=== PATIENT | female | born 1975 | race Caucasian/White ===

== ENCOUNTER 2018-09-25 17:48 | Emergency (ER) | payer BC, MEDICAID ==
[~2018-09-25] VITALS: Ht 172.7 cm; Wt 109.0 kg
[2018-09-25 17:51] VITALS: BP 185/117
[2018-09-25] MEDS ORDERED: HYDROchlorothiazide 25mg tablet PO ONE (18:10)
== END 2018-09-25 18:22 | disposition home or self-care (01) ==
LOC: ER 17:49
DX: I10 Essential (primary) hypertension (principal); Z88.6 Allergy status to analgesic agent; Z88.8 Allergy status to other drugs, medicaments and biological substances
CPT/HCPCS: 99282

== ENCOUNTER 2021-01-22 23:59 | Inpatient (IN) | payer BC, MEDICAID ==
[~2021-01-22] VITALS: Ht 175.3 cm; Wt 106.8 kg
[2021-01-23 01:29] LABS: URINE HCG NEGATIVE (NEG)
[2021-01-23 01:38] LABS: ALANINE AMINOTRANSFERASE 25 U/L (12-78); ALBUMIN/GLOBULIN RATIO 0.6 (1.1-1.5); ALKALINE PHOSPHATASE 100 IU/L (46-116); ANION GAP 12 (8-16); ASPARTATE AMINO TRANSFERASE 21 U/L (10-37); BILIRUBIN,TOTAL 0.4 MG/DL (0.1-1.0); BLOOD UREA NITROGEN 10 MG/DL (7-18); BUN/CREATININE RATIO 10.5 (6.6-38.0); CALCIUM 8.1 MG/DL (8.5-10.1); CHLORIDE 102 MMOL/L (99-107); CREATININE 0.95 MG/DL (0.40-0.90); GLUCOSE 110 MG/DL (70-104); LIPASE 72 U/L (73-393); POTASSIUM 3.7 MMOL/L (3.5-5.1); SODIUM 138 MMOL/L (135-145); TOTAL CARBON DIOXIDE 24.1 MMOL/L (24-32); TOTAL PROTEIN 7.8 G/DL (6.4-8.2); eGFR 64 ML/MIN
[2021-01-23 01:39] LABS: BASOPHILS % (AUTO) 0.3 % (0-1); EOSINOPHILS # (AUTO) 0.1 X10'3 (0-0.9); EOSINOPHILS % (AUTO) 2.1 % (0-6); HEMATOCRIT 28.4 % (35.0-45.0); HEMOGLOBIN 9.1 g/dl (12.0-16.0); LYMPHOCYTES # (AUTO) 0.8 X10'3 (1.1-4.8); LYMPHOCYTES % (AUTO) 11.8 % (21-51); MEAN CORPUSCULAR HEMOGLOBIN 21.8 PG (27.0-31.0); MEAN CORPUSCULAR VOLUME 68.3 FL (78-98); MEAN PLATELET VOLUME 7.1 FL (7.4-10.4); MONOCYTES # (AUTO) 0.9 X10'3 (0-0.9); MONOCYTES % (AUTO) 13.1 % (2-12); NEUTROPHILS # (AUTO) 5.1 X10'3 (1.8-7.7); NEUTROPHILS % (AUTO) 72.7 % (42-75); PLATELET COUNT 337 X10'3 (140-440); RED BLOOD COUNT 4.15 X10'6 (4.20-5.60); RED CELL DISTRIBUTION WIDTH 19.1 % (11.5-14.5)
[2021-01-23 01:51] LABS: UA COLLECTION TYPE CLN CATCH MIDSTREAM
[2021-01-23 01:52] LABS: CLARITY,URINE CLEAR (Clear); COLOR,URINE YELLOW (Yellow); PROTEIN,URINE 30 mg/dl (Neg)
[2021-01-23 01:53] LABS: GLUCOSE, URINE NEGATIVE (Neg); KETONES,URINE NEGATIVE (Neg); LEUKOCYTE ESTERASE ,URINE NEGATIVE (Neg); NITRITES, URINE NEGATIVE (Neg); OCCULT BLOOD,URINE LARGE (Neg)
[2021-01-23 03:41] LABS: ANISOCYTOSIS 2+; MICROCYTOSIS 2+; PLATELET ESTIMATE NORMAL; POIKILOCYTOSIS 1+
[2021-01-23 03:42] LABS: ELLIPTOCYTES 1+
[2021-01-23] MEDS ORDERED: iohexol 300mg/ml 100ml inj. ONE (07:51)
[2021-01-23] MEDS ORDERED: acetaminophen w/codeine (30MG) #3 tablet PO ONE (10:25)
[2021-01-23] MEDS ORDERED: metroNIDAZOLE-Flagyl 500mg/NS 100 ML IV STA (10:49)
[2021-01-23] MEDS ORDERED: CefTRIAXone/D5W-Rocephin 1gm 50 ML IV ONE (10:50)
[2021-01-23] MEDS ORDERED: potassium Cl 40MEQ/1/2NS 520ml 520 ML IV PRN ×2 (11:15)
[2021-01-23] MEDS ORDERED: bisacodyl 10mg suppository rectal RC PRN (11:15)
[2021-01-23] MEDS ORDERED: magnesium Cl slow-release 64mg tablet PO PRN (11:15)
[2021-01-23] MEDS ORDERED: magnesium 4gm in 100ml NS 100 ML IV PRN (11:15)
[2021-01-23] MEDS ORDERED: HYDROcodone/acetaminophen 10/325mg tab PO PRN (11:15)
[2021-01-23] MEDS ORDERED: magnesium 2GM in 50ml NS 50 ML IV PRN (11:15)
[2021-01-23] MEDS ORDERED: HYDROcodone/acetaminophen 5mg/325mg tablet PO PRN (11:15)
[2021-01-23] MEDS ORDERED: potassium Cl 20 mEq SR tablet PO PRN ×2 (11:15)
[2021-01-23] MEDS ORDERED: magnesium hydroxide 30ml (MOM) UD suspension PO PRN (11:15)
[2021-01-23] MEDS ORDERED: acetaminophen 325mg tablet PO PRN (11:15)
[2021-01-23] MEDS ORDERED: mag hydrox/Alum hydrox/simeth 30ml oral suspension PO PRN (11:15)
[2021-01-23] MEDS ORDERED: HYDROmorphone inj. 0.5 MG/0.5 ML DISP.SYRIN IV PRN (11:15)
[2021-01-23] MEDS: normal saline 1000ml 1,000 ML IV SCH (12:09)
[2021-01-23] MEDS ORDERED: METO-384 PO (12:18)
[2021-01-23] MEDS ORDERED: CHLO25TA10 PO (12:18)
[2021-01-23] MEDS ORDERED: TOPI50TA24 PO (12:18)
[2021-01-23] MEDS ORDERED: LOSA50TA3 PO (12:18)
[2021-01-23] MEDS ORDERED: LEVO750T46 PO (12:18)
[2021-01-23] MEDS ORDERED: METR-159 PO (12:18)
[2021-01-23 13:14] LABS: WBC,URINE 0-4 /HPF (0-4)
[2021-01-23 13:15] LABS: BACTERIA,URINE FEW /HPF (Neg); MUCUS STRANDS FEW /LPF (Neg); RBC,URINE 20-50 /HPF (0-2); SQUAMOUS EPITHELIAL CELL,UR MANY /LPF (FEW)
[2021-01-23] MEDS: metroNIDAZOLE-Flagyl 500mg/NS 100 ML IV SCH (16:19)
[2021-01-23] MEDS: acetaminophen 325mg tablet PO PRN (16:23)
[2021-01-23] MEDS: losartan 50mg tablet PO SCH (20:00)
[2021-01-23] MEDS: K and/or MAG REPLACEMENT MC SCH (20:00)
[2021-01-23] MEDS ORDERED: temazepam 15mg capsule PO PRN (21:00)
[2021-01-23] MEDS: acetaminophen w/codeine (30MG) #3 tablet PO PRN (22:58)
[2021-01-23] MEDS: heparin, porcine 5000 units/ml vial SQ SCH (23:03)
[2021-01-24] MEDS: normal saline 1000ml 1,000 ML IV SCH ×4 (01:26→23:11)
[2021-01-24] MEDS: metroNIDAZOLE-Flagyl 500mg/NS 100 ML IV SCH ×3 (02:01→16:38)
[2021-01-24] MEDS ORDERED: losartan 25mg tablet PO ONE (02:30)
[2021-01-24] MEDS ORDERED: losartan 50mg tablet PO ONE (02:30)
[2021-01-24] MEDS: acetaminophen w/codeine (30MG) #3 tablet PO PRN (04:08)
[2021-01-24] MEDS: ondansetron/PF 4mg/2ml inj IV PRN (07:19)
[2021-01-24 07:25] VITALS: BP 153/92
--- NOTE | 2021-01-24 07:45 | NUR ---
Patient in room [facility] 360B. I have received report from JESSICA FARIAS FROM ER and had the opportunity to ask questions and assume patient care.
[2021-01-24] MEDS: K and/or MAG REPLACEMENT MC SCH ×2 (08:00→20:00)
[2021-01-24 08:35] LABS: BASOPHILS % (AUTO) 0.2 % (0-1); EOSINOPHILS # (AUTO) 0.2 X10'3 (0-0.9); HEMATOCRIT 26.6 % (35.0-45.0); HEMOGLOBIN 8.2 g/dl (12.0-16.0); LYMPHOCYTES # (AUTO) 0.7 X10'3 (1.1-4.8); MEAN CORPUSCULAR HEMOGLOBIN 21.4 PG (27.0-31.0); MEAN CORPUSCULAR VOLUME 69.1 FL (78-98); MEAN PLATELET VOLUME 6.7 FL (7.4-10.4); MONOCYTES # (AUTO) 0.6 X10'3 (0-0.9); MONOCYTES % (AUTO) 15.6 % (2-12); NEUTROPHILS # (AUTO) 2.4 X10'3 (1.8-7.7); NEUTROPHILS % (AUTO) 62.2 % (42-75); PLATELET COUNT 297 X10'3 (140-440); RED BLOOD COUNT 3.85 X10'6 (4.20-5.60); RED CELL DISTRIBUTION WIDTH 19.4 % (11.5-14.5); WHITE BLOOD COUNT 3.9 X10'3 (4.5-11.0)
[2021-01-24] MEDS: metoprolol succinate 25mg (24-HOUR) SR. Tablet PO SCH (08:37)
[2021-01-24] MEDS: losartan 50mg tablet PO SCH ×2 (08:37→19:55)
[2021-01-24] MEDS: chlorthalidone 25mg tablet PO SCH (08:37)
[2021-01-24] MEDS: topiramate 25mg tablet PO SCH (08:38)
[2021-01-24] MEDS: heparin, porcine 5000 units/ml vial SQ SCH ×2 (08:39→19:57)
[2021-01-24 09:01] LABS: ANISOCYTOSIS 2+; MICROCYTOSIS 2+; PLATELET ESTIMATE NORMAL; POIKILOCYTOSIS FEW
[2021-01-24 09:02] LABS: ELLIPTOCYTES FEW
[2021-01-24 09:04] LABS: ALANINE AMINOTRANSFERASE 38 U/L (12-78); ALBUMIN 2.7 G/DL (3.4-5.0); ALBUMIN/GLOBULIN RATIO 0.6 (1.1-1.5); ALKALINE PHOSPHATASE 145 IU/L (46-116); ANION GAP 9 (8-16); ASPARTATE AMINO TRANSFERASE 44 U/L (10-37); BILIRUBIN,TOTAL 0.3 MG/DL (0.1-1.0); BLOOD UREA NITROGEN 6 MG/DL (7-18); CALCIUM 7.7 MG/DL (8.5-10.1); CHLORIDE 104 MMOL/L (99-107); CREATININE 0.75 MG/DL (0.40-0.90); GLUCOSE 101 MG/DL (70-104); MAGNESIUM 1.9 MG/DL (1.5-2.4); POTASSIUM 3.7 MMOL/L (3.5-5.1); SODIUM 139 MMOL/L (135-145); TOTAL CARBON DIOXIDE 26.1 MMOL/L (24-32); TOTAL PROTEIN 7.1 G/DL (6.4-8.2); eGFR 84 ML/MIN
[2021-01-24] MEDS: CefTRIAXone/D5W-Rocephin 1gm 50 ML IV SCH (10:58)
[2021-01-24 11:00] VITALS: BP 146/90
[2021-01-24] MEDS: acetaminophen 325mg tablet PO PRN ×2 (12:39→19:52)
[2021-01-24] MEDS ORDERED: hydrALAZINE 20mg/ml inj. IV PRN (17:25)
[2021-01-24 19:00] VITALS: BP 147/85
--- NOTE | 2021-01-24 19:05 | NUR ---
Patient in room [facility] 360. I have received report from Sarahi LOPEZ and had the opportunity to ask questions and assume patient care.
--- NOTE | 2021-01-24 19:22 | NUR ---
Problems reprioritized. Patient report given, questions answered & plan of care reviewed with JESSICA SKELTON.
[2021-01-25] VITALS: BP 159/106
[2021-01-25] MEDS: metroNIDAZOLE-Flagyl 500mg/NS 100 ML IV SCH ×3 (00:31→16:49)
[2021-01-25 07:31] LABS: BASOPHILS % (AUTO) 0.2 % (0-1); EOSINOPHILS # (AUTO) 0.2 X10'3 (0-0.9); EOSINOPHILS % (AUTO) 6.7 % (0-6); HEMATOCRIT 26.8 % (35.0-45.0); HEMOGLOBIN 8.2 g/dl (12.0-16.0); LYMPHOCYTES # (AUTO) 0.9 X10'3 (1.1-4.8); LYMPHOCYTES % (AUTO) 35.9 % (21-51); MEAN CORPUSCULAR HEMOGLOBIN 21.5 PG (27.0-31.0); MEAN CORPUSCULAR HGB CONC 30.7 g/dL (33.0-36.5); MEAN CORPUSCULAR VOLUME 69.8 FL (78-98); MEAN PLATELET VOLUME 6.9 FL (7.4-10.4); MONOCYTES # (AUTO) 0.5 X10'3 (0-0.9); MONOCYTES % (AUTO) 18.4 % (2-12); NEUTROPHILS % (AUTO) 38.8 % (42-75); PLATELET COUNT 281 X10'3 (140-440); RED BLOOD COUNT 3.84 X10'6 (4.20-5.60); WHITE BLOOD COUNT 2.6 X10'3 (4.5-11.0)
--- NOTE | 2021-01-25 07:37 | NUR ---
Problems reprioritized. Patient report given, questions answered & plan of care reviewed with Daria LOPEZ.
[2021-01-25] MEDS: ondansetron/PF 4mg/2ml inj IV PRN ×2 (07:44→18:43)
[2021-01-25] MEDS: acetaminophen 325mg tablet PO PRN (07:44)
[2021-01-25 08:00] VITALS: BP 159/101
[2021-01-25] MEDS: K and/or MAG REPLACEMENT MC SCH ×2 (08:00→20:00)
[2021-01-25 08:03] LABS: ALANINE AMINOTRANSFERASE 38 U/L (12-78); ALBUMIN 2.5 G/DL (3.4-5.0); ALBUMIN/GLOBULIN RATIO 0.6 (1.1-1.5); ALKALINE PHOSPHATASE 125 IU/L (46-116); ANION GAP 11 (8-16); ASPARTATE AMINO TRANSFERASE 32 U/L (10-37); BILIRUBIN,TOTAL 0.2 MG/DL (0.1-1.0); BLOOD UREA NITROGEN 6 MG/DL (7-18); BUN/CREATININE RATIO 7.1 (6.6-38.0); CALCIUM 7.5 MG/DL (8.5-10.1); CHLORIDE 104 MMOL/L (99-107); CREATININE 0.84 MG/DL (0.40-0.90); GLUCOSE 88 MG/DL (70-104); MAGNESIUM 2.1 MG/DL (1.5-2.4); POTASSIUM 3.5 MMOL/L (3.5-5.1); SODIUM 140 MMOL/L (135-145); eGFR 73 ML/MIN
[2021-01-25 08:07] LABS: ANISOCYTOSIS 2+; MICROCYTOSIS 2+; PLATELET ESTIMATE NORMAL; TOTAL CELLS COUNTED 100
[2021-01-25 08:08] LABS: ELLIPTOCYTES FEW
[2021-01-25 08:12] LABS: % IRON SATURATION 6 % (11-46); IRON 14 UG/DL (49-151); TOTAL IRON BINDING CAPACITY 248 UG/DL (259-388)
[2021-01-25] MEDS: topiramate 25mg tablet PO SCH (09:42)
[2021-01-25] MEDS: metoprolol succinate 25mg (24-HOUR) SR. Tablet PO SCH (09:42)
[2021-01-25] MEDS: CefTRIAXone/D5W-Rocephin 1gm 50 ML IV SCH (09:42)
[2021-01-25] MEDS: chlorthalidone 25mg tablet PO SCH (09:43)
[2021-01-25] MEDS: losartan 50mg tablet PO SCH ×2 (09:44→21:19)
[2021-01-25] MEDS: heparin, porcine 5000 units/ml vial SQ SCH ×2 (09:45→21:19)
[2021-01-25 11:00] VITALS: BP 140/86
[2021-01-25] MEDS: normal saline 1000ml 1,000 ML IV SCH ×2 (12:20→23:15)
[2021-01-25] MEDS: iron sucrose complex injection 200 MG in normal saline 100ml IV soln 100 ML IV SCH (12:20)
--- NOTE | 2021-01-25 18:30 | NUR ---
Patient in room [facility] 360. I have received report from NAT and had the opportunity to ask questions and assume patient care.
--- NOTE | 2021-01-25 18:35 | NUR ---
GAVE REPORT TO RENA LOPEZ.
[2021-01-25] MEDS: acetaminophen w/codeine (30MG) #3 tablet PO PRN (18:42)
[2021-01-25 19:00] VITALS: BP 165/87
--- NOTE | 2021-01-25 23:52 | NUR ---
Problems reprioritized. Patient report given, questions answered & plan of care reviewed with CHARLIE.
[2021-01-26] VITALS: BP 135/81
[2021-01-26] MEDS: metroNIDAZOLE-Flagyl 500mg/NS 100 ML IV SCH ×2 (00:25→07:50)
[2021-01-26] MEDS: acetaminophen w/codeine (30MG) #3 tablet PO PRN (02:01)
[2021-01-26] MEDS: ondansetron/PF 4mg/2ml inj IV PRN (04:55)
--- NOTE | 2021-01-26 06:25 | NUR ---
Problems reprioritized. Patient report given, questions answered & plan of care reviewed with NAT LOPEZ.
[2021-01-26 06:50] VITALS: BP 137/93
[2021-01-26 06:52] LABS: BASOPHILS % (AUTO) 0.2 % (0-1); EOSINOPHILS # (AUTO) 0.2 X10'3 (0-0.9); EOSINOPHILS % (AUTO) 4.2 % (0-6); HEMATOCRIT 29.1 % (35.0-45.0); HEMOGLOBIN 9.3 g/dl (12.0-16.0); LYMPHOCYTES # (AUTO) 0.6 X10'3 (1.1-4.8); MEAN CORPUSCULAR HEMOGLOBIN 21.8 PG (27.0-31.0); MEAN CORPUSCULAR HGB CONC 32.1 g/dL (33.0-36.5); MEAN CORPUSCULAR VOLUME 67.9 FL (78-98); MEAN PLATELET VOLUME 6.7 FL (7.4-10.4); MONOCYTES # (AUTO) 0.4 X10'3 (0-0.9); MONOCYTES % (AUTO) 11.2 % (2-12); NEUTROPHILS # (AUTO) 2.7 X10'3 (1.8-7.7); NEUTROPHILS % (AUTO) 69.4 % (42-75); PLATELET COUNT 325 X10'3 (140-440); RED BLOOD COUNT 4.28 X10'6 (4.20-5.60); RED CELL DISTRIBUTION WIDTH 18.9 % (11.5-14.5); WHITE BLOOD COUNT 3.9 X10'3 (4.5-11.0)
[2021-01-26 07:19] LABS: ALANINE AMINOTRANSFERASE 80 U/L (12-78); ALBUMIN 2.9 G/DL (3.4-5.0); ALBUMIN/GLOBULIN RATIO 0.6 (1.1-1.5); ALKALINE PHOSPHATASE 261 IU/L (46-116); ANION GAP 9 (8-16); ASPARTATE AMINO TRANSFERASE 200 U/L (10-37); BILIRUBIN,TOTAL 0.3 MG/DL (0.1-1.0); BLOOD UREA NITROGEN 4 MG/DL (7-18); BUN/CREATININE RATIO 4.7 (6.6-38.0); CHLORIDE 104 MMOL/L (99-107); CREATININE 0.86 MG/DL (0.40-0.90); GLUCOSE 100 MG/DL (70-104); POTASSIUM 3.7 MMOL/L (3.5-5.1); SODIUM 137 MMOL/L (135-145); TOTAL CARBON DIOXIDE 23.9 MMOL/L (24-32); TOTAL PROTEIN 7.7 G/DL (6.4-8.2); eGFR 71 ML/MIN
[2021-01-26 07:49] LABS: ANISOCYTOSIS 2+; ELLIPTOCYTES 1+; MICROCYTOSIS 2+; PLATELET ESTIMATE NORMAL
[2021-01-26] MEDS: normal saline 1000ml 1,000 ML IV SCH (07:50)
[2021-01-26] MEDS: K and/or MAG REPLACEMENT MC SCH (08:00)
[2021-01-26] MEDS: CefTRIAXone/D5W-Rocephin 1gm 50 ML IV SCH (08:56)
[2021-01-26] MEDS: topiramate 25mg tablet PO SCH (08:56)
[2021-01-26 08:57] VITALS: BP_SYST 146
[2021-01-26] MEDS: losartan 50mg tablet PO SCH (08:57)
[2021-01-26] MEDS: heparin, porcine 5000 units/ml vial SQ SCH (08:57)
[2021-01-26] MEDS: chlorthalidone 25mg tablet PO SCH (08:57)
[2021-01-26] MEDS ORDERED: CEFD300C3 PO (10:03)
[2021-01-26] MEDS: iron sucrose complex injection 200 MG in normal saline 100ml IV soln 100 ML IV SCH (10:56)
--- NOTE | 2021-01-26 11:19 | NUR ---
PAGER ID: [phone] MESSAGE: Neha Woods Just MARILUI wanted you to know liver enzymes shot up significantly overnight, before I discharge pt. Daria [id number]
--- NOTE | 2021-01-26 13:05 | NUR ---
PAGER ID: [phone] MESSAGE: Can you call surgical [phone] about Nehasa Cervantes? Question about surgical. Daria Koo08
--- NOTE | 2021-01-26 13:30 | NUR ---
Pt. discharged. Reviewed discharge paperwork with pt. She knows she needs to p/u cefdinire at [facility]. Flagyl DC'd per Marsha and pt. aware. Written education provided on diverticulitis. Pt. know to follow up op with Chun and has contact information. IV DC'd cannula intact, pressure bandage applied, no s/sx bleeding noted. Hospitalist aware AST ALT labs elevated. States he has discussed with pt. to get a f/u CMp next week. pt left with her belongings. Daughter here to give her a ride home.
[2021-01-26] MEDS ORDERED: metoprolol succinate 25mg (24-HOUR) SR. Tablet PO SCH (21:00)
== END 2021-01-26 13:30 | disposition home or self-care (01) | DRG 244 ==
LOC: ER 01-23 00:07 → ED HOLD 01-23 11:11 → SUR 3N 01-24 07:49
PROVIDERS: ADMIT Family Medicine; ATTEND Family Medicine
PROC: BW211ZZ Computerized Tomography (CT Scan) of Abdomen and Pelvis using Low Osmolar Contrast (ICD-10-PCS; principal; 2021-01-23)
DX: K57.32 Diverticulitis of large intestine without perforation or abscess without bleeding (principal); N17.0 Acute kidney failure with tubular necrosis; D50.9 Iron deficiency anemia, unspecified; E86.0 Dehydration; I10 Essential (primary) hypertension; I16.0 Hypertensive urgency; J45.909 Unspecified asthma, uncomplicated; N20.0 Calculus of kidney; G43.909 Migraine, unspecified, not intractable, without status migrainosus; R74.01 Elevation of levels of liver transaminase levels; R31.0 Gross hematuria; Z87.442 Personal history of urinary calculi; Z90.49 Acquired absence of other specified parts of digestive tract; Z88.8 Allergy status to other drugs, medicaments and biological substances; Z98.51 Tubal ligation status; Z79.899 Other long term (current) drug therapy
CPT/HCPCS: 36415; 74177; 80053; 81001; 81025; 83540; 83550; 83605; 83690; 83735; 85007; 85008; 85025; 87040; 87081; 96365; 99285; G0378; J0696; J1644; J1756; J2405; J3490; J7030; Q9967

== ENCOUNTER 2021-04-09 17:39 | Inpatient (IN) | payer MEDICAID ==
[~2021-04-09] VITALS: Ht 175.3 cm; Wt 99.2 kg
[~2021-04-09 17:39] MED LIST: CEFD300C3 PO; CHLO25TA10 PO; LOSA50TA3 PO; METO-384 PO; METR-159 PO; TOPI50TA24 PO
[2021-04-09] MEDS ORDERED: ondansetron/PF 4mg/2ml inj IV ONE (18:15)
[2021-04-09] MEDS ORDERED: fentaNYL/PF 50MCG/1 ML 2ML syringe IV ONE (18:15)
[2021-04-09] MEDS ORDERED: normal saline 1000ML IV soln IV ONE (18:15)
[2021-04-09 18:48] LABS: BASOPHILS % (AUTO) 0.2 % (0-1); EOSINOPHILS # (AUTO) 0.1 X10'3 (0-0.9); EOSINOPHILS % (AUTO) 1.4 % (0-6); HEMATOCRIT 34.5 % (35.0-45.0); HEMOGLOBIN 11.3 g/dl (12.0-16.0); LYMPHOCYTES # (AUTO) 1.8 X10'3 (1.1-4.8); LYMPHOCYTES % (AUTO) 26.2 % (21-51); MEAN CORPUSCULAR HEMOGLOBIN 23.4 PG (27.0-31.0); MEAN CORPUSCULAR HGB CONC 32.6 g/dL (33.0-36.5); MEAN CORPUSCULAR VOLUME 71.8 FL (78-98); MONOCYTES # (AUTO) 0.8 X10'3 (0-0.9); NEUTROPHILS # (AUTO) 4.2 X10'3 (1.8-7.7); NEUTROPHILS % (AUTO) 60.2 % (42-75); PLATELET COUNT 456 X10'3 (140-440); RED CELL DISTRIBUTION WIDTH 19.8 % (11.5-14.5)
[2021-04-09 19:04] LABS: ALANINE AMINOTRANSFERASE 38 U/L (12-78); ALBUMIN 3.8 G/DL (3.4-5.0); ALBUMIN/GLOBULIN RATIO 0.8 (1.1-1.5); ALKALINE PHOSPHATASE 94 IU/L (46-116); ANION GAP 10 (8-16); ASPARTATE AMINO TRANSFERASE 33 U/L (10-37); BILIRUBIN,TOTAL 0.3 MG/DL (0.1-1.0); BLOOD UREA NITROGEN 12 MG/DL (7-18); BUN/CREATININE RATIO 10.8 (6.6-38.0); CALCIUM 9.1 MG/DL (8.5-10.1); CHLORIDE 101 MMOL/L (99-107); CREATININE 1.11 MG/DL (0.40-0.90); GLUCOSE 101 MG/DL (70-104); POTASSIUM 3.4 MMOL/L (3.5-5.1); SODIUM 135 MMOL/L (135-145); TOTAL CARBON DIOXIDE 24.3 MMOL/L (24-32); TOTAL PROTEIN 8.5 G/DL (6.4-8.2); eGFR 53 ML/MIN
[2021-04-09] MEDS ORDERED: ondansetron 4mg rapidly disintigrating tab PO ONE (20:05)
[2021-04-09 20:37] LABS: ANISOCYTOSIS 2+; MICROCYTOSIS 1+; PLATELET ESTIMATE NORMAL
[2021-04-09 20:39] LABS: ELLIPTOCYTES FEW
[2021-04-09] MEDS ORDERED: LIDOcaine 2% 10ml TOPICAL JELLY (Urojet) MM ONE (21:10)
[2021-04-09] MEDS ORDERED: acetaminophen 1,000mg/100ml IV 100 ML IV ONE (21:10)
[2021-04-09] MEDS ORDERED: mag hydrox/Alum hydrox/simeth 30ml oral suspension PO PRN (22:30)
[2021-04-09] MEDS ORDERED: potassium Cl 40MEQ/1/2NS 520ml 520 ML IV PRN ×2 (22:30)
[2021-04-09] MEDS ORDERED: magnesium hydroxide 30ml (MOM) UD suspension PO PRN (22:30)
[2021-04-09] MEDS ORDERED: ketorolac trometh. 30mg/ml inj. IV ONE (22:35)
[2021-04-09] MEDS: ondansetron/PF 4mg/2ml inj IV PRN (23:18)
[2021-04-09] MEDS ORDERED: losartan 50mg tablet PO SCH (23:25)
[2021-04-09] MEDS ORDERED: topiramate 25mg tablet PO PRN (23:25)
[2021-04-10] MEDS: normal saline 1000ml 1,000 ML IV SCH ×3 (00:20→18:30)
[2021-04-10] MEDS: piperacillin/tazo 3.375gm/50ml 50 ML IV SCH ×3 (00:30→17:02)
[2021-04-10] MEDS: metroNIDAZOLE-Flagyl 500mg/NS 100 ML IV SCH ×4 (00:31→23:41)
[2021-04-10 01:19] LABS: BASOPHILS % (AUTO) 0.1 % (0-1); EOSINOPHILS % (AUTO) 0.2 % (0-6); HEMATOCRIT 30.1 % (35.0-45.0); HEMOGLOBIN 10.2 g/dl (12.0-16.0); LYMPHOCYTES % (AUTO) 12.4 % (21-51); MEAN CORPUSCULAR HEMOGLOBIN 24.3 PG (27.0-31.0); MEAN CORPUSCULAR HGB CONC 33.8 g/dL (33.0-36.5); MEAN CORPUSCULAR VOLUME 71.7 FL (78-98); MEAN PLATELET VOLUME 7.1 FL (7.4-10.4); MONOCYTES # (AUTO) 0.6 X10'3 (0-0.9); NEUTROPHILS # (AUTO) 6.6 X10'3 (1.8-7.7); NEUTROPHILS % (AUTO) 80.3 % (42-75); PLATELET COUNT 360 X10'3 (140-440); RED CELL DISTRIBUTION WIDTH 20.2 % (11.5-14.5); WHITE BLOOD COUNT 8.2 X10'3 (4.5-11.0)
[2021-04-10 01:42] LABS: ALANINE AMINOTRANSFERASE 32 U/L (12-78); ALBUMIN 3.2 G/DL (3.4-5.0); ALBUMIN/GLOBULIN RATIO 0.8 (1.1-1.5); ALKALINE PHOSPHATASE 84 IU/L (46-116); ANION GAP 11 (8-16); ASPARTATE AMINO TRANSFERASE 27 U/L (10-37); BILIRUBIN,TOTAL 0.3 MG/DL (0.1-1.0); BLOOD UREA NITROGEN 10 MG/DL (7-18); BUN/CREATININE RATIO 10.3 (6.6-38.0); CALCIUM 7.8 MG/DL (8.5-10.1); CHLORIDE 107 MMOL/L (99-107); CREATININE 0.97 MG/DL (0.40-0.90); GLUCOSE 130 MG/DL (70-104); POTASSIUM 3.3 MMOL/L (3.5-5.1); SODIUM 141 MMOL/L (135-145); TOTAL CARBON DIOXIDE 22.7 MMOL/L (24-32); TOTAL PROTEIN 7.3 G/DL (6.4-8.2); eGFR 62 ML/MIN
[2021-04-10] MEDS: acetaminophen 1,000mg/100ml IV 100 ML IV SCH ×3 (03:42→17:01)
--- NOTE | 2021-04-10 04:00 | NUR ---
NO CHANGE IN PT STATUS; PT HAS ROLLED TO HER LEFT SIDE AND FEELS BETTER IN THIS POSITION; WILL CTM; VSS
[2021-04-10] MEDS: docusate sod 100mg capsule PO SCH ×2 (07:58→20:00)
[2021-04-10] MEDS: metoprolol succinate 25mg (24-HOUR) SR. Tablet PO SCH (07:58)
[2021-04-10] MEDS ORDERED: K and/or MAG REPLACEMENT MC SCH (08:00)
[2021-04-10] MEDS: heparin, porcine 5000 units/ml vial SQ SCH ×2 (08:11→20:00)
[2021-04-10] MEDS ORDERED: magnesium Cl slow-release 64mg tablet PO PRN (08:40)
[2021-04-10] MEDS ORDERED: magnesium 4gm in 100ml NS 100 ML IV PRN (08:40)
[2021-04-10] MEDS: ondansetron/PF 4mg/2ml inj IV PRN ×3 (09:41→21:47)
[2021-04-10] MEDS ORDERED: PEG 3350/Na sulf,bicarb,Cl/KCl oral sol 4 liter bottle PO ONE (11:50)
--- NOTE | 2021-04-10 17:36 | NUR ---
Received partial report from Nyaeli in ER . Aware patient last BP 160/110, asked for new set of vitals. RN will speak with her charge and get back with me.
--- NOTE | 2021-04-10 17:40 | NUR ---
Dr Iglesias paged regarding elevated blood pressure, awaiting call back
[2021-04-10] MEDS ORDERED: enalaprilat dihydrate 2.5mg/2ml vial IV ONE (19:10)
[2021-04-10] MEDS ORDERED: hydrALAZINE 20mg/ml inj. IV ONE (19:20)
[2021-04-10] MEDS: K and/or MAG REPLACEMENT MC SCH (20:00)
[2021-04-10 20:15] VITALS: BP 159/108
[2021-04-10] MEDS: acetaminophen 325mg tablet PO PRN (22:07)
[2021-04-11] VITALS (22 sets, daily range): BP systolic 100–197; BP diastolic 70–126
--- NOTE | 2021-04-11 00:23 | NUR ---
TT Dr Jones regarding patients slow intake of go lytely prep. Karen said wait 2 hours and resume. Currently patient is only receiving 100ml per 30 to 60 min which is a long way to go to reach 4L total intake. JT
[2021-04-11] MEDS: piperacillin/tazo 3.375gm/50ml 50 ML IV SCH ×3 (00:48→17:00)
--- NOTE | 2021-04-11 03:50 | NUR ---
Patient in room [facility] 350. I have received report from nipple maker Penny and had the opportunity to ask questions and assume patient care.
[2021-04-11] MEDS: normal saline 1000ml 1,000 ML IV SCH ×2 (04:30→14:30)
[2021-04-11] MEDS ORDERED: magnesium citrate 296ml oral solution PO ONE (06:05)
[2021-04-11 06:23] LABS: BASOPHILS % (AUTO) 0.1 % (0-1); EOSINOPHILS % (AUTO) 0.3 % (0-6); HEMATOCRIT 30.6 % (35.0-45.0); HEMOGLOBIN 10.1 g/dl (12.0-16.0); LYMPHOCYTES % (AUTO) 13.4 % (21-51); MEAN CORPUSCULAR HEMOGLOBIN 23.7 PG (27.0-31.0); MEAN CORPUSCULAR HGB CONC 32.9 g/dL (33.0-36.5); MEAN CORPUSCULAR VOLUME 72.2 FL (78-98); MEAN PLATELET VOLUME 6.9 FL (7.4-10.4); MONOCYTES # (AUTO) 0.5 X10'3 (0-0.9); MONOCYTES % (AUTO) 6.4 % (2-12); NEUTROPHILS # (AUTO) 5.7 X10'3 (1.8-7.7); NEUTROPHILS % (AUTO) 79.8 % (42-75); PLATELET COUNT 375 X10'3 (140-440); RED BLOOD COUNT 4.24 X10'6 (4.20-5.60); RED CELL DISTRIBUTION WIDTH 19.6 % (11.5-14.5); WHITE BLOOD COUNT 7.1 X10'3 (4.5-11.0)
--- NOTE | 2021-04-11 06:35 | NUR ---
Patient in room [facility] 350. I have received report from JESSICA SOTO and had the opportunity to ask questions and assume patient care.
[2021-04-11 06:52] LABS: ALANINE AMINOTRANSFERASE 31 U/L (12-78); ALBUMIN 3.3 G/DL (3.4-5.0); ALBUMIN/GLOBULIN RATIO 0.8 (1.1-1.5); ALKALINE PHOSPHATASE 85 IU/L (46-116); ANION GAP 12 (8-16); ASPARTATE AMINO TRANSFERASE 26 U/L (10-37); BILIRUBIN,TOTAL 0.4 MG/DL (0.1-1.0); BLOOD UREA NITROGEN 4 MG/DL (7-18); BUN/CREATININE RATIO 4.8 (6.6-38.0); CHLORIDE 106 MMOL/L (99-107); CREATININE 0.83 MG/DL (0.40-0.90); GLUCOSE 119 MG/DL (70-104); MAGNESIUM 1.9 MG/DL (1.5-2.4); PHOSPHORUS 2.3 MG/DL (2.3-4.5); SODIUM 142 MMOL/L (135-145); TOTAL CARBON DIOXIDE 23.9 MMOL/L (24-32); TOTAL PROTEIN 7.5 G/DL (6.4-8.2); eGFR 74 ML/MIN
[2021-04-11] MEDS: acetaminophen w/codeine (30MG) #3 tablet PO PRN ×2 (06:53→10:39)
[2021-04-11] MEDS: K and/or MAG REPLACEMENT MC SCH ×2 (07:43→20:00)
[2021-04-11] MEDS: heparin, porcine 5000 units/ml vial SQ SCH ×2 (07:44→20:00)
[2021-04-11] MEDS: docusate sod 100mg capsule PO SCH ×2 (07:44→20:00)
[2021-04-11] MEDS: metoprolol succinate 25mg (24-HOUR) SR. Tablet PO SCH (08:03)
[2021-04-11] MEDS: metroNIDAZOLE-Flagyl 500mg/NS 100 ML IV SCH ×2 (08:03→16:25)
[2021-04-11] MEDS: ondansetron/PF 4mg/2ml inj IV PRN (08:09)
[2021-04-11 12:33] LABS: ANISOCYTOSIS 2+; ELLIPTOCYTES FEW; MICROCYTOSIS 1+; PLATELET ESTIMATE NORMAL
[2021-04-11] MEDS ORDERED: fentaNYL/PF 50MCG/1 ML 2ML syringe ONE ×2 (12:47→13:51)
[2021-04-11] MEDS ORDERED: MIDAZolam 1 MG/ML 5ML VIAL ONE (12:47)
[2021-04-11] MEDS ORDERED: diphenhydrAMINE 50 mg/ml inj ONE (13:19)
[2021-04-11] MEDS ORDERED: ondansetron/PF 4mg/2ml inj ONE (13:19)
[2021-04-11] MEDS ORDERED: HYDROmorphone 1 mg/ml syringe IV PRN ×2 (15:55→16:10)
[2021-04-11] MEDS: vancomycin/NS 1 GM ADD-VANTAGE 250 ML IV SCH (17:00)
[2021-04-11] MEDS ORDERED: HYDROmorphone inj. 0.5 MG/0.5 ML DISP.SYRIN IV PRN (17:25)
[2021-04-11] MEDS ORDERED: HYDROmorphone/PF 0.2 MG/ML SYRINGE ONE (17:34)
--- NOTE | 2021-04-11 17:45 | NUR ---
IV DC'd, tip intact. Pt left AMA. aware.
--- NOTE | 2021-04-11 18:05 | NUR ---
Patient in room [facility] 350. I have received report from JESSICA Isabel and had the opportunity to ask questions and assume patient care.
[2021-04-11] MEDS ORDERED: HYDROmorphone/PF 0.2 MG/ML SYRINGE IV PRN (18:13)
[2021-04-11] MEDS ORDERED: scopolamine 1mg/72 hr patch TD ONE (18:19)
[2021-04-11] MEDS ORDERED: fentaNYL /PF 50mcg/ml 5ml ampule ONE (18:20)
--- NOTE | 2021-04-11 18:40 | NUR ---
Problems reprioritized. Patient report given, questions answered & plan of care reviewed with JESSICA Hill.
[2021-04-11] MEDS ORDERED: insulin regular, human U-100 3ml vial - multi-dose ONE (19:02)
[2021-04-11] MEDS ORDERED: albumin (Human) 5% 250ml 250 ML IV ONE (19:21)
[2021-04-11] MEDS ORDERED: NORepinephrine 1 mg/ml inj IV ONE (19:23)
[2021-04-11 20:28] LABS: ABG BASE EXCESS -13.7 mmol/L (-2.0-2.0); ABG HCO3 13.4 mmol/L (22.0-26.0); ABG OXYGEN SATURATION 96.4 % (94-97); ABG PCO2 (T) 32.4 mmHg (32.0-45.0); ABG PO2 (T) 89.5 mmHg (75.0-100.0); FCOHb 0.6 % (0.0-3.9); FMetHb 0.1 % (0.0-1.5); FO2Hb 95.7 % (94-97); TOTAL HEMOGLOBIN 11.7 G/dl (12.0-16.0)
[2021-04-11] MEDS ORDERED: midazolam 1 mg/ML 2ml injection IV ONE (20:40)
[2021-04-11] MEDS ORDERED: midazolam 100mg in NS 100ml 100 ML IV PRN (20:40)
[2021-04-11] MEDS ORDERED: ipratropium/albuterol 3ml nebule NEB PRN (20:40)
[2021-04-11] MEDS ORDERED: fentaNYL/PF 50MCG/1 ML 2ML syringe IV PRN (20:40)
[2021-04-11] MEDS ORDERED: propofol inj 20 ML IV ONE (20:57)
[2021-04-11] MEDS ORDERED: LIDOcaine 2% (20mg/ml) 5ml vial ONE (20:57)
[2021-04-11] MEDS ORDERED: rocuronium 10mg/ml inj IV ONE (20:57)
[2021-04-11] MEDS ORDERED: sodium bicarbonate (8.4%) inj. 1 MEQ/ML ML ONE (20:57)
[2021-04-11] MEDS ORDERED: phenylephrine 10mg/ml inj. ONE (20:58)
[2021-04-11] MEDS ORDERED: midazolam 1 mg/ML 2ml injection ONE (20:58)
[2021-04-11] MEDS ORDERED: albumin (Human) 5% 250ml 500 ML IV ONE (20:58)
[2021-04-11] MEDS ORDERED: esmolol inj. 10 ML IV ONE (21:01)
--- NOTE | 2021-04-11 21:50 | NUR ---
PT ARRIVED FROM OR VIA BED ACCOMPANIED BY DR NAVARRETE-REPORT GIVEN, PT INTUBATED SZ 7 TUBE AT 21CM AFTER CHEST XRAY FOR PLACEMENT CHECK OK'D BY DR NAVARRETE, GEHC608%, TV600, RR14, PSV10, PEEP5, RT PRESENT-ABGS DONE, VSS, PT RESPONSIVE TO VOICE, ABLE TO SQUEEZE FINGERS WITH RASS 0-2 ORDERED, F/C DARK YELLOW URINE-DRAINING, LARGE ABD DRSG-MIDLINE WITH FRESH COLOSTOMY, BAG IN PLACE-BLEEDING NOTED AT STOMA SITE, WILL MONITOR AND REINFORCE OSTOMY BAG, SCDS IN PLACE, ART LINE TO LEFT WRIST, 3 LUMEN TO RIGHT NECK-LR RUNNING AT 100ML/HR, NG TUBE TO LEFT NARE-AT LOW CONT SXN HAS DARK BROWN DRAINAGE OUT, LEVOPHED STILL AT 0.1MCG/KG/HR. PIV 20G TO RIGHT A/C,
--- NOTE | 2021-04-11 22:00 | NUR ---
Patient arrived to the unit from the OR around 2200
[2021-04-11 22:10] LABS: ABG BASE EXCESS -9.5 mmol/L (-2.0-2.0); ABG HCO3 16.1 mmol/L (22.0-26.0); ABG OXYGEN SATURATION 93.7 % (94-97); ABG PCO2 (T) 33.9 mmHg (32.0-45.0); ABG PO2 (T) 76.7 mmHg (75.0-100.0); FCOHb 0.9 % (0.0-3.9); FMetHb 0.2 % (0.0-1.5); FO2Hb 92.7 % (94-97); PEEP 5 cm H2O; RESPIRATORY RATE 14 b/min; TIDAL VOLUME 600 mL; TOTAL HEMOGLOBIN 11.1 G/dl (12.0-16.0)
--- NOTE | 2021-04-11 22:30 | NUR ---
FENTANYL AND VERSED STARTED ORDERED TO KEEP PT SEDATED AND COMFORTABLE, LEVO STILL AT 0.1MCG/KG/ML, VSS, NO CHANGES IN OTHER STATUS.
[2021-04-11 22:49] LABS: BASOPHILS % (AUTO) 0.2 % (0-1); EOSINOPHILS % (AUTO) 0.3 % (0-6); HEMATOCRIT 33.3 % (35.0-45.0); HEMOGLOBIN 10.4 g/dl (12.0-16.0); LYMPHOCYTES # (AUTO) 0.4 X10'3 (1.1-4.8); LYMPHOCYTES % (AUTO) 17.8 % (21-51); MEAN CORPUSCULAR HEMOGLOBIN 23.1 PG (27.0-31.0); MEAN CORPUSCULAR HGB CONC 31.1 g/dL (33.0-36.5); MEAN CORPUSCULAR VOLUME 74.4 FL (78-98); MEAN PLATELET VOLUME 7.2 FL (7.4-10.4); MONOCYTES # (AUTO) 0.2 X10'3 (0-0.9); MONOCYTES % (AUTO) 10.1 % (2-12); NEUTROPHILS # (AUTO) 1.7 X10'3 (1.8-7.7); NEUTROPHILS % (AUTO) 71.6 % (42-75); PLATELET COUNT 466 X10'3 (140-440); RED BLOOD COUNT 4.48 X10'6 (4.20-5.60); RED CELL DISTRIBUTION WIDTH 19.6 % (11.5-14.5); WHITE BLOOD COUNT 2.4 X10'3 (4.5-11.0)
--- NOTE | 2021-04-11 22:55 | NUR ---
PT REMAINS SEDATED RASS -1 WILL RESPOND TO VERBAL STIMULI, STILL SINUS TACH, VERSED AND FENTANYL RUNNING ORDERED TO 20G PIV, LEVOPHED STILL AT 0.1MCG/KG/MIN, F/C DRAINING DARK URINE, CVL AND ART LINE INTACT, ABD DRSG UNCHANGED-MONITORING OUTPUT AND BLOODY DRAINAGE, NG-LOW CONT SXN- DARK BROWN DRAINAGE, SCDS IN PLACE, WRIST RESTRAINTS INPLACE FOR SAFETY, ET TUBE AT 21CM AT LIP MIDLINE, SIMV SETTINGS UNCHANGED, REPORT GIVEN TO PRIMARY RN LUZ AND CHARGE GRACIE-ALL QUESTIONS ANSWERED, NO CHANGES IN ASSESSMENT.
[2021-04-11 22:58] LABS: PARTIAL THROMBOPLASTIN TIME 29 SECONDS (22-32)
[2021-04-11 23:11] LABS: ALANINE AMINOTRANSFERASE 42 U/L (12-78); ALBUMIN 2.1 G/DL (3.4-5.0); ALKALINE PHOSPHATASE 262 IU/L (46-116); ANION GAP 10 (8-16); ASPARTATE AMINO TRANSFERASE 99 U/L (10-37); BILIRUBIN,TOTAL 1.2 MG/DL (0.1-1.0); BLOOD UREA NITROGEN 13 MG/DL (7-18); BUN/CREATININE RATIO 11.1 (6.6-38.0); CALCIUM 6.2 MG/DL (8.5-10.1); CHLORIDE 115 MMOL/L (99-107); CREATININE 1.17 MG/DL (0.40-0.90); GLUCOSE 119 MG/DL (70-104); MAGNESIUM 2.3 MG/DL (1.5-2.4); POTASSIUM 4.3 MMOL/L (3.5-5.1); SODIUM 145 MMOL/L (135-145); TOTAL CARBON DIOXIDE 19.8 MMOL/L (24-32); TOTAL PROTEIN 4.2 G/DL (6.4-8.2); eGFR 50 ML/MIN
[2021-04-11] MEDS: FENTANYL-0.9 % NACL/PF 100 ML IV PRN (23:41)
[2021-04-11] MEDS: ringers solution, lacted 1,000 ML IV SCH (23:48)
[2021-04-12] VITALS (23 sets, daily range): BP systolic 87–105; BP diastolic 54–72
[2021-04-12] MEDS: normal saline 1000ml 1,000 ML IV SCH (00:30)
[2021-04-12] MEDS: vancomycin/NS 1 GM ADD-VANTAGE 250 ML IV SCH ×2 (00:54→13:11)
[2021-04-12] MEDS: NORepinephrine 8mg/ 250ml NS 250 ML IV PRN ×3 (00:59→16:08)
[2021-04-12] MEDS: piperacillin/tazo 3.375gm/50ml 50 ML IV SCH ×3 (01:03→16:07)
[2021-04-12 02:21] LABS: TOTAL CELLS COUNTED 100
[2021-04-12 02:22] LABS: SMUDGE CELLS FEW
[2021-04-12 02:23] LABS: ANISOCYTOSIS 2+; MICROCYTOSIS 1+; PLATELET ESTIMATE INCREASED
[2021-04-12 02:23] LABS: ABG BASE EXCESS -10.1 mmol/L (-2.0-2.0); ABG HCO3 15.1 mmol/L (22.0-26.0); ABG OXYGEN SATURATION 97.4 % (94-97); ABG PCO2 (T) 30.1 mmHg (32.0-45.0); ABG PO2 (T) 100.4 mmHg (75.0-100.0); FCOHb 0.6 % (0.0-3.9); FMetHb 0.1 % (0.0-1.5); FO2Hb 96.7 % (94-97); PATIENT TEMPERATURE 36.1; RESPIRATORY RATE 18 b/min; TIDAL VOLUME 400 mL; TOTAL HEMOGLOBIN 12.8 G/dl (12.0-16.0)
[2021-04-12 02:24] LABS: ELLIPTOCYTES 1+; POLYCHROMASIA FEW
[2021-04-12 02:40] LABS: NUCLEATED RED BLOOD CELLS 0 /100WBC (0-0)
[2021-04-12] MEDS: propofol 1000mg/100ml bottle 100 ML IV SCH ×2 (03:28→20:10)
[2021-04-12 03:51] LABS: BASOPHILS % (AUTO) 0.1 % (0-1); EOSINOPHILS % (AUTO) 0.1 % (0-6); HEMATOCRIT 39.3 % (35.0-45.0); HEMOGLOBIN 12.3 g/dl (12.0-16.0); LYMPHOCYTES # (AUTO) 0.6 X10'3 (1.1-4.8); LYMPHOCYTES % (AUTO) 14.7 % (21-51); MEAN CORPUSCULAR HEMOGLOBIN 23.4 PG (27.0-31.0); MEAN CORPUSCULAR HGB CONC 31.4 g/dL (33.0-36.5); MEAN CORPUSCULAR VOLUME 74.3 FL (78-98); MEAN PLATELET VOLUME 7.6 FL (7.4-10.4); MONOCYTES # (AUTO) 0.4 X10'3 (0-0.9); MONOCYTES % (AUTO) 8.8 % (2-12); NEUTROPHILS # (AUTO) 3.1 X10'3 (1.8-7.7); NEUTROPHILS % (AUTO) 76.3 % (42-75); PLATELET COUNT 520 X10'3 (140-440); RED BLOOD COUNT 5.29 X10'6 (4.20-5.60); RED CELL DISTRIBUTION WIDTH 20.4 % (11.5-14.5); WHITE BLOOD COUNT 4.1 X10'3 (4.5-11.0)
[2021-04-12 04:11] LABS: ALANINE AMINOTRANSFERASE 61 U/L (12-78); ALBUMIN 2.2 G/DL (3.4-5.0); ALBUMIN/GLOBULIN RATIO 0.9 (1.1-1.5); ALKALINE PHOSPHATASE 257 IU/L (46-116); ANION GAP 12 (8-16); ASPARTATE AMINO TRANSFERASE 143 U/L (10-37); BILIRUBIN,TOTAL 1.3 MG/DL (0.1-1.0); BLOOD UREA NITROGEN 17 MG/DL (7-18); BUN/CREATININE RATIO 10.8 (6.6-38.0); CALCIUM 6.4 MG/DL (8.5-10.1); CHLORIDE 112 MMOL/L (99-107); CREATININE 1.57 MG/DL (0.40-0.90); GLUCOSE 182 MG/DL (70-104); MAGNESIUM 2.4 MG/DL (1.5-2.4); PHOSPHORUS 1.8 MG/DL (2.3-4.5); POTASSIUM 4.5 MMOL/L (3.5-5.1); SODIUM 141 MMOL/L (135-145); TOTAL CARBON DIOXIDE 16.6 MMOL/L (24-32); TOTAL PROTEIN 4.7 G/DL (6.4-8.2); eGFR 36 ML/MIN
[2021-04-12] MEDS ORDERED: ringers solution, lacted 1,000 ML IV ONE (04:40)
[2021-04-12] MEDS ORDERED: albumin (Human) 5% 250ml 250 ML IV ONE ×2 (04:40→06:20)
[2021-04-12] MEDS: vasopressin inj. 40 UNIT in normal saline 50ml IV soln 38 ML IV SCH ×2 (04:45→21:25)
--- NOTE | 2021-04-12 06:19 | NUR ---
Problems reprioritized. Patient report given, questions answered & plan of care reviewed with Lawrence LOPEZ at bedside.
[2021-04-12] MEDS: famotidine/PF 10 mg/ml inj IV SCH ×2 (07:39→20:09)
[2021-04-12] MEDS: K and/or MAG REPLACEMENT MC SCH ×2 (08:00→20:00)
[2021-04-12] MEDS: heparin, porcine 5000 units/ml vial SQ SCH ×2 (08:00→20:09)
[2021-04-12] MEDS: docusate sod 100mg capsule PO SCH ×2 (08:00→20:00)
[2021-04-12] MEDS: ringers solution, lacted 1,000 ML IV SCH (09:40)
[2021-04-12] MEDS: FENTANYL-0.9 % NACL/PF 100 ML IV PRN ×2 (10:24→20:09)
[2021-04-12] MEDS ORDERED: acetaminophen 650mg rectal suppository RC PRN (11:15)
[2021-04-12 11:30] LABS: CLARITY,URINE Cloudy (Clear); COLOR,URINE AMBER (Yellow); UA COLLECTION TYPE FOLEY CATH
[2021-04-12 11:34] LABS: COARSE GRANULAR CAST 0-3 /LPF (NEGATIVE); HYALINE CASTS 0-3 /LPF (NEGATIVE)
[2021-04-12 11:35] LABS: BACTERIA,URINE 1+ /HPF (Neg); CAL OXALATE CRYSTALS FEW /HPF (NEGATIVE); RBC,URINE 0-2 /HPF (0-2); SQUAMOUS EPITHELIAL CELL,UR FEW /LPF (FEW); WBC,URINE 0-4 /HPF (0-4)
[2021-04-12] MEDS: sodium bicarbonate (8.4%) inj. 50 MEQ in sodium chloride 0.45% 1,000 ML IV SCH ×2 (12:45→22:15)
[2021-04-12] MEDS ORDERED: normal saline 1000ml 1,000 ML IVB ONE ×2 (13:00→13:55)
[2021-04-12] MEDS: albumin (human) 25% 100 ML IV solution IV SCH ×2 (14:28→20:09)
[2021-04-12] MEDS ORDERED: enoxaparin 40mg/0.4ml syringe SUBCUT SCH (20:00)
[2021-04-13] VITALS (24 sets, daily range): BP systolic 90–122; BP diastolic 52–69
[2021-04-13] MEDS: sodium bicarbonate (8.4%) inj. 50 MEQ in sodium chloride 0.45% 1,000 ML IV SCH ×2 (00:13→10:56)
[2021-04-13] MEDS: piperacillin/tazo 3.375gm/50ml 50 ML IV SCH ×4 (00:13→23:13)
[2021-04-13] MEDS: vancomycin/NS 1 GM ADD-VANTAGE 250 ML IV SCH (00:13)
[2021-04-13] MEDS: mineral oil/petrolatum ophthal oint EACHEYE SCH ×4 (02:44→19:08)
[2021-04-13] MEDS: albumin (human) 25% 100 ML IV solution IV SCH ×2 (02:45→08:14)
[2021-04-13 03:24] LABS: TOTAL IRON BINDING CAPACITY 105 UG/DL (259-388)
[2021-04-13 03:26] LABS: BASOPHILS % (AUTO) 0 % (0-1); EOSINOPHILS % (AUTO) 0.2 % (0-6); HEMATOCRIT 25.7 % (35.0-45.0); LYMPHOCYTES # (AUTO) 0.8 X10'3 (1.1-4.8); LYMPHOCYTES % (AUTO) 9.5 % (21-51); MEAN CORPUSCULAR HEMOGLOBIN 23.5 PG (27.0-31.0); MEAN CORPUSCULAR HGB CONC 31.3 g/dL (33.0-36.5); MEAN PLATELET VOLUME 7.9 FL (7.4-10.4); MONOCYTES # (AUTO) 0.3 X10'3 (0-0.9); MONOCYTES % (AUTO) 3.3 % (2-12); NEUTROPHILS # (AUTO) 7.6 X10'3 (1.8-7.7); PLATELET COUNT 190 X10'3 (140-440); RED BLOOD COUNT 3.42 X10'6 (4.20-5.60); RED CELL DISTRIBUTION WIDTH 20.6 % (11.5-14.5); WHITE BLOOD COUNT 8.8 X10'3 (4.5-11.0)
[2021-04-13 03:28] LABS: ALANINE AMINOTRANSFERASE 32 U/L (12-78); ALBUMIN 2.2 G/DL (3.4-5.0); ALBUMIN/GLOBULIN RATIO 0.9 (1.1-1.5); ALKALINE PHOSPHATASE 99 IU/L (46-116); ANION GAP 13 (8-16); ASPARTATE AMINO TRANSFERASE 76 U/L (10-37); BLOOD UREA NITROGEN 28 MG/DL (7-18); BUN/CREATININE RATIO 11.5 (6.6-38.0); CALCIUM 6.1 MG/DL (8.5-10.1); CHLORIDE 111 MMOL/L (99-107); CREATININE 2.44 MG/DL (0.40-0.90); GLUCOSE 101 MG/DL (70-104); MAGNESIUM 1.9 MG/DL (1.5-2.4); POTASSIUM 5.1 MMOL/L (3.5-5.1); SODIUM 141 MMOL/L (135-145); TOTAL CARBON DIOXIDE 17.3 MMOL/L (24-32); TOTAL PROTEIN 4.6 G/DL (6.4-8.2); eGFR 21 ML/MIN
[2021-04-13 03:58] LABS: % IRON SATURATION 2 % (11-46); IRON 2 UG/DL (49-151)
[2021-04-13 05:23] LABS: ABG BASE EXCESS -8.9 mmol/L (-2.0-2.0); ABG HCO3 15.6 mmol/L (22.0-26.0); ABG OXYGEN SATURATION 97.3 % (94-97); ABG PCO2 (T) 28.7 mmHg (32.0-45.0); ABG PO2 (T) 100.3 mmHg (75.0-100.0); FCOHb 0.5 % (0.0-3.9); FMetHb 0.3 % (0.0-1.5); FO2Hb 96.5 % (94-97); PATIENT TEMPERATURE 37.1; PEEP 5 cm H2O; RESPIRATORY RATE 25 b/min; TIDAL VOLUME 400 mL; TOTAL HEMOGLOBIN 8.4 G/dl (12.0-16.0)
[2021-04-13] MEDS: FENTANYL-0.9 % NACL/PF 100 ML IV PRN ×2 (05:44→15:48)
--- NOTE | 2021-04-13 06:30 | NUR ---
Patient in room ICU 2046. I have received report from JESSICA Bryant and had the opportunity to ask questions and assume patient care.
--- NOTE | 2021-04-13 06:34 | NUR ---
Problems reprioritized. Patient report given, questions answered & plan of care reviewed with JACQUI LOPEZ.
[2021-04-13] MEDS: docusate sod 100mg capsule PO SCH ×2 (08:00→18:58)
[2021-04-13] MEDS: famotidine/PF 10 mg/ml inj IV SCH ×2 (08:13→19:08)
[2021-04-13] MEDS: heparin, porcine 5000 units/ml vial SQ SCH ×2 (08:15→19:09)
[2021-04-13] MEDS: K and/or MAG REPLACEMENT MC SCH ×2 (08:35→18:32)
[2021-04-13] MEDS: NORepinephrine 8mg/ 250ml NS 250 ML IV PRN (12:16)
[2021-04-13] MEDS: propofol 1000mg/100ml bottle 100 ML IV SCH (12:18)
[2021-04-13] MEDS ORDERED: VANCOMYCIN LEVEL IV ONE (12:30)
[2021-04-13] MEDS: vasopressin inj. 40 UNIT in normal saline 50ml IV soln 38 ML IV SCH (14:05)
[2021-04-13] MEDS ORDERED: Neutra Phos packet PO PRN (14:55)
[2021-04-13] MEDS ORDERED: sodium phosphate inj. 15 MMOL in dextrose 5%-water 250 ML IV PRN (14:55)
[2021-04-13] MEDS ORDERED: potassium Cl 40MEQ/250ML bag 270 ML IV PRN ×2 (14:55)
[2021-04-13] MEDS ORDERED: sodium phosphate inj. 30 MMOL in dextrose 5%-water 250 ML IV PRN (14:55)
[2021-04-13] MEDS ORDERED: magnesium Cl slow-release 64mg tablet PO PRN (14:55)
[2021-04-13] MEDS ORDERED: magnesium 2GM in 50ml NS 50 ML IV PRN (14:55)
[2021-04-13] MEDS ORDERED: magnesium 4gm in 100ml NS 100 ML IV PRN (14:55)
[2021-04-13] MEDS ORDERED: SODIUM BICARBONATE IV SCH (16:00)
[2021-04-13] MEDS ORDERED: DEXTROSE 5% IV SCH (16:00)
[2021-04-13] MEDS ORDERED: WATER IV SCH (16:00)
--- NOTE | 2021-04-13 18:24 | NUR ---
Problems reprioritized. Patient report given, questions answered & plan of care reviewed with JESSICA Snyder.
--- NOTE | 2021-04-13 18:30 | NUR ---
Patient in room ICU 2046. I have received report from JESSICA Rios and had the opportunity to ask questions and assume patient care.
[2021-04-14] VITALS (24 sets, daily range): BP systolic 101–145; BP diastolic 58–89
[2021-04-14] MEDS ORDERED: vancomycin/NS 1 GM ADD-VANTAGE 250 ML IV SCH (01:00)
[2021-04-14] MEDS: mineral oil/petrolatum ophthal oint EACHEYE SCH ×4 (02:18→19:51)
[2021-04-14] MEDS: FENTANYL-0.9 % NACL/PF 100 ML IV PRN (02:38)
[2021-04-14 03:37] LABS: ABG BASE EXCESS -5.8 mmol/L (-2.0-2.0); ABG HCO3 18.5 mmol/L (22.0-26.0); ABG OXYGEN SATURATION 95.6 % (94-97); ABG PCO2 (T) 32.5 mmHg (32.0-45.0); ABG PO2 (T) 90.4 mmHg (75.0-100.0); FCOHb 0.9 % (0.0-3.9); FMetHb 0.2 % (0.0-1.5); FO2Hb 94.5 % (94-97); PATIENT TEMPERATURE 38.1; PEEP 5 cm H2O; RESPIRATORY RATE 25 b/min; TIDAL VOLUME 400 mL; TOTAL HEMOGLOBIN 7.8 G/dl (12.0-16.0)
[2021-04-14] MEDS: vasopressin inj. 40 UNIT in normal saline 50ml IV soln 38 ML IV SCH (03:39)
[2021-04-14 03:46] LABS: EOSINOPHILS # (AUTO) 0.1 X10'3 (0-0.9); RED BLOOD COUNT 3.05 X10'6 (4.20-5.60)
[2021-04-14 03:48] LABS: BASOPHILS % (AUTO) 0 % (0-1); EOSINOPHILS % (AUTO) 1.8 % (0-6); HEMATOCRIT 22.7 % (35.0-45.0); HEMOGLOBIN 7.1 g/dl (12.0-16.0); LYMPHOCYTES # (AUTO) 0.6 X10'3 (1.1-4.8); LYMPHOCYTES % (AUTO) 10.4 % (21-51); MEAN CORPUSCULAR HEMOGLOBIN 23.4 PG (27.0-31.0); MEAN CORPUSCULAR HGB CONC 31.4 g/dL (33.0-36.5); MEAN CORPUSCULAR VOLUME 74.4 FL (78-98); MEAN PLATELET VOLUME 8.2 FL (7.4-10.4); MONOCYTES # (AUTO) 0.1 X10'3 (0-0.9); MONOCYTES % (AUTO) 2.1 % (2-12); NEUTROPHILS # (AUTO) 5.3 X10'3 (1.8-7.7); NEUTROPHILS % (AUTO) 85.7 % (42-75); PLATELET COUNT 114 X10'3 (140-440); RED CELL DISTRIBUTION WIDTH 20.6 % (11.5-14.5); WHITE BLOOD COUNT 6.1 X10'3 (4.5-11.0)
[2021-04-14 04:04] LABS: ALANINE AMINOTRANSFERASE 27 U/L (12-78); ALBUMIN 2.3 G/DL (3.4-5.0); ALBUMIN/GLOBULIN RATIO 0.9 (1.1-1.5); ALKALINE PHOSPHATASE 97 IU/L (46-116); ANION GAP 11 (8-16); ASPARTATE AMINO TRANSFERASE 59 U/L (10-37); BILIRUBIN,TOTAL 0.9 MG/DL (0.1-1.0); BLOOD UREA NITROGEN 24 MG/DL (7-18); BUN/CREATININE RATIO 14.5 (6.6-38.0); CALCIUM 6.8 MG/DL (8.5-10.1); CHLORIDE 112 MMOL/L (99-107); CREATININE 1.66 MG/DL (0.40-0.90); GLUCOSE 84 MG/DL (70-104); MAGNESIUM 2.1 MG/DL (1.5-2.4); PHOSPHORUS 2.6 MG/DL (2.3-4.5); POTASSIUM 3.7 MMOL/L (3.5-5.1); SODIUM 144 MMOL/L (135-145); TOTAL CARBON DIOXIDE 21.2 MMOL/L (24-32); eGFR 33 ML/MIN
[2021-04-14 04:33] LABS: TOTAL CELLS COUNTED 100
[2021-04-14 04:34] LABS: PLATELET ESTIMATE DECREASED
[2021-04-14 04:37] LABS: ANISOCYTOSIS 3+; MICROCYTOSIS 1+; TOXIC VACUOLATION 1+
[2021-04-14] MEDS: propofol 1000mg/100ml bottle 100 ML IV SCH (05:55)
--- NOTE | 2021-04-14 06:09 | NUR ---
Problems reprioritized. Patient report given, questions answered & plan of care reviewed with JESSICA Rios.
[2021-04-14] MEDS: K and/or MAG REPLACEMENT MC SCH ×2 (08:00→19:52)
[2021-04-14] MEDS: docusate sod 100mg capsule PO SCH ×2 (08:00→19:52)
[2021-04-14] MEDS: famotidine/PF 10 mg/ml inj IV SCH ×2 (08:24→19:23)
[2021-04-14] MEDS: piperacillin/tazo 3.375gm/50ml 50 ML IV SCH ×2 (08:24→18:23)
[2021-04-14] MEDS: heparin, porcine 5000 units/ml vial SQ SCH ×2 (08:25→19:24)
--- NOTE | 2021-04-14 11:45 | NUR ---
Initial: Pt admitted w/ abd pain, found to have SBO and perforation per EMR, underwent sigmoid colectomy and colostomy formation 04/11. Pt w/ sepsis per MD note. Pt has been intubated since 04/11 and sedated w/ Propofol currently at 2.978ml/hr providing 78kcals/d. Pt also receiving NaBicarb/D5 at 50ml/hr providing 204kcals/d. Pt may go back to OR today per RN. Sap Abap Developer states that pt might be extubated soon if Pt does not go to OR. Pt currently day 5 NPO, see recs below if pt requires TF. Will continue to monitor. Rec: 1. IF extubated, advance to Regular diet as medically indicated 2. IF remains intubated, continuous TF using Vital HP at 67ml/hr 4. IF TF, PALB Q / 3. Bowel care per rx 4. Weekly wts Addendum: 04/14/21 at [address] Amended: Links added.
[2021-04-14] MEDS: SODIUM BICARBONATE IV SCH ×2 (12:07→19:00)
[2021-04-14] MEDS: DEXTROSE 5% IV SCH ×2 (12:07→19:00)
[2021-04-14] MEDS: fluconazole-Diflucan 200mg/NS 100 ML IV SCH (12:07)
[2021-04-14] MEDS: WATER IV SCH ×2 (12:07→19:00)
[2021-04-14 13:50] LABS: ISTAT K 4.8 mmol/L (3.5-5.1)
[2021-04-14 13:51] LABS: ISTAT CREATININE 0.8 mg/dL (0.6-1.1); ISTAT HGB 13.6 g/dl (12.0-16.0); ISTAT IONIZED CALCIUM 0.96 mmol/L (1.03-1.32); POC BUN/CREATININE RATIO 16.3 (6.6-38.0)
--- NOTE | 2021-04-14 14:50 | NUR ---
Dr Campoverde rounded on pt. He said that pt would not be going back to OR for wound vac placement and that wound vac would be placed by WOC RN. Message left with inpatient wound care.
--- NOTE | 2021-04-14 15:41 | NUR ---
Dr Bolden called. Pt has been tolerating CPAP mode all day. Reported that Dr Campoverde is okay with extubating pt. Received orders to obtain another set of weening parameters.
--- NOTE | 2021-04-14 16:35 | NUR ---
Respiratory therapy delayed d/t emergencies in hospital
--- NOTE | 2021-04-14 18:21 | NUR ---
Problems reprioritized. Patient report given, questions answered & plan of care reviewed with JESSICA Snyder.
--- NOTE | 2021-04-14 18:30 | NUR ---
Patient in room ICU 2046. I have received report from Gabriel LOPEZ and had the opportunity to ask questions and assume patient care.
[2021-04-14 21:12] LABS: MEAN CORPUSCULAR HEMOGLOBIN 23.7 PG (27.0-31.0)
[2021-04-14 21:14] LABS: BASOPHILS % (AUTO) 0.1 % (0-1); EOSINOPHILS % (AUTO) 0.4 % (0-6); HEMATOCRIT 23.4 % (35.0-45.0); HEMOGLOBIN 7.4 g/dl (12.0-16.0); LYMPHOCYTES # (AUTO) 0.9 X10'3 (1.1-4.8); LYMPHOCYTES % (AUTO) 10.4 % (21-51); MEAN CORPUSCULAR HGB CONC 31.8 g/dL (33.0-36.5); MEAN CORPUSCULAR VOLUME 74.5 FL (78-98); MEAN PLATELET VOLUME 7.9 FL (7.4-10.4); MONOCYTES # (AUTO) 0.3 X10'3 (0-0.9); MONOCYTES % (AUTO) 3.5 % (2-12); NEUTROPHILS # (AUTO) 7.7 X10'3 (1.8-7.7); NEUTROPHILS % (AUTO) 85.6 % (42-75); PLATELET COUNT 99 X10'3 (140-440); RED BLOOD COUNT 3.14 X10'6 (4.20-5.60)
[2021-04-15] VITALS (24 sets, daily range): BP systolic 118–168; BP diastolic 78–108
[2021-04-15] MEDS ORDERED: metoprolol tartrate 1mg/ml inj IV ONE ×3 (00:45→14:35)
[2021-04-15] MEDS: mineral oil/petrolatum ophthal oint EACHEYE SCH ×5 (01:01→20:44)
[2021-04-15 03:12] LABS: BASOPHILS % (AUTO) 0.1 % (0-1); EOSINOPHILS % (AUTO) 0.3 % (0-6); HEMATOCRIT 22.8 % (35.0-45.0); HEMOGLOBIN 7.4 g/dl (12.0-16.0); LYMPHOCYTES # (AUTO) 1.1 X10'3 (1.1-4.8); LYMPHOCYTES % (AUTO) 12.4 % (21-51); MEAN CORPUSCULAR HEMOGLOBIN 23.7 PG (27.0-31.0); MEAN CORPUSCULAR HGB CONC 32.2 g/dL (33.0-36.5); MEAN CORPUSCULAR VOLUME 73.5 FL (78-98); MEAN PLATELET VOLUME 7.7 FL (7.4-10.4); MONOCYTES # (AUTO) 0.4 X10'3 (0-0.9); MONOCYTES % (AUTO) 4.8 % (2-12); NEUTROPHILS # (AUTO) 7.3 X10'3 (1.8-7.7); NEUTROPHILS % (AUTO) 82.4 % (42-75); PLATELET COUNT 94 X10'3 (140-440); RED BLOOD COUNT 3.11 X10'6 (4.20-5.60); RED CELL DISTRIBUTION WIDTH 21.2 % (11.5-14.5); WHITE BLOOD COUNT 8.8 X10'3 (4.5-11.0)
[2021-04-15 03:26] LABS: ALANINE AMINOTRANSFERASE 30 U/L (12-78); ALBUMIN/GLOBULIN RATIO 0.6 (1.1-1.5); ALKALINE PHOSPHATASE 131 IU/L (46-116); ANION GAP 10 (8-16); ASPARTATE AMINO TRANSFERASE 67 U/L (10-37); BILIRUBIN,TOTAL 0.9 MG/DL (0.1-1.0); BLOOD UREA NITROGEN 21 MG/DL (7-18); BUN/CREATININE RATIO 16.9 (6.6-38.0); CALCIUM 7.5 MG/DL (8.5-10.1); CHLORIDE 112 MMOL/L (99-107); CREATININE 1.24 MG/DL (0.40-0.90); GLUCOSE 113 MG/DL (70-104); MAGNESIUM 2.5 MG/DL (1.5-2.4); PHOSPHORUS 3.4 MG/DL (2.3-4.5); POTASSIUM 3.7 MMOL/L (3.5-5.1); SODIUM 145 MMOL/L (135-145); TOTAL CARBON DIOXIDE 22.6 MMOL/L (24-32); TOTAL PROTEIN 5.5 G/DL (6.4-8.2); eGFR 47 ML/MIN
[2021-04-15 04:02] LABS: ANISOCYTOSIS 3+; PLATELET ESTIMATE DECREASED; TOTAL CELLS COUNTED 100
[2021-04-15 04:03] LABS: MICROCYTOSIS 1+
[2021-04-15] MEDS ORDERED: adenosine 3mg/ml 2ml vial IV ONE ×2 (04:57→05:00)
--- NOTE | 2021-04-15 06:15 | NUR ---
Problems reprioritized. Patient report given to Gabriel RN, questions answered & plan of care reviewed with .
[2021-04-15] MEDS ORDERED: metoprolol succinate 25mg (24-HOUR) SR. Tablet PO SCH (08:00)
[2021-04-15] MEDS ORDERED: metoprolol tartrate 25mg tablet PO SCH (08:00)
[2021-04-15] MEDS: docusate sod 100mg capsule PO SCH ×2 (08:00→20:00)
[2021-04-15] MEDS: K and/or MAG REPLACEMENT MC SCH ×2 (08:00→20:00)
[2021-04-15] MEDS: fluconazole-Diflucan 200mg/NS 100 ML IV SCH (08:14)
[2021-04-15] MEDS: famotidine/PF 10 mg/ml inj IV SCH ×2 (08:14→20:06)
--- NOTE | 2021-04-15 08:39 | NUR ---
Called Dr Mccollum and reported pt's tachypnea with accessory muscle usage, delerium, lab abnormalities, diaphoresis, and lack of output from stoma. He requested pt be seen by commercial real estate agent.
[2021-04-15 09:04] LABS: ABG BASE EXCESS -2.8 mmol/L (-2.0-2.0); ABG HCO3 22.1 mmol/L (22.0-26.0); ABG OXYGEN SATURATION 97.2 % (94-97); ABG PCO2 (T) 38.9 mmHg (32.0-45.0); ABG PO2 (T) 98.8 mmHg (75.0-100.0); ALLEN'S TEST POSITIVE; FLOW 4 L/min; FMetHb 0.1 % (0.0-1.5); FO2Hb 96.1 % (94-97); PATIENT TEMPERATURE 36.9; TOTAL HEMOGLOBIN 8.3 G/dl (12.0-16.0)
[2021-04-15] MEDS ORDERED: normal saline 1000ml 1,000 ML IV ONE (09:30)
[2021-04-15] MEDS ORDERED: furosemide 40mg/4ml inj IV ONE (10:05)
[2021-04-15] MEDS: heparin, porcine 5000 units/ml vial SQ SCH ×2 (10:44→20:06)
[2021-04-15] MEDS: acetaminophen w/codeine (30MG) #3 tablet PO PRN ×3 (11:38→20:17)
--- NOTE | 2021-04-15 11:51 | NUR ---
F/u 04/15: Pt on day 6 of NPO. Per Hydramatic Mechanic, no TPN at this time and awaiting Surgeon consult for feeding plan. Will continue to monitor. Addendum: 04/15/21 at [address] Amended: Links added.
[2021-04-15] MEDS ORDERED: furosemide 20 MG/2 ML vial IV ONE (14:35)
--- NOTE | 2021-04-15 18:20 | NUR ---
Problems reprioritized. Patient report given, questions answered & plan of care reviewed with JESSICA Snyder.
--- NOTE | 2021-04-15 18:30 | NUR ---
Patient in room ICU 2046. I have received report from Gabriel LOPEZ and had the opportunity to ask questions and assume patient care.
[2021-04-15] MEDS: metoprolol tartrate 50mg tablet PO SCH (20:07)
[2021-04-15] MEDS: WATER IV SCH (20:45)
[2021-04-15] MEDS: SODIUM BICARBONATE IV SCH (20:45)
[2021-04-15] MEDS: DEXTROSE 5% IV SCH (20:45)
--- NOTE | 2021-04-15 22:00 | NUR ---
Problems reprioritized. Patient report given, questions answered & plan of care reviewed with JESSICA Gibbs.
--- NOTE | 2021-04-15 22:09 | NUR ---
Patient in room ICU 2046. I have received report from Meenu LOPEZ and had the opportunity to ask questions and assume patient care. Patient breathing easy and unlabored without distress.
[2021-04-16] VITALS (24 sets, daily range): BP systolic 125–186; BP diastolic 83–116
[2021-04-16 00:27] LABS: ABG BASE EXCESS 0.4 mmol/L (-2.0-2.0); ABG OXYGEN SATURATION 97.7 % (94-97); ABG PCO2 (T) 48.9 mmHg (32.0-45.0); ABG PO2 (T) 116.5 mmHg (75.0-100.0); FCOHb 0.9 % (0.0-3.9); FMetHb 0.2 % (0.0-1.5); FO2Hb 96.6 % (94-97); TOTAL HEMOGLOBIN 8.6 G/dl (12.0-16.0)
[2021-04-16] MEDS ORDERED: VANCOMYCIN LEVEL IV ONE (00:30)
[2021-04-16] MEDS: naloxone 0.4 mg/ml inj IV PRN ×3 (00:47→01:15)
[2021-04-16] MEDS ORDERED: LORazepam 2 mg/ml vial ONE (01:17)
[2021-04-16] MEDS: niCARDipine-NS 40mg/200ml IVPB 200 ML IV SCH ×4 (03:12→20:06)
[2021-04-16] MEDS ORDERED: MIDAZolam 1 MG/ML 5ML VIAL IV ONE (04:40)
[2021-04-16] MEDS ORDERED: MIDAZolam 5mg/ml 2ml vial IV ONE (04:40)
[2021-04-16] MEDS ORDERED: furosemide 40mg/4ml inj IV SCH (05:20)
[2021-04-16 06:11] LABS: HEMATOCRIT 23.7 % (35.0-45.0); MEAN CORPUSCULAR HEMOGLOBIN 23.6 PG (27.0-31.0); MEAN CORPUSCULAR HGB CONC 31.9 g/dL (33.0-36.5); MEAN CORPUSCULAR VOLUME 74.1 FL (78-98)
[2021-04-16 06:13] LABS: HEMOGLOBIN 7.6 g/dl (12.0-16.0); MEAN PLATELET VOLUME 8.2 FL (7.4-10.4); PLATELET COUNT 101 X10'3 (140-440); RED CELL DISTRIBUTION WIDTH 20.7 % (11.5-14.5); WHITE BLOOD COUNT 7.2 X10'3 (4.5-11.0)
[2021-04-16 06:17] LABS: ALANINE AMINOTRANSFERASE 33 U/L (12-78); ALBUMIN 2.1 G/DL (3.4-5.0); ALBUMIN/GLOBULIN RATIO 0.5 (1.1-1.5); ALKALINE PHOSPHATASE 134 IU/L (46-116); ANION GAP 8 (8-16); ASPARTATE AMINO TRANSFERASE 60 U/L (10-37); BILIRUBIN,TOTAL 0.6 MG/DL (0.1-1.0); BLOOD UREA NITROGEN 25 MG/DL (7-18); BUN/CREATININE RATIO 20.7 (6.6-38.0); CHLORIDE 112 MMOL/L (99-107); CREATININE 1.21 MG/DL (0.40-0.90); GLUCOSE 122 MG/DL (70-104); POTASSIUM 3.3 MMOL/L (3.5-5.1); SODIUM 148 MMOL/L (135-145); TOTAL CARBON DIOXIDE 27.9 MMOL/L (24-32); eGFR 48 ML/MIN
[2021-04-16 07:16] LABS: TOTAL CELLS COUNTED 100
[2021-04-16 07:17] LABS: ANISOCYTOSIS 3+; ELLIPTOCYTES FEW; MICROCYTOSIS 1+; PLATELET ESTIMATE DECREASED
[2021-04-16 07:18] LABS: TARGET CELLS FEW
[2021-04-16] MEDS: K and/or MAG REPLACEMENT MC SCH ×2 (08:00→20:00)
[2021-04-16] MEDS: metoprolol tartrate 50mg tablet PO SCH ×2 (08:26→19:16)
[2021-04-16] MEDS: docusate sod 100mg capsule PO SCH ×3 (08:26→19:35)
[2021-04-16] MEDS: fluconazole-Diflucan 200mg/NS 100 ML IV SCH (08:26)
[2021-04-16] MEDS: famotidine/PF 10 mg/ml inj IV SCH ×2 (08:26→19:16)
[2021-04-16] MEDS: mineral oil/petrolatum ophthal oint EACHEYE SCH ×3 (08:27→19:36)
[2021-04-16] MEDS: heparin, porcine 5000 units/ml vial SQ SCH ×2 (08:28→19:16)
[2021-04-16] MEDS ORDERED: LORazepam 2 mg/ml vial IV PRN (10:50)
[2021-04-16] MEDS: losartan 50mg tablet PO SCH (11:19)
--- NOTE | 2021-04-16 11:49 | NUR ---
F/u 04/16: Pt [address] d/w advisory application developer and surgeon present during rounds. Pt currently on full face bipap 11.3L/min is able to take PO meds w/ 100% clear liquids this AM per EMR. Pt to remain on PO diet w/ functional colostomy though IF any signs of PO intolerance will receive NG for nutrition per MD. MD requests ensure clears TIDWM in meantime; recommendations entered into EMR pending MD verification. Given 8 days no nutrition and general +1 edema pt meets minimum non-severe malnutrition criteria; MD notified. Rec: 1. advance to Regular diet as medically indicated 2. ensure clears TIDWM while on clears per MD; pending verification in EMR 3. IF PO intolerance on full face bipap post-op, continuous TF using Vital High Protein at 67ml/hr 4. IF TF, PALB Q / 5. Bowel care per rx 6. Weekly wts Addendum: 04/16/21 at [address] Amended: Links added.
--- NOTE | 2021-04-16 11:50 | NUR ---
F/u 04/16: Pt [address] d/w medic technician and surgeon present during rounds. Pt currently on full face bipap 11.3L/min is able to take PO meds w/ 100% clear liquids this AM per EMR. Pt to remain on PO diet w/ functional colostomy though IF any signs of PO intolerance will receive NG for nutrition per MD. MD requests ensure clears TIDWM in meantime; recommendations entered into EMR pending MD verification. Given 8 days no nutrition and general +1 edema pt meets minimum non-severe malnutrition criteria; MD notified. Rec: 1. advance to Regular diet as medically indicated 2. ensure clears TIDWM while on clears per MD; pending verification in EMR 3. IF PO intolerance on full face bipap post-op, continuous TF using Vital High Protein at 67ml/hr 4. IF TF, PALB Q / 5. Bowel care per rx 6. Weekly wts Addendum: 04/16/21 at [address] Amended: Links added.
[2021-04-16] MEDS: NUT.TX.IMPAIRED DIGEST FXN (Ensure Clear) 237 ML PO SCH ×2 (13:00→18:00)
--- NOTE | 2021-04-16 15:09 | NUR ---
0800 - Pt AAOx4, cooperative with redirection, sitter at bedside ; placed on HFNC 40L @100% to complete assessment, modified Oliver and administer PO meds. 0900 - Pt tolerated well, maintained O2 saturation above 90% for duration, consumed 50% of meal 1000 - BiPap weaned up to 15/10 @40% 1030 - Team rounded, new orders: WoundVac consult ordered ; Verified Clonidine patch in place on Left shoulder ; Losartan started ; Cardene weaned down from 15 mg ; Pt responding well to Lasix - 2,700 ml out ; Dietary request for Ensure faxed
[2021-04-16] MEDS ORDERED: HYDROcodone/acetaminophen 5mg/325mg tablet PO PRN ×2 (15:55)
[2021-04-16 16:10] LABS: ALBUMIN 2.1 G/DL (3.4-5.0); ANION GAP 11 (8-16); BLOOD UREA NITROGEN 27 MG/DL (7-18); BUN/CREATININE RATIO 25.7 (6.6-38.0); CALCIUM 8.2 MG/DL (8.5-10.1); CHLORIDE 113 MMOL/L (99-107); CREATININE 1.05 MG/DL (0.40-0.90); GLUCOSE 122 MG/DL (70-104); MAGNESIUM 2.3 MG/DL (1.5-2.4); SODIUM 153 MMOL/L (135-145); TOTAL CARBON DIOXIDE 28.7 MMOL/L (24-32); eGFR 57 ML/MIN
[2021-04-16 16:12] LABS: POTASSIUM 2.9 MMOL/L (3.5-5.1)
[2021-04-16] MEDS ORDERED: sodium phosphate inj. 30 MMOL in dextrose 5%-water 250 ML IV PRN (16:15)
[2021-04-16] MEDS ORDERED: sodium phosphate inj. 15 MMOL in dextrose 5%-water 250 ML IV PRN (16:15)
[2021-04-16] MEDS ORDERED: Neutra Phos packet PO PRN (16:15)
[2021-04-16] MEDS: potassium Cl 20 mEq SR tablet PO PRN ×2 (16:46→19:27)
[2021-04-16] MEDS: furosemide 40mg/4ml inj IV SCH (19:15)
[2021-04-17] VITALS (17 sets, daily range): BP systolic 111–139; BP diastolic 70–92
[2021-04-17] MEDS: mineral oil/petrolatum ophthal oint EACHEYE SCH ×2 (02:00→08:00)
[2021-04-17] MEDS: potassium Cl 20 mEq SR tablet PO PRN (03:49)
[2021-04-17] MEDS: acetaminophen w/codeine (30MG) #3 tablet PO PRN (05:55)
[2021-04-17 06:03] LABS: BASOPHILS % (AUTO) 0.1 % (0-1); EOSINOPHILS # (AUTO) 0.1 X10'3 (0-0.9); EOSINOPHILS % (AUTO) 1.4 % (0-6); HEMATOCRIT 25.7 % (35.0-45.0); HEMOGLOBIN 8.2 g/dl (12.0-16.0); LYMPHOCYTES # (AUTO) 0.9 X10'3 (1.1-4.8); LYMPHOCYTES % (AUTO) 14.3 % (21-51); MEAN CORPUSCULAR HEMOGLOBIN 23.7 PG (27.0-31.0); MEAN CORPUSCULAR VOLUME 73.8 FL (78-98); MEAN PLATELET VOLUME 8.3 FL (7.4-10.4); MONOCYTES # (AUTO) 1.4 X10'3 (0-0.9); NEUTROPHILS # (AUTO) 3.8 X10'3 (1.8-7.7); NEUTROPHILS % (AUTO) 61.2 % (42-75); PLATELET COUNT 127 X10'3 (140-440); RED BLOOD COUNT 3.48 X10'6 (4.20-5.60); RED CELL DISTRIBUTION WIDTH 19.9 % (11.5-14.5); WHITE BLOOD COUNT 6.2 X10'3 (4.5-11.0)
[2021-04-17 06:22] LABS: ALANINE AMINOTRANSFERASE 30 U/L (12-78); ALBUMIN/GLOBULIN RATIO 0.4 (1.1-1.5); ALKALINE PHOSPHATASE 127 IU/L (46-116); ANION GAP 8 (8-16); ASPARTATE AMINO TRANSFERASE 55 U/L (10-37); BILIRUBIN,TOTAL 0.5 MG/DL (0.1-1.0); BLOOD UREA NITROGEN 32 MG/DL (7-18); BUN/CREATININE RATIO 24.6 (6.6-38.0); CALCIUM 8.3 MG/DL (8.5-10.1); CHLORIDE 113 MMOL/L (99-107); GLUCOSE 178 MG/DL (70-104); POTASSIUM 3.7 MMOL/L (3.5-5.1); SODIUM 150 MMOL/L (135-145); TOTAL CARBON DIOXIDE 28.8 MMOL/L (24-32); TOTAL PROTEIN 6.5 G/DL (6.4-8.2); eGFR 44 ML/MIN
[2021-04-17 07:33] LABS: ANISOCYTOSIS 2+; MICROCYTOSIS 1+; PLATELET ESTIMATE DECREASED; TOTAL CELLS COUNTED 100
[2021-04-17] MEDS ORDERED: furosemide 40mg/4ml inj IV SCH (08:00)
[2021-04-17] MEDS: K and/or MAG REPLACEMENT MC SCH ×2 (08:00→19:03)
[2021-04-17] MEDS: docusate sod 100mg capsule PO SCH ×3 (08:37→19:03)
[2021-04-17] MEDS: heparin, porcine 5000 units/ml vial SQ SCH ×2 (08:37→19:12)
[2021-04-17] MEDS: furosemide 40mg/4ml inj IV SCH ×2 (08:37→19:04)
[2021-04-17] MEDS: fluconazole-Diflucan 200mg/NS 100 ML IV SCH (08:37)
[2021-04-17] MEDS: famotidine/PF 10 mg/ml inj IV SCH ×2 (08:38→19:04)
[2021-04-17] MEDS: metoprolol tartrate 50mg tablet PO SCH ×2 (08:38→19:05)
[2021-04-17] MEDS: losartan 50mg tablet PO SCH (08:38)
[2021-04-17] MEDS: NUT.TX.IMPAIRED DIGEST FXN (Ensure Clear) 237 ML PO SCH (08:38)
[2021-04-17] MEDS: niCARDipine-NS 40mg/200ml IVPB 200 ML IV SCH (10:36)
[2021-04-17] MEDS: piperacillin/tazo 4.5gm/100ml 100 ML IV SCH (14:56)
[2021-04-17] MEDS ORDERED: piperacillin/tazo 4.5gm/100ml 100 ML IV SCH (16:00)
[2021-04-17] MEDS: acetaminophen 325mg tablet PO PRN (16:07)
[2021-04-18] VITALS (19 sets, daily range): BP systolic 101–133; BP diastolic 67–86
[2021-04-18] MEDS: acetaminophen 325mg tablet PO PRN ×3 (05:59→19:45)
[2021-04-18 06:19] LABS: BASOPHILS % (AUTO) 0.1 % (0-1); EOSINOPHILS # (AUTO) 0.2 X10'3 (0-0.9); EOSINOPHILS % (AUTO) 2.2 % (0-6); HEMATOCRIT 22.4 % (35.0-45.0); HEMOGLOBIN 7.4 g/dl (12.0-16.0); LYMPHOCYTES # (AUTO) 1.2 X10'3 (1.1-4.8); LYMPHOCYTES % (AUTO) 13.3 % (21-51); MEAN CORPUSCULAR VOLUME 72.6 FL (78-98); MEAN PLATELET VOLUME 8.3 FL (7.4-10.4); MONOCYTES # (AUTO) 1.9 X10'3 (0-0.9); MONOCYTES % (AUTO) 20.6 % (2-12); NEUTROPHILS % (AUTO) 63.8 % (42-75); PLATELET COUNT 222 X10'3 (140-440); RED BLOOD COUNT 3.08 X10'6 (4.20-5.60); RED CELL DISTRIBUTION WIDTH 19.7 % (11.5-14.5); WHITE BLOOD COUNT 9.3 X10'3 (4.5-11.0)
[2021-04-18 07:33] LABS: NUCLEATED RED BLOOD CELLS 3 /100WBC (0-0); PLATELET ESTIMATE NORMAL; TOTAL CELLS COUNTED 100
[2021-04-18 07:34] LABS: ANISOCYTOSIS 2+; HYPOCHROMASIA 1+; LARGE PLATELETS FEW; MICROCYTOSIS 1+; POLYCHROMASIA 1+
[2021-04-18] MEDS: furosemide 40mg/4ml inj IV SCH (09:26)
[2021-04-18] MEDS: piperacillin/tazo 4.5gm/100ml 100 ML IV SCH ×2 (09:26→19:46)
[2021-04-18] MEDS: fluconazole-Diflucan 200mg/NS 100 ML IV SCH (09:26)
[2021-04-18] MEDS: famotidine/PF 10 mg/ml inj IV SCH (09:26)
[2021-04-18] MEDS: losartan 50mg tablet PO SCH (09:27)
[2021-04-18] MEDS: heparin, porcine 5000 units/ml vial SQ SCH ×2 (09:27→19:45)
[2021-04-18] MEDS: docusate sod 100mg capsule PO SCH ×2 (09:27→19:47)
[2021-04-18] MEDS: K and/or MAG REPLACEMENT MC SCH ×2 (09:27→19:47)
[2021-04-18] MEDS: metoprolol tartrate 50mg tablet PO SCH ×2 (09:28→19:44)
[2021-04-18 09:56] LABS: ALANINE AMINOTRANSFERASE 28 U/L (12-78); ALBUMIN 1.9 G/DL (3.4-5.0); ALBUMIN/GLOBULIN RATIO 0.4 (1.1-1.5); ALKALINE PHOSPHATASE 141 IU/L (46-116); ANION GAP 9 (8-16); ASPARTATE AMINO TRANSFERASE 45 U/L (10-37); BILIRUBIN,TOTAL 0.5 MG/DL (0.1-1.0); BLOOD UREA NITROGEN 28 MG/DL (7-18); BUN/CREATININE RATIO 23.5 (6.6-38.0); CALCIUM 7.8 MG/DL (8.5-10.1); CHLORIDE 104 MMOL/L (99-107); CREATININE 1.19 MG/DL (0.40-0.90); GLUCOSE 140 MG/DL (70-104); SODIUM 142 MMOL/L (135-145); TOTAL CARBON DIOXIDE 29.1 MMOL/L (24-32); TOTAL PROTEIN 6.4 G/DL (6.4-8.2); eGFR 49 ML/MIN
[2021-04-18] MEDS: potassium Cl 20 mEq SR tablet PO PRN ×4 (10:12→21:47)
--- NOTE | 2021-04-18 11:19 | NUR ---
DR RUVALCABA APPROVES PT CAN TRANSFER OUT TO PCU WITH TELE
--- NOTE | 2021-04-18 13:04 | NUR ---
F/u 04/18: Pt now on room air advanced to regular diet yesterday PO 25% avg first regular breakfast this AM. Pt/daughter seen by TRUNG for verbal high protein ed post-op. Pt is agreeable to vanilla ensure high protein BIDLD and strawberry Richard shake BIDBD; MD notified. Pt reports lower appetite currently not unexpected post-op likes "thinner" liquids and fruits/fruit juices. Small fruit cup and fruit juice TIDWM added w/ meals; dietary notified. Ensure High Protein ONS instead of Ensure Enlive since texture slightly thinner; pt is agreeable to try Ensure Enlive IF dislikes Ensure High Proteins. Colostomy -980ml output yesterday serum Na 142 this AM down from 150 yesterday w/ K 3.0 receiving electrolyte replacement per protocol. Will continue to monitor for PO trends and ONS acceptance post-op. Would benefit from colostomy diet ed once more appropriate prior to discharge. Rec: 1. advance to low-residue diet as medically indicated; fruit cup/fruit juice TIDWM per pt preferences; encourage PO 2. strawberry Richard shake BIDBD, vanilla ensure high protein BIDLD per pr preferences; encourage PO 3. IF dislikes ensure high protein; consider Ensure Enlive BIDLD given poor nutrition status this admit and pt already agreeable to try alternative ONS 4. Bowel care per rx 5. Weekly wts Addendum: 04/18/21 at [address] Amended: Links added.
[2021-04-18] MEDS: lactose-reduced food (Ensure High Protein) 237ml bottle PO SCH ×2 (13:13→17:30)
--- NOTE | 2021-04-18 16:46 | NUR ---
Patient in room ICU 2046. I have received report from Delroy LOPEZ and had the opportunity to ask questions in preparation to assume patient care.
[2021-04-18] MEDS: JUVEN Shake w/Arg/Glut/Ca2+Bmb (Juven 19.3gm) pkt 240ml PO SCH (17:30)
--- NOTE | 2021-04-18 17:30 | NUR ---
Pt arrived via ICU bed to telemetry unit room 3002. pt alert to voice, oriented, no sob, speech clear, moves all extremities. pt 3 person transferred to telemetry bed. pt tolerated well. safety measures place: BLL, CL within reach, SRx2. pt safety education completed. pt oriented to new room. pt needs anticipated and met. VS wnl. no s/sx acute distress.
--- NOTE | 2021-04-18 17:46 | NUR ---
Problems reprioritized. Patient report given, questions answered & plan of care reviewed with Alyson LOPEZ. Pt transferred in stable condition with belongings, chart, IV ABX's to 3009. [facility] informed pt had belongins down at security desk. Pt stated ahe had rings in a container in ICU unable to locate. Pt will check if family took them home.
--- NOTE | 2021-04-18 18:13 | NUR ---
Problems reprioritized. Patient report given, questions answered & plan of care reviewed with Jazz LOPEZ. Pt semi fowlers in the bed. colostomy in place without excessive air present. ABD incisional dressing in place, non soiled. breathing even. no s/sx acute distress.
[2021-04-18] MEDS: famotidine 20mg tablet PO SCH (19:45)
[2021-04-18] MEDS: lactobacillus rhamnosus 10,000 MMU CELLS/CAPSULE PO SCH (19:46)
[2021-04-19 02:00] VITALS: BP 123/77
[2021-04-19] MEDS: acetaminophen 325mg tablet PO PRN ×5 (02:24→21:48)
[2021-04-19 06:00] VITALS: BP 133/87
--- NOTE | 2021-04-19 06:16 | NUR ---
Problems reprioritized. Patient report given, questions answered & plan of care reviewed with JESSICA Miranda.
[2021-04-19] MEDS: JUVEN Shake w/Arg/Glut/Ca2+Bmb (Juven 19.3gm) pkt 240ml PO SCH ×2 (07:30→17:30)
[2021-04-19] MEDS: potassium Cl 20 mEq SR tablet PO PRN ×4 (07:37→17:57)
[2021-04-19] MEDS: heparin, porcine 5000 units/ml vial SQ SCH ×2 (07:39→20:32)
[2021-04-19] MEDS: docusate sod 100mg capsule PO SCH (07:39)
[2021-04-19] MEDS: famotidine 20mg tablet PO SCH (07:40)
[2021-04-19] MEDS: metoprolol tartrate 50mg tablet PO SCH ×2 (07:40→20:31)
[2021-04-19] MEDS: losartan 50mg tablet PO SCH (07:41)
[2021-04-19] MEDS: lactobacillus rhamnosus 10,000 MMU CELLS/CAPSULE PO SCH ×2 (07:41→20:30)
[2021-04-19] MEDS: fluconazole-Diflucan 200mg/NS 100 ML IV SCH (07:42)
[2021-04-19] MEDS: piperacillin/tazo 4.5gm/100ml 100 ML IV SCH ×2 (07:42→17:56)
[2021-04-19] MEDS ORDERED: furosemide 40mg tablet PO SCH (08:00)
[2021-04-19 11:00] VITALS: BP 144/83
[2021-04-19] MEDS: lactose-reduced food (Ensure High Protein) 237ml bottle PO SCH ×2 (13:01→17:30)
--- NOTE | 2021-04-19 13:13 | NUR ---
patient has an abdominal midline open surgical incision , dressing was done at 1200 wet 4x4 to 4x4 covered by abdominal pad secured by tape . surgical wound care BID
[2021-04-19 15:00] VITALS: BP 140/80
[2021-04-19 19:00] VITALS: BP 157/97
[2021-04-19] MEDS: K and/or MAG REPLACEMENT MC SCH (20:00)
[2021-04-20] MEDS: piperacillin/tazo 4.5gm/100ml 100 ML IV SCH ×3 (00:49→15:46)
[2021-04-20 02:00] VITALS: BP 143/95
[2021-04-20] MEDS: acetaminophen 325mg tablet PO PRN ×2 (02:56→07:41)
--- NOTE | 2021-04-20 06:31 | NUR ---
Patient in room PCU 3009. I have received report from Genesis LOPEZ and had the opportunity to ask questions and assume patient care.
[2021-04-20 07:00] VITALS: BP 147/92
[2021-04-20] MEDS: JUVEN Shake w/Arg/Glut/Ca2+Bmb (Juven 19.3gm) pkt 240ml PO SCH ×2 (07:30→19:30)
[2021-04-20] MEDS: lactobacillus rhamnosus 10,000 MMU CELLS/CAPSULE PO SCH ×2 (07:33→20:51)
[2021-04-20] MEDS: losartan 50mg tablet PO SCH (07:33)
[2021-04-20] MEDS: heparin, porcine 5000 units/ml vial SQ SCH ×2 (07:34→20:00)
[2021-04-20] MEDS: metoprolol tartrate 50mg tablet PO SCH ×2 (07:34→20:51)
[2021-04-20] MEDS ORDERED: fluconazole 100mg tablet PO SCH (08:00)
[2021-04-20] MEDS: K and/or MAG REPLACEMENT MC SCH ×2 (08:00→20:00)
[2021-04-20 10:47] LABS: BASOPHILS % (AUTO) 0.3 % (0-1); EOSINOPHILS # (AUTO) 0.2 X10'3 (0-0.9); EOSINOPHILS % (AUTO) 1.8 % (0-6); HEMATOCRIT 23.2 % (35.0-45.0); HEMOGLOBIN 7.5 g/dl (12.0-16.0); LYMPHOCYTES # (AUTO) 0.8 X10'3 (1.1-4.8); LYMPHOCYTES % (AUTO) 9.3 % (21-51); MEAN CORPUSCULAR HEMOGLOBIN 23.9 PG (27.0-31.0); MEAN CORPUSCULAR HGB CONC 32.4 g/dL (33.0-36.5); MEAN CORPUSCULAR VOLUME 73.6 FL (78-98); MONOCYTES # (AUTO) 1.3 X10'3 (0-0.9); MONOCYTES % (AUTO) 15.2 % (2-12); NEUTROPHILS # (AUTO) 6.3 X10'3 (1.8-7.7); NEUTROPHILS % (AUTO) 73.4 % (42-75); PLATELET COUNT 467 X10'3 (140-440); RED BLOOD COUNT 3.15 X10'6 (4.20-5.60); RED CELL DISTRIBUTION WIDTH 19.6 % (11.5-14.5); WHITE BLOOD COUNT 8.6 X10'3 (4.5-11.0)
[2021-04-20 11:00] VITALS: BP 138/91
[2021-04-20 11:19] LABS: ALBUMIN 1.8 G/DL (3.4-5.0); ANION GAP 11 (8-16); BLOOD UREA NITROGEN 18 MG/DL (7-18); BUN/CREATININE RATIO 13.7 (6.6-38.0); CALCIUM 8.3 MG/DL (8.5-10.1); CHLORIDE 105 MMOL/L (99-107); CREATININE 1.31 MG/DL (0.40-0.90); GLUCOSE 165 MG/DL (70-104); POTASSIUM 3.4 MMOL/L (3.5-5.1); SODIUM 141 MMOL/L (135-145); TOTAL CARBON DIOXIDE 25.3 MMOL/L (24-32); eGFR 44 ML/MIN
[2021-04-20] MEDS: potassium Cl 20 mEq SR tablet PO PRN ×3 (12:31→20:51)
[2021-04-20 12:33] LABS: ANISOCYTOSIS 2+; HYPOCHROMASIA 2+; LARGE PLATELETS FEW; MICROCYTOSIS 1+; PLATELET ESTIMATE INCREASED; POLYCHROMASIA 1+; TOTAL CELLS COUNTED 100
[2021-04-20 12:34] LABS: TARGET CELLS FEW
[2021-04-20] MEDS: lactose-reduced food (Ensure High Protein) 237ml bottle PO SCH ×2 (12:35→19:30)
--- NOTE | 2021-04-20 14:43 | NUR ---
Page to Bobbi PAGER ID: [phone] MESSAGE: Pt Neha Ceravntes 3009, PBNP is 1533, chest xray is taken, let me know if you want covid test. Thank you, Barbara LORENZ [phone]
[2021-04-20 15:00] VITALS: BP 158/90
[2021-04-20] MEDS: furosemide 20 MG/2 ML vial IV SCH (15:22)
--- NOTE | 2021-04-20 16:28 | NUR ---
Problems reprioritized. Patient report given, questions answered & plan of care reviewed with Cruzito RN.
[2021-04-20 16:36] VITALS: BP 144/91
--- NOTE | 2021-04-20 18:30 | NUR ---
Patient in room [facility] 348. I have received report from JESSICA RODRIGUEZ and had the opportunity to ask questions and assume patient care. Addendum: 04/21/21 at 0142 by Chelsea Gordillo RN Amended: Links added.
--- NOTE | 2021-04-20 18:45 | NUR ---
pT DRESSING SAT WITH SEROUS DRNG, COLOSTOMY LEAKING. CNC MACHINE OPERATOR IN ROOM WITH PATIENT, DRESSING CHANGED MOIST TO MOIST, COLOSTOMY CHANGED BY RN, STOMA IS RETRACTED, PT DAUGHTER HAS PICTURE ON PHONE, AFTER DRESSING CHANGED, USED CAMERA TO TAKE PICTURE FRO DAUGHTERS PHONE. NO CAMERA AVAILABLE DURING DRESSING CHANGE, AND PT VERY ANXIOUS AT THAT TIME, DID NOT WISH TO WAIT. Addendum: 04/21/21 at 0150 by Chelsea Gordillo RN Amended: Links added.
[2021-04-20] MEDS: acetaminophen w/codeine (30MG) #3 tablet PO PRN ×2 (18:52→23:52)
--- NOTE | 2021-04-20 18:57 | NUR ---
Problems reprioritized. Patient report given, questions answered & plan of care reviewed with Nafisa LOPEZ.
[2021-04-20 20:00] VITALS: BP 148/90
[2021-04-21] VITALS (10 sets, daily range): BP systolic 106–139; BP diastolic 70–90
--- NOTE | 2021-04-21 | NUR ---
FOAM DRESSING CHANGED TO SACUM, SKIN INTACT TO SACRUM. SL REDDENED, BLANCHABLE. ABD DRESSING CD&I, PT STATES WAS FEELING FLUSHED, BUT NOW PASSING, OOB TO [facility]. VOIDED. NO OTHER CHANGES. TYL #3 GIVEN FOR PAIN. Addendum: 04/21/21 at 0019 by Chelsea Gordillo RN Amended: Links added.
--- NOTE | 2021-04-21 03:40 | NUR ---
PT STATES SOB, CONCERNED ABOUT CHEST XRAY RESULTS. VSS SAT 97% ON 1L N/C. ENC PT TO TAKE DEEP BREATHS AND USE IS, EDUCATED ON ATELECTASIS, AND PLEURAL EFFUSIONS. ABD DRESSING SATURATED, UP TO BSC VOIDED WITHOUT DIFFICULTY, MOVES SLOWLY, STATES FATIGUED. JAZ CARE, LINEN CHANGE, COLOSTOMY EMPTIED NO LEAKING,. 25OML BATES STOOL. Addendum: 04/21/21 at 0452 by Chelsea Gordillo RN Amended: Links added.
[2021-04-21] MEDS: acetaminophen w/codeine (30MG) #3 tablet PO PRN ×3 (03:45→19:16)
--- NOTE | 2021-04-21 04:59 | NUR ---
PT ENC TO USE iS, c&db / pT STARTING TO WORK ON is STATES WILL USE MORE FREQ. bASES DIMINISHED, SOME CRACKLES ON LEFT SIDE, RIGHT VERY DIMINISHED. Addendum: 04/21/21 at 0500 by Chelsea Gordillo RN Amended: Links added.
--- NOTE | 2021-04-21 06:14 | NUR ---
Problems reprioritized. Patient report given, questions answered & plan of care reviewed with JESSICA RODRIGUEZ. Addendum: 04/21/21 at 0615 by Chelsea Gordillo RN Amended: Links added.
--- NOTE | 2021-04-21 06:53 | NUR ---
Patient in room [facility] 348. I have received report from Nafisa LOPEZ and had the opportunity to ask questions and assume patient care.
[2021-04-21 07:04] LABS: BASOPHILS % (AUTO) 0.4 % (0-1); EOSINOPHILS # (AUTO) 0.2 X10'3 (0-0.9); EOSINOPHILS % (AUTO) 2.6 % (0-6); LYMPHOCYTES % (AUTO) 10.9 % (21-51); MEAN CORPUSCULAR HEMOGLOBIN 23.8 PG (27.0-31.0); MEAN CORPUSCULAR HGB CONC 31.8 g/dL (33.0-36.5); MEAN PLATELET VOLUME 7.8 FL (7.4-10.4); MONOCYTES # (AUTO) 1.7 X10'3 (0-0.9); MONOCYTES % (AUTO) 18.1 % (2-12); NEUTROPHILS # (AUTO) 6.2 X10'3 (1.8-7.7); PLATELET COUNT 584 X10'3 (140-440); RED BLOOD COUNT 2.93 X10'6 (4.20-5.60); RED CELL DISTRIBUTION WIDTH 19.6 % (11.5-14.5); WHITE BLOOD COUNT 9.1 X10'3 (4.5-11.0)
[2021-04-21 07:14] LABS: HEMATOCRIT 21.9 % (35.0-45.0)
[2021-04-21] MEDS: lactobacillus rhamnosus 10,000 MMU CELLS/CAPSULE PO SCH ×2 (07:29→19:23)
[2021-04-21] MEDS: metoprolol tartrate 50mg tablet PO SCH ×2 (07:29→19:26)
[2021-04-21] MEDS: losartan 50mg tablet PO SCH (07:29)
--- NOTE | 2021-04-21 07:30 | NUR ---
Received pt report from JESSICA East
--- NOTE | 2021-04-21 07:37 | NUR ---
PAGER ID: [phone] MESSAGE: Cruzito Surg [phone] Re: 348b Joaquina Cevrantes Patient has a critical HH of 7.0/21.9. Critical finding thanks Cruzito Addendum: 04/21/21 at 1745 by Rangel Barraza RN orders received.
[2021-04-21] MEDS: heparin, porcine 5000 units/ml vial SQ SCH ×2 (07:38→19:27)
[2021-04-21] MEDS: JUVEN Shake w/Arg/Glut/Ca2+Bmb (Juven 19.3gm) pkt 240ml PO SCH ×2 (07:45→18:33)
[2021-04-21 07:46] LABS: ALBUMIN 1.8 G/DL (3.4-5.0); ANION GAP 9 (8-16); BLOOD UREA NITROGEN 14 MG/DL (7-18); CALCIUM 8.4 MG/DL (8.5-10.1); CHLORIDE 106 MMOL/L (99-107); CREATININE 1.08 MG/DL (0.40-0.90); GLUCOSE 112 MG/DL (70-104); POTASSIUM 3.9 MMOL/L (3.5-5.1); SODIUM 140 MMOL/L (135-145); TOTAL CARBON DIOXIDE 24.7 MMOL/L (24-32); eGFR 55 ML/MIN
[2021-04-21] MEDS: K and/or MAG REPLACEMENT MC SCH ×2 (08:00→19:27)
[2021-04-21 08:05] LABS: ANISOCYTOSIS 2+; LARGE PLATELETS FEW; MICROCYTOSIS 1+; PLATELET ESTIMATE INCREASED; TOTAL CELLS COUNTED 100
[2021-04-21 08:06] LABS: HYPOCHROMASIA 2+; POLYCHROMASIA 1+
[2021-04-21] MEDS: furosemide 20 MG/2 ML vial IV SCH (08:16)
[2021-04-21] MEDS ORDERED: diphenhydrAMINE 50 mg/ml inj IV PRN (09:20)
[2021-04-21] MEDS ORDERED: lactose-reduced food (Ensure Enlive) - 237ml bottle PO SCH (12:30)
[2021-04-21] MEDS: acetaminophen 325mg tablet PO PRN (12:53)
--- NOTE | 2021-04-21 15:33 | NUR ---
F/u 04/21: Pt advanced to low-residue diet today PO improving ~75% avg past two days w/ 50% Richard ONS BID partially meeting needs. Colostomy -600ml past 24 hours per EMR. Pt seen by RD for written/verbal colostomy ed w/ RD contact information priovided. RD encouraged pt to contact dietitian's office if further questions/concerns. Pt reports no longer wants ensures since only liked Ensure Clears though still likes Richard ONS and requests plain bagel w/ cream cheese WB. Dietary notified of preferences. Will continue to monitor. Rec: 1. continue low-residue diet; fruit cup/fruit juice TIDWM per pt preferences; encourage PO 2. strawberry Richard shake BIDBD; encourage PO 3. Bowel care per rx 4. Weekly wts Addendum: 04/21/21 at [address] Amended: Links added.
[2021-04-21] MEDS ORDERED: furosemide 40mg/4ml inj IV ONE (16:40)
--- NOTE | 2021-04-21 17:44 | NUR ---
Student documentation: I have reviewed and agree with all interventions, assessments performed and documented by Srinivas DIAZ .
--- NOTE | 2021-04-21 17:51 | NUR ---
Wound care came by to place a wound vac to abdomen. Nursing had photo's of her ostomy site and abdominal wound. Her ostomy is with mucocutaneous seperation that is so large I could not see the Os of the stoma, it was retracted back. Her abdominal wound is with some slough build up and may need debridement prior to wound vac placement. I am referring placement of wound vac until surgeon evaluated ostomy/stoma.
--- NOTE | 2021-04-21 18:28 | NUR ---
Patient in room [facility] 345A. I have received report from JESSICA East and had the opportunity to ask questions and assume patient care.
--- NOTE | 2021-04-21 18:53 | NUR ---
Problems reprioritized. Patient report given, questions answered & plan of care reviewed with Kary LOPEZ.
[2021-04-22] VITALS: BP 135/89
[2021-04-22] MEDS: acetaminophen w/codeine (30MG) #3 tablet PO PRN (00:18)
[2021-04-22 06:15] LABS: HEMOGLOBIN 8.1 g/dl (12.0-16.0); LYMPHOCYTES # (AUTO) 1.2 X10'3 (1.1-4.8); RED BLOOD COUNT 3.29 X10'6 (4.20-5.60)
[2021-04-22 06:17] LABS: BASOPHILS # (AUTO) 0.1 X10'3 (0-0.2); BASOPHILS % (AUTO) 0.5 % (0-1); EOSINOPHILS # (AUTO) 0.1 X10'3 (0-0.9); EOSINOPHILS % (AUTO) 1.3 % (0-6); HEMATOCRIT 24.6 % (35.0-45.0); LYMPHOCYTES % (AUTO) 10.8 % (21-51); MEAN CORPUSCULAR HEMOGLOBIN 24.7 PG (27.0-31.0); MEAN CORPUSCULAR HGB CONC 33.1 g/dL (33.0-36.5); MEAN CORPUSCULAR VOLUME 74.7 FL (78-98); MEAN PLATELET VOLUME 7.9 FL (7.4-10.4); MONOCYTES % (AUTO) 17.4 % (2-12); PLATELET COUNT 718 X10'3 (140-440); RED CELL DISTRIBUTION WIDTH 19.7 % (11.5-14.5); WHITE BLOOD COUNT 11.4 X10'3 (4.5-11.0)
[2021-04-22] MEDS: acetaminophen 325mg tablet PO PRN ×3 (06:35→19:48)
--- NOTE | 2021-04-22 06:36 | NUR ---
Problems reprioritized. Patient report given, questions answered & plan of care reviewed with JESSICA Ramirez and JESSICA Dudley.
[2021-04-22 06:57] LABS: ALBUMIN 1.8 G/DL (3.4-5.0); ANION GAP 10 (8-16); BLOOD UREA NITROGEN 13 MG/DL (7-18); BUN/CREATININE RATIO 10.6 (6.6-38.0); CALCIUM 8.2 MG/DL (8.5-10.1); CHLORIDE 103 MMOL/L (99-107); CREATININE 1.23 MG/DL (0.40-0.90); GLUCOSE 127 MG/DL (70-104); POTASSIUM 3.7 MMOL/L (3.5-5.1); SODIUM 140 MMOL/L (135-145); TOTAL CARBON DIOXIDE 26.8 MMOL/L (24-32); eGFR 47 ML/MIN
--- NOTE | 2021-04-22 06:59 | NUR ---
Patient in room K[facility] 345. I have received report from Kary LOPEZ and had the opportunity to ask questions and assume patient care. Left message for wound care regarding wound vac orders.
[2021-04-22 07:00] VITALS: BP 123/79
[2021-04-22 07:21] LABS: TOTAL CELLS COUNTED 100
[2021-04-22 07:22] LABS: GIANT PLATELET FEW; PLATELET ESTIMATE INCREASED
[2021-04-22 07:23] LABS: ANISOCYTOSIS 2+; HYPOCHROMASIA 2+
[2021-04-22 07:24] LABS: MICROCYTOSIS 1+; POLYCHROMASIA 1+; STOMATOCYTES 1+
[2021-04-22] MEDS: K and/or MAG REPLACEMENT MC SCH ×2 (08:00→19:45)
[2021-04-22] MEDS: furosemide 20 MG/2 ML vial IV SCH (08:11)
[2021-04-22] MEDS: lactobacillus rhamnosus 10,000 MMU CELLS/CAPSULE PO SCH ×2 (08:12→19:46)
[2021-04-22] MEDS: losartan 50mg tablet PO SCH (08:12)
[2021-04-22] MEDS: heparin, porcine 5000 units/ml vial SQ SCH ×2 (08:12→19:40)
[2021-04-22] MEDS: metoprolol tartrate 50mg tablet PO SCH ×2 (08:12→19:49)
[2021-04-22] MEDS: JUVEN Shake w/Arg/Glut/Ca2+Bmb (Juven 19.3gm) pkt 240ml PO SCH ×2 (08:23→17:39)
[2021-04-22 11:00] VITALS: BP 110/72
--- NOTE | 2021-04-22 11:09 | NUR ---
Dr Martines rounded on patient aware patients current SBP 110 ok to Dc Catapress and hold off on starting patients home medication Chlorthalidone for the time being. Will reassess if needed.
--- NOTE | 2021-04-22 18:22 | NUR ---
Patient in room [facility] 345A. I have received report from Ashley RN and JESSICA Dudley and had the opportunity to ask questions and assume patient care. Pt resting in room with family. No apparent distress noted.
--- NOTE | 2021-04-22 18:32 | NUR ---
pt report given to Kary
[2021-04-22] MEDS: Dakins solution (1/4 strength) 473ml solution TP SCH (19:55)
[2021-04-22 20:00] VITALS: BP 130/84
[2021-04-23] VITALS (11 sets, daily range): BP systolic 85–127; BP diastolic 55–86
[2021-04-23] MEDS: acetaminophen w/codeine (30MG) #3 tablet PO PRN ×2 (02:46→18:27)
[2021-04-23] MEDS: acetaminophen 325mg tablet PO PRN ×3 (02:51→15:48)
--- NOTE | 2021-04-23 06:18 | NUR ---
Patient in room KETURAH 345. I have received report from Kary LOPEZ and had the opportunity to ask questions and assume patient care.
[2021-04-23 06:19] LABS: HEMOGLOBIN 7.5 g/dl (12.0-16.0); MEAN PLATELET VOLUME 7.6 FL (7.4-10.4)
[2021-04-23 06:23] LABS: BASOPHILS # (AUTO) 0.1 X10'3 (0-0.2); BASOPHILS % (AUTO) 0.5 % (0-1); EOSINOPHILS # (AUTO) 0.1 X10'3 (0-0.9); HEMATOCRIT 22.6 % (35.0-45.0); LYMPHOCYTES # (AUTO) 1.1 X10'3 (1.1-4.8); LYMPHOCYTES % (AUTO) 9.3 % (21-51); MEAN CORPUSCULAR HEMOGLOBIN 24.8 PG (27.0-31.0); MONOCYTES # (AUTO) 1.8 X10'3 (0-0.9); MONOCYTES % (AUTO) 16.1 % (2-12); NEUTROPHILS # (AUTO) 8.3 X10'3 (1.8-7.7); NEUTROPHILS % (AUTO) 73.1 % (42-75); PLATELET COUNT 799 X10'3 (140-440); RED BLOOD COUNT 3.01 X10'6 (4.20-5.60); RED CELL DISTRIBUTION WIDTH 19.9 % (11.5-14.5); WHITE BLOOD COUNT 11.4 X10'3 (4.5-11.0)
[2021-04-23 06:24] LABS: ALBUMIN 1.8 G/DL (3.4-5.0); ANION GAP 10 (8-16); BLOOD UREA NITROGEN 15 MG/DL (7-18); BUN/CREATININE RATIO 15.6 (6.6-38.0); CALCIUM 8.1 MG/DL (8.5-10.1); CHLORIDE 103 MMOL/L (99-107); CREATININE 0.96 MG/DL (0.40-0.90); GLUCOSE 115 MG/DL (70-104); SODIUM 140 MMOL/L (135-145); TOTAL CARBON DIOXIDE 26.9 MMOL/L (24-32); eGFR 63 ML/MIN
--- NOTE | 2021-04-23 06:32 | NUR ---
Problems reprioritized. Patient report given, questions answered & plan of care reviewed with JESSICA Ramirez .
--- NOTE | 2021-04-23 06:36 | NUR ---
I have reviewed and agree with all interventions, assessments performed and documented by JESSICA Hopkins.
[2021-04-23] MEDS: heparin, porcine 5000 units/ml vial SQ SCH ×2 (06:54→20:00)
[2021-04-23] MEDS: JUVEN Shake w/Arg/Glut/Ca2+Bmb (Juven 19.3gm) pkt 240ml PO SCH ×2 (06:55→17:30)
[2021-04-23 07:08] LABS: ANISOCYTOSIS 2+; LARGE PLATELETS FEW; MICROCYTOSIS 1+; PLATELET ESTIMATE INCREASED; TOTAL CELLS COUNTED 100
[2021-04-23 07:09] LABS: HYPOCHROMASIA 1+; POLYCHROMASIA 1+
[2021-04-23] MEDS: furosemide 20 MG/2 ML vial IV SCH (07:37)
[2021-04-23] MEDS: lactobacillus rhamnosus 10,000 MMU CELLS/CAPSULE PO SCH ×2 (07:37→20:00)
[2021-04-23] MEDS: losartan 50mg tablet PO SCH (07:39)
[2021-04-23] MEDS: metoprolol tartrate 50mg tablet PO SCH ×2 (07:40→20:00)
[2021-04-23] MEDS: K and/or MAG REPLACEMENT MC SCH (07:45)
--- NOTE | 2021-04-23 10:03 | NUR ---
Dr Martines aware patient S/L and NPO for surgery no need for IV fluids per Dr Martines.
[2021-04-23] MEDS ORDERED: ringers solution, lacted 1,000 ML IV SCH ×2 (10:20→18:00)
[2021-04-23] MEDS ORDERED: famotidine/PF 10 mg/ml inj IV ONE (10:25)
[2021-04-23 10:32] LABS: PARTIAL THROMBOPLASTIN TIME 24 SECONDS (22-32)
[2021-04-23] MEDS: Dakins solution (1/4 strength) 473ml solution TP SCH ×2 (11:28→20:00)
[2021-04-23] MEDS ORDERED: HYDROmorphone inj. 0.5 MG/0.5 ML DISP.SYRIN IV PRN ×2 (13:25)
--- NOTE | 2021-04-23 13:37 | NUR ---
PAGER ID: [phone] MESSAGE: Ashley-Surg [phone] Re: Billy please call patient shivering vitals Temp 99.8 HR 141 123/81 pain 6/10 RR 24 can we do a lactic ?
--- NOTE | 2021-04-23 14:25 | NUR ---
PAGER ID: [phone] MESSAGE: Ashley-Surg [phone] Re: Billy please call re: Lactic is 2.4 Addendum: 04/23/21 at 1432 by Ashley Underwood RN Dr Martines aware and does not want to Bolus patient at this time. Dr Martines aware received orders for anesthesiologist to run LR @50ml/hr.
--- NOTE | 2021-04-23 14:58 | NUR ---
PAGER ID: [phone] MESSAGE: Ashley-Surg [phone] Re: Billy 345A temp now 103.1 oral do you want blood cultures I will also notify Dr Noriega
--- NOTE | 2021-04-23 15:10 | NUR ---
Spoke to Dr Noriega to inform him that patient has a temp of 103.1 orally. Patient due to go to surgery tonight at 1745. Dr Noriega aware patients Lactic of 2.[address] Martines not wanting to bolus at this time due to patient shortness of breath over the last few days. Patient on lasix. Received orders from Dr Noriega to do blood cultures x2 and to transfer patient to ICU. Paged Dr Martines to notify and see if we can do a Covid test per Stem Frazer Neha request.
--- NOTE | 2021-04-23 15:11 | NUR ---
PAGER ID: [phone] MESSAGE: Ashley-Surg [phone] Re: [id number] C[address] Dr Noriega wants patient transferred to ICU please call Addendum: 04/23/21 at 1532 by Ashley Underwood RN Dr Martines aware I spoke to Dr Noriega about patient. Patients current vitals: temp 103.1 oral , HR 169 Bp 124/82 RR 30 Sats 93 1.5L Received orders for 500ml NS bolus, Zosyn 4.5mg IV Q8h to start now, CBC, BMP and transfer to Tele on Tele. Asked if he would like to talk to paolo and he said no at this time patient should go to Tele. Called Dr Noriega back and notified of above orders and he would like patient to go to ICU and he already spoke to Dr Riggs
[2021-04-23] MEDS ORDERED: normal saline 500ml IV soln 500 ML IV ONE (15:25)
--- NOTE | 2021-04-23 15:38 | NUR ---
Greyson the CNO said we can order a covid test under Dr Cruzito Contreras name per protocol
[2021-04-23 16:13] LABS: BASOPHILS # (AUTO) 0.1 X10'3 (0-0.2); EOSINOPHILS % (AUTO) 0.1 % (0-6)
[2021-04-23 16:15] LABS: BASOPHILS % (AUTO) 0.3 % (0-1); HEMATOCRIT 31.5 % (35.0-45.0); LYMPHOCYTES # (AUTO) 0.9 X10'3 (1.1-4.8); LYMPHOCYTES % (AUTO) 4.1 % (21-51); MEAN CORPUSCULAR HGB CONC 31.7 g/dL (33.0-36.5); MEAN CORPUSCULAR VOLUME 75.8 FL (78-98); MEAN PLATELET VOLUME 7.9 FL (7.4-10.4); MONOCYTES # (AUTO) 0.7 X10'3 (0-0.9); MONOCYTES % (AUTO) 3.3 % (2-12); NEUTROPHILS % (AUTO) 92.2 % (42-75); RED BLOOD COUNT 4.15 X10'6 (4.20-5.60); RED CELL DISTRIBUTION WIDTH 20.3 % (11.5-14.5); WHITE BLOOD COUNT 22.8 X10'3 (4.5-11.0)
[2021-04-23] MEDS: piperacillin/tazo 4.5gm/100ml 100 ML IV SCH (16:17)
[2021-04-23 16:20] LABS: PLATELET COUNT 1208 X10'3 (140-440)
[2021-04-23 16:24] LABS: ALBUMIN 1.8 G/DL (3.4-5.0); ANION GAP 11 (8-16); BLOOD UREA NITROGEN 16 MG/DL (7-18); BUN/CREATININE RATIO 14.2 (6.6-38.0); CALCIUM 8.3 MG/DL (8.5-10.1); CHLORIDE 103 MMOL/L (99-107); CREATININE 1.13 MG/DL (0.40-0.90); GLUCOSE 125 MG/DL (70-104); POTASSIUM 3.9 MMOL/L (3.5-5.1); SODIUM 138 MMOL/L (135-145); TOTAL CARBON DIOXIDE 24.5 MMOL/L (24-32); eGFR 52 ML/MIN
[2021-04-23 16:39] LABS: ANISOCYTOSIS 3+; MICROCYTOSIS 1+; PLATELET ESTIMATE INCREASED; TOTAL CELLS COUNTED 100
[2021-04-23 16:40] LABS: HYPOCHROMASIA 1+; POLYCHROMASIA FEW; STOMATOCYTES FEW; TARGET CELLS FEW
[2021-04-23 16:41] LABS: TOXIC GRANULATION 1+
[2021-04-23 16:42] LABS: SPHEROCYTES 1+
--- NOTE | 2021-04-23 17:00 | NUR ---
Patient report given to Greyson RN via phone all questions answered. Will transfer patient after I speak with Dr Bolden who is on the floor.
--- NOTE | 2021-04-23 17:50 | NUR ---
Patient transferred to 2040 via hospital bed. Patient transported on 1L oxygen NC Zosyn and LR running per MD orders. Daughter came with us and stated she had all patients belongings. Patient care transferred to Greyson LOPEZ after assisting transferring patient from our hospital bed to ICU hospital bed with slide board.
--- NOTE | 2021-04-23 17:54 | NUR ---
Received Pt. Patient in room ICU 2040. I have received report from Ashley RN form surgical floor and had the opportunity to ask questions and assume patient care. Pt situated in bed with slide board and assistance from 4 other RNs. IVs were reconnected and restarted to 20g in pts Rt hand. Moving resulted in tachycardia to 150-160s. RR 35-40. Requested Tylenol#3 for pain stating other pain meds make her "unpleasant". Daughter to bedside with fan for pt which helps calm her.
[2021-04-23] MEDS ORDERED: labetalol 20mg/4ml (5mg/ml) syringe IV PRN (18:00)
[2021-04-23] MEDS ORDERED: ondansetron/PF 4mg/2ml inj IV PRN (18:00)
[2021-04-23] MEDS ORDERED: hydrALAZINE 20mg/ml inj. IV PRN (18:00)
[2021-04-23] MEDS ORDERED: fentaNYL/PF 50MCG/1 ML 2ML syringe IV PRN ×2 (18:00)
--- NOTE | 2021-04-23 18:05 | NUR ---
Shift note Pt calmer after Tylenol #3. HR and RR rate down but still tachy. BP with map > 60. Daughter at bedside. OR was here to see pt and have her sign blood & OR consent. Assessment: breath sounds clear bilat to auscultation. S1 S2 with rapid rate. Abdomen large, tender with large dressing a midline, c/d/i. Colostomy to Rt with air & stool in bag. Hypoactive bowel sounds.
--- NOTE | 2021-04-23 18:45 | NUR ---
Problems reprioritized. Patient report given, questions answered & plan of care reviewed with Cvalyn RN.
[2021-04-23] MEDS: fluconazole/NS 400mg/200ml bag 200 ML IV SCH (19:01)
[2021-04-23] MEDS ORDERED: fentaNYL /PF 50mcg/ml 5ml ampule ONE (19:04)
[2021-04-23] MEDS ORDERED: MIDAZolam 1 MG/ML 5ML VIAL ONE (19:04)
[2021-04-23] MEDS ORDERED: LIDOcaine 1% (10mg/ml) 2ml vial ONE (19:12)
[2021-04-23 19:23] LABS: TRIGLYCERIDES 180 MG/DL (20-135)
[2021-04-23] MEDS ORDERED: isoflurane 100ml inhalation liquid IH ONE (19:30)
[2021-04-23] MEDS ORDERED: desflurane 240ml liquid inh. IH ONE (19:30)
--- NOTE | 2021-04-23 19:43 | NUR ---
Patient taken to surgery, handoff given at bedside to OR team.
[2021-04-23] MEDS ORDERED: LIDOcaine 2% (20mg/ml) 5ml vial ONE (20:14)
[2021-04-23] MEDS ORDERED: propofol inj 20 ML IV ONE (20:14)
[2021-04-23] MEDS ORDERED: rocuronium 10mg/ml inj IV ONE ×2 (20:14→20:40)
[2021-04-23] MEDS ORDERED: albumin (Human) 5% 250ml 250 ML IV ONE ×3 (20:14→20:21)
[2021-04-23] MEDS ORDERED: phenylephrine 10mg/ml inj. ONE (20:37)
[2021-04-23] MEDS: FENTANYL-0.9 % NACL/PF 100 ML IV PRN (21:38)
[2021-04-23 21:40] LABS: ABG BASE EXCESS -4.1 mmol/L (-2.0-2.0); ABG HCO3 20.2 mmol/L (22.0-26.0); ABG OXYGEN SATURATION 97.5 % (94-97); ABG PCO2 (T) 32.1 mmHg (32.0-45.0); ABG PO2 (T) 109.5 mmHg (75.0-100.0); ALLEN'S TEST POSITIVE; FCOHb 0.3 % (0.0-3.9); FMetHb 0.5 % (0.0-1.5); FO2Hb 96.7 % (94-97); PATIENT TEMPERATURE 36.2; PEEP 5 cm H2O; RESPIRATORY RATE 12 b/min; TIDAL VOLUME 650 mL; TOTAL HEMOGLOBIN 8.2 G/dl (12.0-16.0)
[2021-04-23] MEDS: propofol 1000mg/100ml bottle 100 ML IV SCH (21:42)
[2021-04-24] VITALS (25 sets, daily range): BP systolic 79–112; BP diastolic 41–75
[2021-04-24] MEDS: piperacillin/tazo 4.5gm/100ml 100 ML IV SCH ×3 (01:12→16:45)
[2021-04-24 02:51] LABS: ABG BASE EXCESS -0.6 mmol/L (-2.0-2.0); ABG HCO3 23.1 mmol/L (22.0-26.0); ABG OXYGEN SATURATION 97.3 % (94-97); ABG PCO2 (T) 32.7 mmHg (32.0-45.0); ABG PO2 (T) 102.8 mmHg (75.0-100.0); FMetHb 0.6 % (0.0-1.5); FO2Hb 96.7 % (94-97); PATIENT TEMPERATURE 36.3; PEEP 5 cm H2O; RESPIRATORY RATE 12 b/min; TIDAL VOLUME 650 mL; TOTAL HEMOGLOBIN 8.1 G/dl (12.0-16.0)
[2021-04-24 03:42] LABS: BASOPHILS # (AUTO) 0.1 X10'3 (0-0.2); BASOPHILS % (AUTO) 0.4 % (0-1)
[2021-04-24 03:46] LABS: EOSINOPHILS % (AUTO) 0.2 % (0-6); HEMATOCRIT 28.7 % (35.0-45.0); LYMPHOCYTES # (AUTO) 1.1 X10'3 (1.1-4.8); LYMPHOCYTES % (AUTO) 6.3 % (21-51); MEAN CORPUSCULAR HEMOGLOBIN 23.7 PG (27.0-31.0); MEAN CORPUSCULAR HGB CONC 31.2 g/dL (33.0-36.5); MEAN PLATELET VOLUME 7.6 FL (7.4-10.4); MONOCYTES # (AUTO) 1.5 X10'3 (0-0.9); MONOCYTES % (AUTO) 8.9 % (2-12); NEUTROPHILS # (AUTO) 14.6 X10'3 (1.8-7.7); NEUTROPHILS % (AUTO) 84.2 % (42-75); PLATELET COUNT 650 X10'3 (140-440); RED BLOOD COUNT 3.78 X10'6 (4.20-5.60); WHITE BLOOD COUNT 17.3 X10'3 (4.5-11.0)
[2021-04-24] MEDS: FENTANYL-0.9 % NACL/PF 100 ML IV PRN (03:52)
[2021-04-24 04:05] LABS: ALBUMIN 1.8 G/DL (3.4-5.0); ANION GAP 12 (8-16); BLOOD UREA NITROGEN 22 MG/DL (7-18); BUN/CREATININE RATIO 14.3 (6.6-38.0); CALCIUM 7.1 MG/DL (8.5-10.1); CHLORIDE 105 MMOL/L (99-107); CREATININE 1.54 MG/DL (0.40-0.90); GLUCOSE 134 MG/DL (70-104); POTASSIUM 4.3 MMOL/L (3.5-5.1); SODIUM 141 MMOL/L (135-145); TOTAL CARBON DIOXIDE 24.3 MMOL/L (24-32); TRIGLYCERIDES 126 MG/DL (20-135); eGFR 36 ML/MIN
[2021-04-24 04:28] LABS: ANISOCYTOSIS 2+; HYPOCHROMASIA 1+; MICROCYTOSIS 1+; PLATELET ESTIMATE INCREASED; POLYCHROMASIA FEW; SPHEROCYTES 1+; STOMATOCYTES FEW; TOTAL CELLS COUNTED 100
[2021-04-24] MEDS: JUVEN Shake w/Arg/Glut/Ca2+Bmb (Juven 19.3gm) pkt 240ml PO SCH ×2 (07:30→17:30)
[2021-04-24] MEDS: metoprolol tartrate 50mg tablet PO SCH (08:00)
[2021-04-24] MEDS: K and/or MAG REPLACEMENT MC SCH ×2 (08:00→20:00)
[2021-04-24] MEDS: losartan 50mg tablet PO SCH (08:00)
[2021-04-24] MEDS: Dakins solution (1/4 strength) 473ml solution TP SCH ×2 (08:00→20:00)
[2021-04-24] MEDS: lactobacillus rhamnosus 10,000 MMU CELLS/CAPSULE PO SCH ×2 (08:41→19:59)
[2021-04-24] MEDS: fluconazole/NS 400mg/200ml bag 200 ML IV SCH (08:41)
[2021-04-24] MEDS: furosemide 20 MG/2 ML vial IV SCH (08:41)
[2021-04-24] MEDS: heparin, porcine 5000 units/ml vial SQ SCH ×2 (08:44→20:02)
--- NOTE | 2021-04-24 11:44 | NUR ---
F/u 04/24: Pt's stoma had retracted and underwent stoma revision 04/23, also found to have subphrenic abscess per EMR Pt was intubated though is now extubated and diet can advance as tolerated starting at Clear liquids per Surgeon. Pt still septic per MD note. Pt was eating mostly 50-75% of meals on Low Fiber diet prior to procedure and noted to have 300ml stool output 04/23. Will continue to monitor and make recommendations as appropriate. Rec: 1. Advance diet as medically indicated/per Surgeon to Low fiber diet 2. When diet advanced to at least full liquid, strawberry Richard shake BIDBD; encourage PO 3. Bowel care per rx 4. Weekly wts Addendum: 04/24/21 at [address] Amended: Links added.
[2021-04-24] MEDS: acetaminophen 325mg tablet PO PRN ×2 (11:53→17:48)
--- NOTE | 2021-04-24 18:30 | NUR ---
Patient in room ICU 2040. I have received report from Shiv LOPEZ and had the opportunity to ask questions and assume patient care.
[2021-04-25] VITALS (30 sets, daily range): BP systolic 75–141; BP diastolic 61–90
[2021-04-25] MEDS: piperacillin/tazo 4.5gm/100ml 100 ML IV SCH ×2 (00:42→07:14)
[2021-04-25] MEDS: acetaminophen w/codeine (30MG) #3 tablet PO PRN ×3 (01:34→16:58)
[2021-04-25] MEDS: propofol 1000mg/100ml bottle 100 ML IV SCH (03:35)
--- NOTE | 2021-04-25 05:13 | NUR ---
Pt VSS stable this shift, 500+ml out from colostomy this shift. Urine output adequate 35ml-60ml hourly. Tylenol w/codeine administered once for slight abd pain. Low interest in po foods. Does have some low fiber snacks in room. Liquid intake adequate. No real changes from day shift. Will continue to monitor.
--- NOTE | 2021-04-25 06:07 | NUR ---
Problems reprioritized. Patient report given, questions answered & plan of care reviewed with Baylee LOPEZ.
[2021-04-25 06:33] LABS: BASOPHILS # (AUTO) 0.1 X10'3 (0-0.2); EOSINOPHILS # (AUTO) 0.2 X10'3 (0-0.9); MEAN CORPUSCULAR VOLUME 75.1 FL (78-98); WHITE BLOOD COUNT 22.3 X10'3 (4.5-11.0)
[2021-04-25 06:35] LABS: BASOPHILS % (AUTO) 0.4 % (0-1); EOSINOPHILS % (AUTO) 0.8 % (0-6); LYMPHOCYTES # (AUTO) 1.4 X10'3 (1.1-4.8); LYMPHOCYTES % (AUTO) 6.3 % (21-51); MEAN CORPUSCULAR HEMOGLOBIN 24.4 PG (27.0-31.0); MEAN CORPUSCULAR HGB CONC 32.5 g/dL (33.0-36.5); MEAN PLATELET VOLUME 7.3 FL (7.4-10.4); MONOCYTES # (AUTO) 1.7 X10'3 (0-0.9); MONOCYTES % (AUTO) 7.7 % (2-12); NEUTROPHILS # (AUTO) 18.9 X10'3 (1.8-7.7); NEUTROPHILS % (AUTO) 84.8 % (42-75); PLATELET COUNT 820 X10'3 (140-440); RED BLOOD COUNT 2.58 X10'6 (4.20-5.60); RED CELL DISTRIBUTION WIDTH 20.2 % (11.5-14.5)
[2021-04-25 07:00] LABS: ALBUMIN 1.6 G/DL (3.4-5.0); ANION GAP 12 (8-16); BLOOD UREA NITROGEN 23 MG/DL (7-18); BUN/CREATININE RATIO 15.4 (6.6-38.0); CALCIUM 7.4 MG/DL (8.5-10.1); CHLORIDE 100 MMOL/L (99-107); CREATININE 1.49 MG/DL (0.40-0.90); GLUCOSE 109 MG/DL (70-104); POTASSIUM 3.7 MMOL/L (3.5-5.1); SODIUM 138 MMOL/L (135-145); TOTAL CARBON DIOXIDE 26.4 MMOL/L (24-32); eGFR 38 ML/MIN
[2021-04-25 07:09] LABS: HEMATOCRIT 19.4 % (35.0-45.0); HEMOGLOBIN 6.3 g/dl (12.0-16.0)
[2021-04-25 07:13] LABS: HYPOCHROMASIA 1+; MICROCYTOSIS 1+; PLATELET ESTIMATE INCREASED; TOTAL CELLS COUNTED 100
[2021-04-25] MEDS: fluconazole/NS 400mg/200ml bag 200 ML IV SCH (07:14)
[2021-04-25] MEDS: lactobacillus rhamnosus 10,000 MMU CELLS/CAPSULE PO SCH ×2 (07:14→19:43)
[2021-04-25] MEDS: furosemide 20 MG/2 ML vial IV SCH (07:14)
[2021-04-25 07:15] LABS: ANISOCYTOSIS 3+; POLYCHROMASIA 1+; SPHEROCYTES FEW; STOMATOCYTES FEW
[2021-04-25] MEDS: acetaminophen 325mg tablet PO PRN ×4 (07:15→18:39)
[2021-04-25] MEDS: JUVEN Shake w/Arg/Glut/Ca2+Bmb (Juven 19.3gm) pkt 240ml PO SCH ×2 (07:30→17:38)
[2021-04-25] MEDS: heparin, porcine 5000 units/ml vial SQ SCH (08:00)
[2021-04-25] MEDS: K and/or MAG REPLACEMENT MC SCH ×2 (08:00→20:00)
[2021-04-25] MEDS: Dakins solution (1/4 strength) 473ml solution TP SCH ×2 (08:00→20:00)
[2021-04-25] MEDS: pantoprazole 40 MG vial IV SCH (09:13)
[2021-04-25] MEDS ORDERED: cefepime 1GM/NS ADD-VANTAGE 100 ML IV SCH (09:55)
[2021-04-25] MEDS ORDERED: metroNIDAZOLE-Flagyl 500mg/NS 100 ML IV SCH (09:55)
[2021-04-25] MEDS ORDERED: cefepime 1GM in D5W 50mL 50 ML IV SCH (10:19)
--- NOTE | 2021-04-25 11:13 | NUR ---
F/u 04/25: Pt PO 75% low-residue breakfast this AM though Hgb significant drop to 6.3 this AM concern for bleed and pt to be NPO until imaging results per feed blender at rounds. Dietary notified of NPO status at this time. Addendum: 04/25/21 at [address] Amended: Links added.
[2021-04-25] MEDS: meropenem inj 1 GM in normal saline 100ml IV soln 100 ML IV SCH ×2 (11:45→19:43)
[2021-04-25 20:35] LABS: EOSINOPHILS # (AUTO) 0.2 X10'3 (0-0.9); HEMOGLOBIN 8.3 g/dl (12.0-16.0); MEAN PLATELET VOLUME 6.9 FL (7.4-10.4); MONOCYTES # (AUTO) 1.2 X10'3 (0-0.9); NEUTROPHILS # (AUTO) 14.7 X10'3 (1.8-7.7)
[2021-04-25 20:36] LABS: BASOPHILS # (AUTO) 0.2 X10'3 (0-0.2); BASOPHILS % (AUTO) 1.2 % (0-1); LYMPHOCYTES % (AUTO) 5.7 % (21-51); MEAN CORPUSCULAR HEMOGLOBIN 25.8 PG (27.0-31.0); MEAN CORPUSCULAR HGB CONC 33.2 g/dL (33.0-36.5); MEAN CORPUSCULAR VOLUME 77.6 FL (78-98); MONOCYTES % (AUTO) 6.8 % (2-12); NEUTROPHILS % (AUTO) 85.3 % (42-75); PLATELET COUNT 857 X10'3 (140-440); RED BLOOD COUNT 3.22 X10'6 (4.20-5.60); RED CELL DISTRIBUTION WIDTH 20.9 % (11.5-14.5); WHITE BLOOD COUNT 17.2 X10'3 (4.5-11.0)
--- NOTE | 2021-04-25 21:50 | NUR ---
RECEIVED REPORT FROM JESISCA PARRISH @ 2100. UPON ENTERING ROOM, PATIENT IN BED WATCHING TELEVISION. NURSE INTRODUCE SELF TO PATIENT. NO SIGNS OF DISTRESS NOTED AT THIS TIME. PATIENT AWARE OF PLAN OF CARE FOR THIS EVENING. VERBALIZED AGREEMENT. CALL LIGHT AND PERSONAL BELONGINGS PLACED WITHIN REACH. INSTRUCTED PATIENT TO CALL FOR ASSISTANCE. Addendum: 04/25/21 at 2206 by Samson Adam RN NASAL CANNULA IN PLACE. MORALES AND COLOSTOMY BAG EMPTIED AND INTACT. BLANCA DORSALIS PEDIS PULSE 2+. RADIAL PULSES BLANCA 2+. RESPIRATIONS EVEN. MILD SOB NOTED AT REST. PATIENT STATES SHE EXPERIENCES SLIGHT DISCOMFORT WITH DEEP INHALE. EDUCATED PATIENT ON USE OF INCENTIVE SPIROMETER. IV SITE INTACT. MINIMAL BLOODY DRAINAGE NOTED TO IV SITE. PATIENT STATES SHE WOULD LIKE TO REINFORCE IV SITE AT TIME OF DRESSING CHANGE. DRESSING TO ABDOMEN CLEAN DRY AND INTACT. WILL CONTINUE TO MONITOR.
[2021-04-26] VITALS (25 sets, daily range): BP systolic 125–164; BP diastolic 73–98
--- NOTE | 2021-04-26 00:01 | NUR ---
0000- UPON ENTERING ROOM, PATIENT STATED SHE WAS HAVING A HEADACHE. PAIN MEDICATION ADMINISTERED PER ORDER. ON REASSESSMENT, PATIENT STATED SHE DID NOT WANT TO HAVE 0100 DRESSING CHANGE DUE TO INCREASED PAIN. PATIENT REQUEST THAT NURSE COME BACK AND PERFORM DRESSING CHANGE AT LATER TIME. EDUCATED PATIENT THAT DRESSING CHANGES ARE DUE TO BE PERFORMED TWICE A SHIFT. PATIENT VERBALIZED UNDERSTANDING AND REQUESTED DRESSING CHANGE BE PUSHED BACK TO ALLOW REST. WILL CONTINUE TO MONITOR.
[2021-04-26] MEDS: acetaminophen w/codeine (30MG) #3 tablet PO PRN ×4 (00:06→22:41)
--- NOTE | 2021-04-26 04:30 | NUR ---
DRESSING CHANGE TO MEDIAL ABDOMEN PERFORMED. MINIMAL DRAINAGE TO PREVIOUS DRESSING. PATIENT TOLERATED PROCEDURE WELL. WILL CONTINUE TO MONITOR.
[2021-04-26] MEDS: acetaminophen 325mg tablet PO PRN ×2 (05:10→14:58)
--- NOTE | 2021-04-26 05:41 | NUR ---
Patient in bed resting with eyes closed at this time. No signs of distress noted at this time. VSS throughout shift. Call light and personal belongings placed within reach of patient.
[2021-04-26] MEDS: JUVEN Shake w/Arg/Glut/Ca2+Bmb (Juven 19.3gm) pkt 240ml PO SCH ×2 (07:30→17:30)
[2021-04-26] MEDS: K and/or MAG REPLACEMENT MC SCH ×2 (08:00→20:00)
[2021-04-26] MEDS: Dakins solution (1/4 strength) 473ml solution TP SCH ×2 (08:00→20:00)
[2021-04-26 08:10] LABS: BASOPHILS # (AUTO) 0.2 X10'3 (0-0.2); EOSINOPHILS # (AUTO) 0.1 X10'3 (0-0.9); HEMOGLOBIN 8.8 g/dl (12.0-16.0); NEUTROPHILS # (AUTO) 13.6 X10'3 (1.8-7.7)
[2021-04-26 08:13] LABS: BASOPHILS % (AUTO) 1.2 % (0-1); EOSINOPHILS % (AUTO) 0.8 % (0-6); HEMATOCRIT 26.5 % (35.0-45.0); LYMPHOCYTES % (AUTO) 5.9 % (21-51); MEAN CORPUSCULAR HEMOGLOBIN 25.8 PG (27.0-31.0); MEAN CORPUSCULAR VOLUME 78.1 FL (78-98); MONOCYTES # (AUTO) 1.2 X10'3 (0-0.9); MONOCYTES % (AUTO) 7.3 % (2-12); NEUTROPHILS % (AUTO) 84.8 % (42-75); PLATELET COUNT 951 X10'3 (140-440); RED BLOOD COUNT 3.39 X10'6 (4.20-5.60); RED CELL DISTRIBUTION WIDTH 20.5 % (11.5-14.5)
[2021-04-26 08:53] LABS: ALANINE AMINOTRANSFERASE 18 U/L (12-78); ALBUMIN 1.6 G/DL (3.4-5.0); ALBUMIN/GLOBULIN RATIO 0.3 (1.1-1.5); ALKALINE PHOSPHATASE 251 IU/L (46-116); ANION GAP 10 (8-16); ASPARTATE AMINO TRANSFERASE 27 U/L (10-37); BILIRUBIN,TOTAL 0.4 MG/DL (0.1-1.0); BLOOD UREA NITROGEN 17 MG/DL (7-18); BUN/CREATININE RATIO 15.7 (6.6-38.0); CALCIUM 7.5 MG/DL (8.5-10.1); CHLORIDE 104 MMOL/L (99-107); CREATININE 1.08 MG/DL (0.40-0.90); GLUCOSE 90 MG/DL (70-104); POTASSIUM 3.7 MMOL/L (3.5-5.1); SODIUM 141 MMOL/L (135-145); TOTAL CARBON DIOXIDE 26.6 MMOL/L (24-32); TOTAL PROTEIN 6.6 G/DL (6.4-8.2); eGFR 55 ML/MIN
[2021-04-26] MEDS: meropenem inj 1 GM in normal saline 100ml IV soln 100 ML IV SCH ×2 (09:01→19:01)
[2021-04-26] MEDS: lactobacillus rhamnosus 10,000 MMU CELLS/CAPSULE PO SCH ×2 (09:01→19:01)
[2021-04-26] MEDS: furosemide 20 MG/2 ML vial IV SCH (09:01)
[2021-04-26] MEDS: pantoprazole 40 MG vial IV SCH (09:01)
[2021-04-26] MEDS: fluconazole/NS 400mg/200ml bag 200 ML IV SCH (09:02)
[2021-04-26 09:12] LABS: ANISOCYTOSIS 3+; MICROCYTOSIS 1+; PLATELET ESTIMATE INCREASED; POIKILOCYTOSIS FEW; POLYCHROMASIA FEW
[2021-04-26] MEDS: propofol 1000mg/100ml bottle 100 ML IV SCH (13:10)
[2021-04-26] MEDS: diatr meglu/diatrizoate 30ml oral sol.-(3 dose) bottle PO SCH (21:03)
--- NOTE | 2021-04-26 23:48 | NUR ---
Pt BP has been running 150s/90s. Pt declines PRN hydralazine at this time.
[2021-04-27] VITALS (22 sets, daily range): BP systolic 115–163; BP diastolic 4–103
[2021-04-27] MEDS: acetaminophen w/codeine (30MG) #3 tablet PO PRN ×4 (04:10→22:12)
[2021-04-27] MEDS: fluconazole/NS 400mg/200ml bag 200 ML IV SCH (07:23)
[2021-04-27] MEDS: diatr meglu/diatrizoate 30ml oral sol.-(3 dose) bottle PO SCH ×2 (07:23→10:31)
[2021-04-27] MEDS: furosemide 20 MG/2 ML vial IV SCH (07:23)
[2021-04-27] MEDS: lactobacillus rhamnosus 10,000 MMU CELLS/CAPSULE PO SCH ×2 (07:24→22:12)
[2021-04-27] MEDS: meropenem inj 1 GM in normal saline 100ml IV soln 100 ML IV SCH ×2 (07:24→18:56)
[2021-04-27] MEDS: pantoprazole 40 MG vial IV SCH (07:24)
[2021-04-27] MEDS: JUVEN Shake w/Arg/Glut/Ca2+Bmb (Juven 19.3gm) pkt 240ml PO SCH ×2 (07:30→17:27)
[2021-04-27] MEDS: K and/or MAG REPLACEMENT MC SCH ×2 (08:00→19:53)
[2021-04-27] MEDS: hydrALAZINE 20mg/ml inj. IV PRN ×2 (10:02→18:02)
[2021-04-27] MEDS ORDERED: iohexol 300mg/ml 100ml inj. ONE (10:31)
[2021-04-27 10:58] LABS: BASOPHILS % (AUTO) 0.4 % (0-1); EOSINOPHILS # (AUTO) 0.1 X10'3 (0-0.9); MEAN CORPUSCULAR HEMOGLOBIN 25.2 PG (27.0-31.0); MEAN CORPUSCULAR HGB CONC 31.8 g/dL (33.0-36.5); MEAN CORPUSCULAR VOLUME 79.1 FL (78-98)
[2021-04-27 11:00] LABS: HEMATOCRIT 27.4 % (35.0-45.0); HEMOGLOBIN 8.7 g/dl (12.0-16.0); LYMPHOCYTES % (AUTO) 7.8 % (21-51); MEAN PLATELET VOLUME 6.7 FL (7.4-10.4); MONOCYTES # (AUTO) 1.3 X10'3 (0-0.9); MONOCYTES % (AUTO) 10.4 % (2-12); NEUTROPHILS % (AUTO) 80.4 % (42-75); PLATELET COUNT 923 X10'3 (140-440); RED BLOOD COUNT 3.47 X10'6 (4.20-5.60); RED CELL DISTRIBUTION WIDTH 20.8 % (11.5-14.5); WHITE BLOOD COUNT 12.4 X10'3 (4.5-11.0)
[2021-04-27 11:17] LABS: ALANINE AMINOTRANSFERASE 18 U/L (12-78); ALBUMIN 1.5 G/DL (3.4-5.0); ALBUMIN/GLOBULIN RATIO 0.3 (1.1-1.5); ALKALINE PHOSPHATASE 208 IU/L (46-116); ANION GAP 8 (8-16); ASPARTATE AMINO TRANSFERASE 23 U/L (10-37); BILIRUBIN,TOTAL 0.3 MG/DL (0.1-1.0); BLOOD UREA NITROGEN 14 MG/DL (7-18); BUN/CREATININE RATIO 14.4 (6.6-38.0); CHLORIDE 105 MMOL/L (99-107); CREATININE 0.97 MG/DL (0.40-0.90); GLUCOSE 98 MG/DL (70-104); POTASSIUM 4.1 MMOL/L (3.5-5.1); SODIUM 141 MMOL/L (135-145); TOTAL CARBON DIOXIDE 28.4 MMOL/L (24-32); TOTAL PROTEIN 6.8 G/DL (6.4-8.2); eGFR 62 ML/MIN
[2021-04-27 11:29] LABS: TOTAL CELLS COUNTED 100
[2021-04-27 11:31] LABS: ANISOCYTOSIS 3+; MICROCYTOSIS 1+; PLATELET ESTIMATE INCREASED; POLYCHROMASIA FEW; STOMATOCYTES 1+; TEAR DROP CELLS FEW
[2021-04-27] MEDS: acetaminophen 325mg tablet PO PRN (13:04)
[2021-04-27] MEDS: Dakins solution (1/4 strength) 473ml solution TP SCH ×2 (13:05→20:00)
--- NOTE | 2021-04-27 14:15 | NUR ---
amaya care done and abdominal wound cleaned and redressed
--- NOTE | 2021-04-27 18:20 | NUR ---
Problems reprioritized. Patient report given, questions answered & plan of care reviewed with Kiley LOPEZ.
[2021-04-27] MEDS: vancomycin/NS 1 GM ADD-VANTAGE 250 ML IV SCH (20:08)
[2021-04-28] VITALS (15 sets, daily range): BP systolic 116–164; BP diastolic 82–105
[2021-04-28 05:59] LABS: EOSINOPHILS # (AUTO) 0.1 X10'3 (0-0.9); MEAN PLATELET VOLUME 6.7 FL (7.4-10.4); NEUTROPHILS # (AUTO) 10.2 X10'3 (1.8-7.7); RED CELL DISTRIBUTION WIDTH 21.1 % (11.5-14.5); WHITE BLOOD COUNT 13.4 X10'3 (4.5-11.0)
[2021-04-28 06:00] LABS: BASOPHILS % (AUTO) 0.3 % (0-1); HEMATOCRIT 26.5 % (35.0-45.0); HEMOGLOBIN 8.8 g/dl (12.0-16.0); LYMPHOCYTES # (AUTO) 1.4 X10'3 (1.1-4.8); LYMPHOCYTES % (AUTO) 10.3 % (21-51); MEAN CORPUSCULAR HEMOGLOBIN 25.7 PG (27.0-31.0); MEAN CORPUSCULAR HGB CONC 33.1 g/dL (33.0-36.5); MEAN CORPUSCULAR VOLUME 77.8 FL (78-98); MONOCYTES # (AUTO) 1.6 X10'3 (0-0.9); NEUTROPHILS % (AUTO) 76.4 % (42-75); PLATELET COUNT 815 X10'3 (140-440); RED BLOOD COUNT 3.41 X10'6 (4.20-5.60)
[2021-04-28 06:20] LABS: ALANINE AMINOTRANSFERASE 16 U/L (12-78); ALBUMIN 1.5 G/DL (3.4-5.0); ALBUMIN/GLOBULIN RATIO 0.3 (1.1-1.5); ALKALINE PHOSPHATASE 202 IU/L (46-116); ANION GAP 8 (8-16); ASPARTATE AMINO TRANSFERASE 25 U/L (10-37); BILIRUBIN,TOTAL 0.3 MG/DL (0.1-1.0); BLOOD UREA NITROGEN 13 MG/DL (7-18); BUN/CREATININE RATIO 13.7 (6.6-38.0); CALCIUM 8.3 MG/DL (8.5-10.1); CHLORIDE 102 MMOL/L (99-107); CREATININE 0.95 MG/DL (0.40-0.90); GLUCOSE 103 MG/DL (70-104); POTASSIUM 4.1 MMOL/L (3.5-5.1); SODIUM 137 MMOL/L (135-145); TOTAL CARBON DIOXIDE 26.8 MMOL/L (24-32); TOTAL PROTEIN 6.8 G/DL (6.4-8.2); eGFR 64 ML/MIN
[2021-04-28] MEDS: acetaminophen w/codeine (30MG) #3 tablet PO PRN ×3 (06:30→19:59)
[2021-04-28] MEDS: hydrALAZINE 20mg/ml inj. IV PRN (06:31)
[2021-04-28] MEDS: vancomycin/NS 1 GM ADD-VANTAGE 250 ML IV SCH ×2 (06:54→20:03)
[2021-04-28 07:36] LABS: ANISOCYTOSIS 3+; MICROCYTOSIS 1+; PLATELET ESTIMATE INCREASED; POLYCHROMASIA FEW; TEAR DROP CELLS FEW; TOTAL CELLS COUNTED 100
[2021-04-28 07:37] LABS: HYPOCHROMASIA 1+; STOMATOCYTES 1+
[2021-04-28] MEDS: Dakins solution (1/4 strength) 473ml solution TP SCH ×2 (08:00→20:00)
[2021-04-28] MEDS: K and/or MAG REPLACEMENT MC SCH ×2 (08:00→20:00)
[2021-04-28] MEDS: JUVEN Shake w/Arg/Glut/Ca2+Bmb (Juven 19.3gm) pkt 240ml PO SCH ×2 (08:07→17:30)
[2021-04-28] MEDS ORDERED: labetalol 20mg/4ml (5mg/ml) syringe IV ONE (08:30)
[2021-04-28] MEDS: fluconazole/NS 400mg/200ml bag 200 ML IV SCH (08:31)
[2021-04-28] MEDS: meropenem inj 1 GM in normal saline 100ml IV soln 100 ML IV SCH ×2 (08:31→23:08)
[2021-04-28] MEDS: furosemide 20 MG/2 ML vial IV SCH (08:31)
[2021-04-28] MEDS: pantoprazole 40 MG vial IV SCH (08:31)
[2021-04-28] MEDS: lactobacillus rhamnosus 10,000 MMU CELLS/CAPSULE PO SCH ×2 (08:32→19:59)
[2021-04-28] MEDS: acetaminophen 325mg tablet PO PRN (10:23)
--- NOTE | 2021-04-28 11:27 | NUR ---
F/u 04/28: Per MD, pt w/ drainage from abd wound and w/ multiple abd abscesses though pt may not go back to surgery. Pt left w/ open fascia though closed skin per MD. Pt w/ 25-50% intake of Low fiber diet and 50% of Richard shakes since last RD assessment. Noted 1050ml ostomy output 04/27. No new nutrition intervention implemented at this time as pt already receiving multiple additions to meal tray, will continue to monitor. Rec: 1. Continue Low fiber diet as tolerated 2. [place] Richard shake BIDBD; encourage PO 3. Bowel care per rx 4. Weekly wts Addendum: 04/28/21 at [address] Amended: Links added.
[2021-04-28] MEDS ORDERED: labetalol 5mg/ml 20ml inj. IV PRN (11:35)
[2021-04-28] MEDS ORDERED: labetalol 20mg/4ml (5mg/ml) syringe IV PRN (11:40)
--- NOTE | 2021-04-28 14:42 | NUR ---
Patient hypertensive, she declines prn labetalol/hydralazine. Offered bed bath she declined.. Performed pericare, linen change, dressing change. Offer to ambulate she declined.
[2021-04-28] MEDS: enoxaparin 40mg/0.4ml syringe SQ SCH (19:58)
--- NOTE | 2021-04-28 22:00 | NUR ---
Patient in room PCU 3022. I have received report from ICU Alessandro and had the opportunity to ask questions and assume patient care.
[2021-04-29 02:00] VITALS: BP 159/106
[2021-04-29] MEDS: hydrALAZINE 20mg/ml inj. IV PRN (02:24)
[2021-04-29] MEDS: acetaminophen w/codeine (30MG) #3 tablet PO PRN ×4 (03:45→23:43)
--- NOTE | 2021-04-29 05:18 | NUR ---
Pt rm 3022 Neha Cervantes, had BP of 152/105 @ 0230 gave PRN hydralazine, now 0500 BP still 162/106. Please advise. Jade. [phone]
--- NOTE | 2021-04-29 05:19 | NUR ---
Dr Belcher ordered 5mg hydralazine now.
[2021-04-29] MEDS ORDERED: hydrALAZINE 20mg/ml inj. IV ONE (05:20)
[2021-04-29 06:00] VITALS: BP 146/94
--- NOTE | 2021-04-29 06:18 | NUR ---
Patient in room PCU 3022. I have received report from Jade LOPEZ and had the opportunity to ask questions and assume patient care.
--- NOTE | 2021-04-29 06:20 | NUR ---
Problems reprioritized. Patient report given, questions answered & plan of care reviewed with Neyda.
[2021-04-29] MEDS ORDERED: VANCOMYCIN LEVEL IV ONE (06:30)
[2021-04-29 07:16] LABS: VANCOMYCIN,TROUGH 17.4 UG/ML (6.0-14.0)
[2021-04-29] MEDS: meropenem inj 1 GM in normal saline 100ml IV soln 100 ML IV SCH ×2 (07:32→21:26)
[2021-04-29] MEDS: vancomycin/NS 1 GM ADD-VANTAGE 250 ML IV SCH ×2 (07:32→19:15)
[2021-04-29] MEDS: pantoprazole 40 MG vial IV SCH (07:34)
[2021-04-29] MEDS: lactobacillus rhamnosus 10,000 MMU CELLS/CAPSULE PO SCH ×2 (07:35→19:15)
[2021-04-29] MEDS: furosemide 20 MG/2 ML vial IV SCH (07:35)
[2021-04-29] MEDS: Dakins solution (1/4 strength) 473ml solution TP SCH (07:36)
[2021-04-29] MEDS: fluconazole/NS 400mg/200ml bag 200 ML IV SCH (07:46)
[2021-04-29] MEDS: acetaminophen 325mg tablet PO PRN (07:47)
[2021-04-29] MEDS: K and/or MAG REPLACEMENT MC SCH ×2 (08:00→20:00)
[2021-04-29] MEDS: JUVEN Shake w/Arg/Glut/Ca2+Bmb (Juven 19.3gm) pkt 240ml PO SCH ×4 (08:16→22:49)
[2021-04-29 11:00] VITALS: BP 159/90
[2021-04-29 11:10] LABS: BASOPHILS # (AUTO) 0.1 X10'3 (0-0.2); EOSINOPHILS # (AUTO) 0.1 X10'3 (0-0.9); HEMOGLOBIN 8.8 g/dl (12.0-16.0); MONOCYTES # (AUTO) 1.4 X10'3 (0-0.9); NEUTROPHILS # (AUTO) 8.1 X10'3 (1.8-7.7)
[2021-04-29 11:12] LABS: BASOPHILS % (AUTO) 1.3 % (0-1); EOSINOPHILS % (AUTO) 1.2 % (0-6); HEMATOCRIT 28.1 % (35.0-45.0); LYMPHOCYTES # (AUTO) 1.3 X10'3 (1.1-4.8); LYMPHOCYTES % (AUTO) 11.8 % (21-51); MEAN CORPUSCULAR HEMOGLOBIN 24.8 PG (27.0-31.0); MEAN CORPUSCULAR HGB CONC 31.5 g/dL (33.0-36.5); MEAN CORPUSCULAR VOLUME 78.9 FL (78-98); MONOCYTES % (AUTO) 12.8 % (2-12); NEUTROPHILS % (AUTO) 72.9 % (42-75); PLATELET COUNT 789 X10'3 (140-440); RED BLOOD COUNT 3.56 X10'6 (4.20-5.60); RED CELL DISTRIBUTION WIDTH 21.3 % (11.5-14.5); WHITE BLOOD COUNT 11.1 X10'3 (4.5-11.0)
[2021-04-29 11:23] LABS: ALANINE AMINOTRANSFERASE 18 U/L (12-78); ALBUMIN 1.6 G/DL (3.4-5.0); ALBUMIN/GLOBULIN RATIO 0.3 (1.1-1.5); ALKALINE PHOSPHATASE 166 IU/L (46-116); ANION GAP 8 (8-16); ASPARTATE AMINO TRANSFERASE 27 U/L (10-37); BILIRUBIN,TOTAL 0.3 MG/DL (0.1-1.0); BLOOD UREA NITROGEN 11 MG/DL (7-18); BUN/CREATININE RATIO 13.4 (6.6-38.0); CALCIUM 8.3 MG/DL (8.5-10.1); CHLORIDE 103 MMOL/L (99-107); CREATININE 0.82 MG/DL (0.40-0.90); GLUCOSE 94 MG/DL (70-104); POTASSIUM 4.3 MMOL/L (3.5-5.1); SODIUM 138 MMOL/L (135-145); TOTAL CARBON DIOXIDE 26.9 MMOL/L (24-32); TOTAL PROTEIN 6.7 G/DL (6.4-8.2); eGFR 75 ML/MIN
--- NOTE | 2021-04-29 11:35 | NUR ---
Dr. Campoverde will order, a CT of the abdomen just, before discharge. He, does not want another, doctor to place a CT order prior to discharge. He will then decide her antibiotic treatment at discharge. Dr. Larson made aware.
--- NOTE | 2021-04-29 11:40 | NUR ---
Paged Dr. Larson PAGER ID: [phone] MESSAGE: [facility] [address] Neha Cervantes Critical Lab MDRO E-Coli in Abdomen. Is she on the correct antibiotics? Marylin LOPEZ [phone]
[2021-04-29 11:47] LABS: ANISOCYTOSIS 3+; HYPOCHROMASIA 1+; MICROCYTOSIS 1+; PLATELET ESTIMATE INCREASED; TOTAL CELLS COUNTED 100
[2021-04-29 11:48] LABS: POLYCHROMASIA FEW
--- NOTE | 2021-04-29 12:37 | NUR ---
Paged Dr. Larson PAGER ID: [phone] MESSAGE: [facility] [address] Neha Cervantes Critical has amaya and needs order for amaya protocol. May I place order? Please advise Marylin LOPEZ [phone]
[2021-04-29 15:00] VITALS: BP 151/76
--- NOTE | 2021-04-29 15:30 | NUR ---
Paged Dr. Larson PAGER ID: [phone] MESSAGE: [facility] [address] Neha Cervantes would like to talk with you directly about her blood pressure medications she takes. (metoprolol 50mg, Losartan 25mg and chlorthalidone 25mg) at HS. [phone] Marylin LOPEZ
--- NOTE | 2021-04-29 15:33 | NUR ---
Dr Larson called back and he will look into the patients high blood pressure medication.
[2021-04-29 18:00] VITALS: BP 151/105
--- NOTE | 2021-04-29 18:27 | NUR ---
Problems reprioritized. Patient report given, questions answered & plan of care reviewed with Jade LOPEZ.
--- NOTE | 2021-04-29 18:30 | NUR ---
Patient in room PCU 3022. I have received report from Neyda and had the opportunity to ask questions and assume patient care.
[2021-04-29] MEDS: losartan 25mg tablet PO SCH (19:15)
[2021-04-29] MEDS: chlorthalidone 25mg tablet PO SCH (19:16)
[2021-04-29] MEDS: metoprolol succinate 25mg (24-HOUR) SR. Tablet PO SCH (19:17)
[2021-04-29] MEDS: enoxaparin 40mg/0.4ml syringe SQ SCH (19:18)
--- NOTE | 2021-04-29 20:26 | NUR ---
Patient received tylenol with codeine per request. Stated pain was at a 7/10.
[2021-04-29 22:00] VITALS: BP 156/85
[2021-04-30] MEDS: meropenem inj 1 GM in normal saline 100ml IV soln 100 ML IV SCH ×3 (00:25→16:01)
[2021-04-30 02:00] VITALS: BP 169/86
--- NOTE | 2021-04-30 04:12 | NUR ---
Pt BP 169/86 on right calf, giving PRN hydralazine 10mg, per MD orders.
[2021-04-30] MEDS: hydrALAZINE 20mg/ml inj. IV PRN (04:18)
--- NOTE | 2021-04-30 05:05 | NUR ---
Pt BP 150/99 @ 0505 1hr after 10mg of hydralazine.
--- NOTE | 2021-04-30 06:02 | NUR ---
Patient in room PCU 3022. I have received report from Jade LOPEZ and had the opportunity to ask questions and assume patient care.
--- NOTE | 2021-04-30 06:03 | NUR ---
Problems reprioritized. Patient report given, questions answered & plan of care reviewed with Neyda.
[2021-04-30 06:16] LABS: BASOPHILS % (AUTO) 0.5 % (0-1); EOSINOPHILS # (AUTO) 0.1 X10'3 (0-0.9); EOSINOPHILS % (AUTO) 1.1 % (0-6); HEMATOCRIT 26.6 % (35.0-45.0); HEMOGLOBIN 8.9 g/dl (12.0-16.0); LYMPHOCYTES # (AUTO) 1.4 X10'3 (1.1-4.8); LYMPHOCYTES % (AUTO) 14.8 % (21-51); MEAN CORPUSCULAR HEMOGLOBIN 25.6 PG (27.0-31.0); MEAN CORPUSCULAR HGB CONC 33.3 g/dL (33.0-36.5); MEAN CORPUSCULAR VOLUME 76.9 FL (78-98); MEAN PLATELET VOLUME 6.4 FL (7.4-10.4); MONOCYTES % (AUTO) 10.9 % (2-12); NEUTROPHILS # (AUTO) 6.8 X10'3 (1.8-7.7); NEUTROPHILS % (AUTO) 72.7 % (42-75); PLATELET COUNT 705 X10'3 (140-440); RED BLOOD COUNT 3.46 X10'6 (4.20-5.60); RED CELL DISTRIBUTION WIDTH 21.5 % (11.5-14.5); WHITE BLOOD COUNT 9.4 X10'3 (4.5-11.0)
[2021-04-30 06:48] LABS: ALANINE AMINOTRANSFERASE 17 U/L (12-78); ALBUMIN 1.5 G/DL (3.4-5.0); ALBUMIN/GLOBULIN RATIO 0.3 (1.1-1.5); ALKALINE PHOSPHATASE 158 IU/L (46-116); ANION GAP 8 (8-16); ASPARTATE AMINO TRANSFERASE 23 U/L (10-37); BILIRUBIN,TOTAL 0.3 MG/DL (0.1-1.0); BLOOD UREA NITROGEN 11 MG/DL (7-18); CHLORIDE 103 MMOL/L (99-107); GLUCOSE 107 MG/DL (70-104); POTASSIUM 4.1 MMOL/L (3.5-5.1); SODIUM 137 MMOL/L (135-145); TOTAL CARBON DIOXIDE 26.5 MMOL/L (24-32); TOTAL PROTEIN 6.9 G/DL (6.4-8.2); TRIGLYCERIDES 183 MG/DL (20-135); eGFR 60 ML/MIN
[2021-04-30 06:55] LABS: CALCIUM 8.5 MG/DL (8.5-10.1)
[2021-04-30 07:00] VITALS: BP 163/107
[2021-04-30] MEDS: fluconazole/NS 400mg/200ml bag 200 ML IV SCH (07:44)
[2021-04-30] MEDS: vancomycin/NS 1 GM ADD-VANTAGE 250 ML IV SCH ×2 (07:44→21:31)
[2021-04-30] MEDS: lactobacillus rhamnosus 10,000 MMU CELLS/CAPSULE PO SCH ×2 (07:45→21:34)
[2021-04-30] MEDS: furosemide 20 MG/2 ML vial IV SCH (07:45)
[2021-04-30] MEDS: acetaminophen w/codeine (30MG) #3 tablet PO PRN ×4 (07:45→21:32)
[2021-04-30] MEDS: pantoprazole 40 MG vial IV SCH (07:45)
[2021-04-30] MEDS: K and/or MAG REPLACEMENT MC SCH ×2 (08:00→20:00)
[2021-04-30 11:00] VITALS: BP 131/79
[2021-04-30 15:00] VITALS: BP 129/75
[2021-04-30 18:00] VITALS: BP 144/91
--- NOTE | 2021-04-30 18:31 | NUR ---
Problems reprioritized. Patient report given, questions answered & plan of care reviewed with Brenda LOPEZ.
[2021-04-30] MEDS ORDERED: diatr meglu/diatrizoate 30ml oral sol.-(3 dose) bottle PO SCH (21:00)
[2021-04-30] MEDS: enoxaparin 40mg/0.4ml syringe SQ SCH (21:32)
[2021-04-30] MEDS: metoprolol succinate 25mg (24-HOUR) SR. Tablet PO SCH (21:33)
[2021-04-30] MEDS: chlorthalidone 25mg tablet PO SCH (21:33)
[2021-04-30] MEDS: losartan 25mg tablet PO SCH (21:33)
[2021-04-30 22:00] VITALS: BP 137/94
--- NOTE | 2021-05-01 00:37 | NUR ---
Dressing changed per order. wound looks appropriate and without signs of infection. pt had minimal pain at wound site.
[2021-05-01] MEDS: meropenem inj 1 GM in normal saline 100ml IV soln 100 ML IV SCH ×3 (00:42→15:11)
[2021-05-01 02:00] VITALS: BP 164/110
[2021-05-01] MEDS: acetaminophen w/codeine (30MG) #3 tablet PO PRN ×4 (02:39→22:39)
[2021-05-01] MEDS: hydrALAZINE 20mg/ml inj. IV PRN (02:40)
[2021-05-01 06:00] VITALS: BP 133/88
[2021-05-01 06:15] LABS: EOSINOPHILS # (AUTO) 0.1 X10'3 (0-0.9); HEMOGLOBIN 9.2 g/dl (12.0-16.0); LYMPHOCYTES # (AUTO) 1.4 X10'3 (1.1-4.8); RED CELL DISTRIBUTION WIDTH 21.2 % (11.5-14.5)
[2021-05-01 06:17] LABS: BASOPHILS % (AUTO) 0.3 % (0-1); EOSINOPHILS % (AUTO) 0.8 % (0-6); HEMATOCRIT 27.2 % (35.0-45.0); LYMPHOCYTES % (AUTO) 13.9 % (21-51); MEAN CORPUSCULAR HEMOGLOBIN 25.6 PG (27.0-31.0); MEAN CORPUSCULAR HGB CONC 33.7 g/dL (33.0-36.5); MEAN PLATELET VOLUME 6.3 FL (7.4-10.4); MONOCYTES % (AUTO) 10.3 % (2-12); NEUTROPHILS # (AUTO) 7.5 X10'3 (1.8-7.7); NEUTROPHILS % (AUTO) 74.7 % (42-75); PLATELET COUNT 657 X10'3 (140-440); RED BLOOD COUNT 3.58 X10'6 (4.20-5.60)
[2021-05-01 06:33] LABS: ALANINE AMINOTRANSFERASE 19 U/L (12-78); ALBUMIN 1.6 G/DL (3.4-5.0); ALBUMIN/GLOBULIN RATIO 0.3 (1.1-1.5); ALKALINE PHOSPHATASE 144 IU/L (46-116); ANION GAP 6 (8-16); ASPARTATE AMINO TRANSFERASE 23 U/L (10-37); BILIRUBIN,TOTAL 0.3 MG/DL (0.1-1.0); BLOOD UREA NITROGEN 14 MG/DL (7-18); BUN/CREATININE RATIO 14.9 (6.6-38.0); CALCIUM 8.9 MG/DL (8.5-10.1); CHLORIDE 99 MMOL/L (99-107); CREATININE 0.94 MG/DL (0.40-0.90); GLUCOSE 112 MG/DL (70-104); SODIUM 132 MMOL/L (135-145); TOTAL CARBON DIOXIDE 26.9 MMOL/L (24-32); TRIGLYCERIDES 194 MG/DL (20-135); eGFR 64 ML/MIN
[2021-05-01 07:31] LABS: PLATELET ESTIMATE INCREASED; TOTAL CELLS COUNTED 100
[2021-05-01 07:32] LABS: ANISOCYTOSIS 3+; MICROCYTOSIS 1+
[2021-05-01 07:35] LABS: HYPOCHROMASIA 1+
[2021-05-01] MEDS: furosemide 20 MG/2 ML vial IV SCH (07:44)
[2021-05-01] MEDS: pantoprazole 40 MG vial IV SCH (07:44)
[2021-05-01] MEDS: lactobacillus rhamnosus 10,000 MMU CELLS/CAPSULE PO SCH ×2 (07:44→19:49)
[2021-05-01] MEDS: acetaminophen 325mg tablet PO PRN (07:50)
[2021-05-01] MEDS: JUVEN Shake w/Arg/Glut/Ca2+Bmb (Juven 19.3gm) pkt 240ml PO SCH ×3 (07:51→21:21)
[2021-05-01] MEDS: vancomycin/NS 1 GM ADD-VANTAGE 250 ML IV SCH ×2 (07:51→19:48)
[2021-05-01] MEDS: K and/or MAG REPLACEMENT MC SCH ×2 (07:52→19:56)
[2021-05-01 11:00] VITALS: BP 128/75
--- NOTE | 2021-05-01 11:42 | NUR ---
Spoke with Pharmacist Jose C and he changed the Gastrografin to be given tonight at 05/01/21 at [address] Sp[address] with [address] and the CT of abdomen and pelvis will take place 05/02/21 in am.
--- NOTE | 2021-05-01 11:46 | NUR ---
Paged Dr. Munoz PAGER ID: [phone] MESSAGE: [facility] 0[address] Solomon, Spoke with Pharmacist Jose C and he changed the Gastrografin to be given tonight at 05/01/[address] with [address] and the CT of abdomen and pelvis will take place 05/02/21 in am. U [id number] Marylin LOPEZ
--- NOTE | 2021-05-01 14:21 | NUR ---
Reassessment: Pt continues with mostly 25-50% PO intake of meals and pt documented to be refusing most Richard shakes since 04/26 however did consume 50% of ONS with breakfast this morning. Pt seen at bedside. Food preferences have been obtained and d/w dietary, see below. Pt reports she normally doesn't eat breakfast and agrees to ONS frequency to be changed from BIDBD to BIDLD, d/w clinical pharmacist to update order in EMR. RD encouraged PO intake and further explained that the Richard shake is for wound healing. Pt verbalizes understanding and states her appetite is low however her daughter is bringing in protein water for her as well as additional food. RD discussed additional ONS options during admit such as Ensure however pt declines stating she doesn't like Ensure. Pt provided with RD contact information and encouraged pt to reach out for additional food preferences. LBM 05/01 documented with 75 mL stool output so far with 200 mL stool output 04/29 per I&O. Will continue to follow. Recommendations: 1. Continue low fiber diet 2. Bath Richard shake BIDLD 3. [place] food preferences: Juice TID, soft fruit TID, crackers TID; bagel with cream cheese every other breakfast; alternate yogurt and cottage cheese WL, sandwiches for lunches; soups BIDLD; no eggs to eat; No Ensure as pt dislikes; Allow food from home to optimize PO intake 4. Bowel care per rx 5. Weekly scaled weights Addendum: 05/01/21 at [address] Amended: Links added.
[2021-05-01 18:00] VITALS: BP 127/89
--- NOTE | 2021-05-01 18:17 | NUR ---
Problems reprioritized. Patient report given, questions answered & plan of care reviewed with Brenda LOPEZ.
[2021-05-01] MEDS: metoprolol succinate 25mg (24-HOUR) SR. Tablet PO SCH (19:49)
[2021-05-01] MEDS: losartan 25mg tablet PO SCH (19:50)
[2021-05-01] MEDS: enoxaparin 40mg/0.4ml syringe SQ SCH (19:50)
[2021-05-01] MEDS: chlorthalidone 25mg tablet PO SCH (19:50)
[2021-05-01] MEDS: diatr meglu/diatrizoate 30ml oral sol.-(3 dose) bottle PO SCH (21:57)
[2021-05-01 22:00] VITALS: BP 142/91
[2021-05-02] VITALS (8 sets, daily range): BP systolic 113–144; BP diastolic 78–95
[2021-05-02] MEDS: meropenem inj 1 GM in normal saline 100ml IV soln 100 ML IV SCH ×3 (00:39→16:00)
--- NOTE | 2021-05-02 01:08 | NUR ---
dressing changed per MD orders. wound looked appropriate and without signs of infection. moderate serous drainage. minimal pain expressed by patient.
[2021-05-02] MEDS: acetaminophen w/codeine (30MG) #3 tablet PO PRN ×4 (05:07→22:50)
[2021-05-02 06:01] LABS: BASOPHILS % (AUTO) 0.3 % (0-1); EOSINOPHILS # (AUTO) 0.1 X10'3 (0-0.9); EOSINOPHILS % (AUTO) 1.1 % (0-6); HEMATOCRIT 27.1 % (35.0-45.0); LYMPHOCYTES # (AUTO) 1.3 X10'3 (1.1-4.8); LYMPHOCYTES % (AUTO) 15.5 % (21-51); MEAN CORPUSCULAR HEMOGLOBIN 25.5 PG (27.0-31.0); MEAN CORPUSCULAR HGB CONC 33.3 g/dL (33.0-36.5); MEAN CORPUSCULAR VOLUME 76.4 FL (78-98); MEAN PLATELET VOLUME 6.2 FL (7.4-10.4); MONOCYTES # (AUTO) 0.8 X10'3 (0-0.9); MONOCYTES % (AUTO) 9.5 % (2-12); NEUTROPHILS # (AUTO) 6.3 X10'3 (1.8-7.7); NEUTROPHILS % (AUTO) 73.6 % (42-75); PLATELET COUNT 565 X10'3 (140-440); RED BLOOD COUNT 3.54 X10'6 (4.20-5.60); RED CELL DISTRIBUTION WIDTH 21.2 % (11.5-14.5); WHITE BLOOD COUNT 8.5 X10'3 (4.5-11.0)
[2021-05-02 06:29] LABS: ALANINE AMINOTRANSFERASE 16 U/L (12-78); ALBUMIN 1.6 G/DL (3.4-5.0); ALBUMIN/GLOBULIN RATIO 0.3 (1.1-1.5); ALKALINE PHOSPHATASE 133 IU/L (46-116); ANION GAP 7 (8-16); ASPARTATE AMINO TRANSFERASE 24 U/L (10-37); BILIRUBIN,TOTAL 0.3 MG/DL (0.1-1.0); BLOOD UREA NITROGEN 15 MG/DL (7-18); BUN/CREATININE RATIO 17.4 (6.6-38.0); CALCIUM 8.5 MG/DL (8.5-10.1); CHLORIDE 102 MMOL/L (99-107); CREATININE 0.86 MG/DL (0.40-0.90); GLUCOSE 98 MG/DL (70-104); POTASSIUM 3.9 MMOL/L (3.5-5.1); SODIUM 136 MMOL/L (135-145); TOTAL CARBON DIOXIDE 27.1 MMOL/L (24-32); eGFR 71 ML/MIN
[2021-05-02 07:06] LABS: ANISOCYTOSIS 3+; HYPOCHROMASIA 1+; MICROCYTOSIS 1+; PLATELET ESTIMATE INCREASED; TOTAL CELLS COUNTED 100
[2021-05-02] MEDS: diatr meglu/diatrizoate 30ml oral sol.-(3 dose) bottle PO SCH ×2 (07:08→21:00)
[2021-05-02] MEDS: K and/or MAG REPLACEMENT MC SCH ×2 (08:00→20:00)
[2021-05-02] MEDS: vancomycin/NS 1 GM ADD-VANTAGE 250 ML IV SCH ×2 (08:19→22:49)
[2021-05-02] MEDS: pantoprazole 40 MG vial IV SCH (08:19)
[2021-05-02] MEDS: lactobacillus rhamnosus 10,000 MMU CELLS/CAPSULE PO SCH ×2 (08:20→21:19)
[2021-05-02] MEDS: furosemide 20 MG/2 ML vial IV SCH (08:20)
--- NOTE | 2021-05-02 09:56 | NUR ---
PT was paged regarding . pt name costa campos PCU room 22, has an order for gastrografin 2 doses has given already. does she has an order for abdominal ct scan ordered today . JESSICA BROUSSARD [phone]
[2021-05-02] MEDS: JUVEN Shake w/Arg/Glut/Ca2+Bmb (Juven 19.3gm) pkt 240ml PO SCH (17:30)
[2021-05-02] MEDS ORDERED: diatr meglu/diatrizoate 30ml oral sol.-(3 dose) bottle PO SCH (21:00)
[2021-05-02] MEDS: enoxaparin 40mg/0.4ml syringe SQ SCH (21:14)
[2021-05-02] MEDS: chlorthalidone 25mg tablet PO SCH (21:16)
[2021-05-02] MEDS: metoprolol succinate 25mg (24-HOUR) SR. Tablet PO SCH (21:16)
[2021-05-02] MEDS: losartan 25mg tablet PO SCH (21:18)
[2021-05-03] MEDS: meropenem inj 1 GM in normal saline 100ml IV soln 100 ML IV SCH ×3 (01:05→16:29)
[2021-05-03 02:00] VITALS: BP 131/82
[2021-05-03] MEDS: acetaminophen w/codeine (30MG) #3 tablet PO PRN ×4 (04:13→19:43)
[2021-05-03 06:00] VITALS: BP 123/84
--- NOTE | 2021-05-03 06:25 | NUR ---
Problems reprioritized. Patient report given, questions answered & plan of care reviewed with JESSICA Miranda.
[2021-05-03 06:49] LABS: BASOPHILS % (AUTO) 0.5 % (0-1); EOSINOPHILS # (AUTO) 0.1 X10'3 (0-0.9); HEMATOCRIT 27.3 % (35.0-45.0); LYMPHOCYTES # (AUTO) 1.1 X10'3 (1.1-4.8); LYMPHOCYTES % (AUTO) 12.6 % (21-51); MEAN CORPUSCULAR HEMOGLOBIN 25.6 PG (27.0-31.0); MEAN CORPUSCULAR VOLUME 77.4 FL (78-98); MEAN PLATELET VOLUME 7.1 FL (7.4-10.4); MONOCYTES % (AUTO) 11.3 % (2-12); NEUTROPHILS # (AUTO) 6.5 X10'3 (1.8-7.7); NEUTROPHILS % (AUTO) 74.6 % (42-75); PLATELET COUNT 507 X10'3 (140-440); RED BLOOD COUNT 3.53 X10'6 (4.20-5.60); RED CELL DISTRIBUTION WIDTH 20.9 % (11.5-14.5); WHITE BLOOD COUNT 8.7 X10'3 (4.5-11.0)
[2021-05-03 07:12] LABS: ALANINE AMINOTRANSFERASE 20 U/L (12-78); ALBUMIN 1.6 G/DL (3.4-5.0); ALBUMIN/GLOBULIN RATIO 0.3 (1.1-1.5); ALKALINE PHOSPHATASE 132 IU/L (46-116); ANION GAP 10 (8-16); ASPARTATE AMINO TRANSFERASE 33 U/L (10-37); BILIRUBIN,TOTAL 0.3 MG/DL (0.1-1.0); BLOOD UREA NITROGEN 18 MG/DL (7-18); BUN/CREATININE RATIO 20.7 (6.6-38.0); CALCIUM 8.8 MG/DL (8.5-10.1); CHLORIDE 100 MMOL/L (99-107); CREATININE 0.87 MG/DL (0.40-0.90); GLUCOSE 115 MG/DL (70-104); SODIUM 136 MMOL/L (135-145); TOTAL CARBON DIOXIDE 25.6 MMOL/L (24-32); TOTAL PROTEIN 7.4 G/DL (6.4-8.2); eGFR 70 ML/MIN
[2021-05-03 07:13] LABS: POTASSIUM 4.2 MMOL/L (3.5-5.1)
[2021-05-03 07:27] LABS: ANISOCYTOSIS 3+; PLATELET ESTIMATE INCREASED; TOTAL CELLS COUNTED 100
[2021-05-03 07:28] LABS: LARGE PLATELETS FEW; MICROCYTOSIS 1+
[2021-05-03] MEDS: K and/or MAG REPLACEMENT MC SCH ×2 (08:00→18:46)
[2021-05-03] MEDS: furosemide 20 MG/2 ML vial IV SCH (08:47)
[2021-05-03] MEDS: lactobacillus rhamnosus 10,000 MMU CELLS/CAPSULE PO SCH ×2 (08:47→19:45)
[2021-05-03] MEDS: pantoprazole 40 MG vial IV SCH (08:47)
[2021-05-03] MEDS: vancomycin/NS 1 GM ADD-VANTAGE 250 ML IV SCH ×2 (08:48→19:44)
[2021-05-03 11:00] VITALS: BP 133/90
[2021-05-03] MEDS: JUVEN Shake w/Arg/Glut/Ca2+Bmb (Juven 19.3gm) pkt 240ml PO SCH ×2 (12:30→17:30)
--- NOTE | 2021-05-03 13:36 | NUR ---
pt paged regarding pt costa campos in PCU room 22, is asking and concerned about the DARIO drainage, is there any way to contact IR about the issue . BOBO LOPEZ, [phone]
[2021-05-03] MEDS ORDERED: aspirin 81mg, enteric-coated 1 TAB TABLET.DR PO ONE (14:25)
[2021-05-03 15:00] VITALS: BP 119/85
[2021-05-03 18:00] VITALS: BP 134/84
[2021-05-03] MEDS: metoprolol succinate 25mg (24-HOUR) SR. Tablet PO SCH (19:42)
[2021-05-03] MEDS: losartan 25mg tablet PO SCH (19:43)
[2021-05-03] MEDS: chlorthalidone 25mg tablet PO SCH (19:43)
[2021-05-03] MEDS: enoxaparin 40mg/0.4ml syringe SQ SCH (19:45)
[2021-05-03 22:00] VITALS: BP 127/82
[2021-05-04] MEDS: meropenem inj 1 GM in normal saline 100ml IV soln 100 ML IV SCH ×3 (00:10→15:50)
[2021-05-04] MEDS: acetaminophen w/codeine (30MG) #3 tablet PO PRN ×4 (00:55→21:13)
[2021-05-04 02:00] VITALS: BP 115/77
[2021-05-04 06:00] VITALS: BP 123/84
[2021-05-04 06:41] LABS: BASOPHILS % (AUTO) 0.3 % (0-1); EOSINOPHILS # (AUTO) 0.1 X10'3 (0-0.9); EOSINOPHILS % (AUTO) 1.7 % (0-6); HEMATOCRIT 26.9 % (35.0-45.0); LYMPHOCYTES # (AUTO) 1.7 X10'3 (1.1-4.8); LYMPHOCYTES % (AUTO) 19.7 % (21-51); MEAN CORPUSCULAR HEMOGLOBIN 25.5 PG (27.0-31.0); MEAN CORPUSCULAR HGB CONC 33.5 g/dL (33.0-36.5); MEAN PLATELET VOLUME 6.5 FL (7.4-10.4); MONOCYTES # (AUTO) 0.9 X10'3 (0-0.9); MONOCYTES % (AUTO) 10.3 % (2-12); NEUTROPHILS # (AUTO) 5.9 X10'3 (1.8-7.7); PLATELET COUNT 512 X10'3 (140-440); RED BLOOD COUNT 3.54 X10'6 (4.20-5.60); RED CELL DISTRIBUTION WIDTH 21.5 % (11.5-14.5); WHITE BLOOD COUNT 8.7 X10'3 (4.5-11.0)
--- NOTE | 2021-05-04 06:43 | NUR ---
Problems reprioritized. Patient report given, questions answered & plan of care reviewed with Megan. LOPEZ.
[2021-05-04 06:55] LABS: ALANINE AMINOTRANSFERASE 21 U/L (12-78); ALBUMIN 1.7 G/DL (3.4-5.0); ALBUMIN/GLOBULIN RATIO 0.3 (1.1-1.5); ALKALINE PHOSPHATASE 139 IU/L (46-116); ANION GAP 10 (8-16); ASPARTATE AMINO TRANSFERASE 31 U/L (10-37); BILIRUBIN,TOTAL 0.3 MG/DL (0.1-1.0); BLOOD UREA NITROGEN 15 MG/DL (7-18); BUN/CREATININE RATIO 17.4 (6.6-38.0); CALCIUM 8.8 MG/DL (8.5-10.1); CHLORIDE 101 MMOL/L (99-107); CREATININE 0.86 MG/DL (0.40-0.90); GLUCOSE 99 MG/DL (70-104); POTASSIUM 4.9 MMOL/L (3.5-5.1); SODIUM 138 MMOL/L (135-145); TOTAL CARBON DIOXIDE 27.5 MMOL/L (24-32); TOTAL PROTEIN 7.6 G/DL (6.4-8.2); eGFR 71 ML/MIN
[2021-05-04] MEDS: K and/or MAG REPLACEMENT MC SCH ×2 (08:00→20:00)
[2021-05-04 08:02] LABS: ANISOCYTOSIS 3+; HYPOCHROMASIA 1+; MICROCYTOSIS 1+; PLATELET ESTIMATE INCREASED; POLYCHROMASIA 1+; TOTAL CELLS COUNTED 100
[2021-05-04] MEDS: pantoprazole 40 MG vial IV SCH (08:25)
[2021-05-04] MEDS: furosemide 20 MG/2 ML vial IV SCH (08:28)
[2021-05-04] MEDS: lactobacillus rhamnosus 10,000 MMU CELLS/CAPSULE PO SCH ×2 (08:36→21:28)
[2021-05-04] MEDS: vancomycin/NS 1 GM ADD-VANTAGE 250 ML IV SCH ×2 (09:05→19:00)
--- NOTE | 2021-05-04 11:05 | NUR ---
Reassessment: Pt continues with similar PO intake, avg 32% x 9 meals on low fiber diet and 60% of last 2 Richard smoothies. Pt noted to also have family bring in food for pt. Pt receiving multiple nutrition interventions on meal trays to optimize intake. Noted 400ml ostomy output 05/02. Will continue to monitor. Recommendations: 1. Continue low fiber diet 2. [place] Richard shake BIDLD 3. [place] food preferences: Juice TID, soft fruit TID, crackers TID; bagel with cream cheese every other breakfast; alternate yogurt and cottage cheese WL, sandwiches for lunches; soups BIDLD; no eggs to eat; No Ensure as pt dislikes; Allow food from home to optimize PO intake 4. Bowel care per rx 5. Weekly scaled weights Addendum: 05/04/21 at [address] Amended: Links added.
[2021-05-04 12:00] VITALS: BP 108/78
[2021-05-04] MEDS: JUVEN Shake w/Arg/Glut/Ca2+Bmb (Juven 19.3gm) pkt 240ml PO SCH ×2 (12:30→18:04)
[2021-05-04 15:00] VITALS: BP 113/76
[2021-05-04] MEDS: enoxaparin 40mg/0.4ml syringe SQ SCH (15:30)
[2021-05-04] MEDS ORDERED: VANCOMYCIN LEVEL IV ONE (18:30)
--- NOTE | 2021-05-04 18:30 | NUR ---
Report given to traveler RN, all questions answered. Pt will need new IV, PIV infiltrated just prior to shift change. pt is hard stick but NOC RN aware and will follow up on IV. Pt will be NPO after MN for surgery tomorrow.
[2021-05-04 20:00] VITALS: BP_SYST 119; BP_SYST 124; BP_SYST 128; BP_SYST 136; BP_DIAS 82; BP_DIAS 88; BP_DIAS 91; BP_DIAS 96
--- NOTE | 2021-05-04 20:04 | NUR ---
BRETT CERVANTES .8, CONSULTED WITH PHARMACIST JULIETA, AND HE SAID TO HOLD DOSE FOR BASHIR
[2021-05-04] MEDS: chlorthalidone 25mg tablet PO SCH (21:18)
[2021-05-04] MEDS: metoprolol succinate 25mg (24-HOUR) SR. Tablet PO SCH (21:18)
[2021-05-04] MEDS: losartan 25mg tablet PO SCH (21:19)
[2021-05-05] VITALS (26 sets, daily range): BP systolic 111–148; BP diastolic 62–98
[2021-05-05] MEDS: acetaminophen w/codeine (30MG) #3 tablet PO PRN ×5 (01:39→23:33)
[2021-05-05] MEDS: meropenem inj 1 GM in normal saline 100ml IV soln 100 ML IV SCH ×3 (01:39→16:00)
--- NOTE | 2021-05-05 06:24 | NUR ---
REPORT GIVEN TO YANICK/RN
[2021-05-05] MEDS: vancomycin inj. 750 MG in normal saline 250ml IV soln 250 ML IV SCH ×2 (07:00→20:45)
--- NOTE | 2021-05-05 07:06 | NUR ---
Patient in room PCU 3022. I have received report from Barbara LOPEZ and had the opportunity to ask questions and assume patient care.
[2021-05-05] MEDS: lactobacillus rhamnosus 10,000 MMU CELLS/CAPSULE PO SCH ×2 (07:59→20:43)
[2021-05-05] MEDS: K and/or MAG REPLACEMENT MC SCH ×2 (08:00→20:00)
[2021-05-05] MEDS: pantoprazole 40 MG vial IV SCH (08:01)
[2021-05-05 08:31] LABS: BASOPHILS % (AUTO) 0.3 % (0-1); EOSINOPHILS # (AUTO) 0.1 X10'3 (0-0.9); EOSINOPHILS % (AUTO) 1.4 % (0-6); LYMPHOCYTES # (AUTO) 1.5 X10'3 (1.1-4.8); LYMPHOCYTES % (AUTO) 19.1 % (21-51); MEAN CORPUSCULAR HEMOGLOBIN 25.4 PG (27.0-31.0); MEAN CORPUSCULAR HGB CONC 32.9 g/dL (33.0-36.5); MEAN CORPUSCULAR VOLUME 77.2 FL (78-98); MEAN PLATELET VOLUME 6.5 FL (7.4-10.4); MONOCYTES # (AUTO) 0.9 X10'3 (0-0.9); MONOCYTES % (AUTO) 11.9 % (2-12); NEUTROPHILS # (AUTO) 5.2 X10'3 (1.8-7.7); NEUTROPHILS % (AUTO) 67.3 % (42-75); PRE OP HEMATOCRIT 28.1 % (35.0-45.0); PRE OP PLATELET COUNT 535 X10'3 (140-440); RED BLOOD COUNT 3.64 X10'6 (4.20-5.60); RED CELL DISTRIBUTION WIDTH 21.2 % (11.5-14.5)
[2021-05-05 08:32] LABS: PRE OP HEMOGLOBIN 9.2 g/dL (12.0-16.0)
[2021-05-05 08:36] LABS: ALBUMIN 1.9 G/DL (3.4-5.0); ALBUMIN/GLOBULIN RATIO 0.3 (1.1-1.5); ALKALINE PHOSPHATASE 151 IU/L (46-116); BLOOD UREA NITROGEN 16 MG/DL (7-18); BUN/CREATININE RATIO 19.3 (6.6-38.0); CALCIUM 8.9 MG/DL (8.5-10.1); CHLORIDE 102 MMOL/L (99-107); CREATININE 0.83 MG/DL (0.40-0.90); PRE OP ALT 22 U/L (30-65); PRE OP ANION GAP 8 (8-16); PRE OP AST 25 U/L (10-37); PRE OP BILIRUB, TOTAL 0.4 MG/DL (0.0-1.0); PRE OP GLUCOSE 101 MG/DL (70-104); PRE OP POTASSIUM 4.2 MMOL/L (3.4-5.1); PRE OP SODIUM 138 MMOL/L (135-145); TOTAL CARBON DIOXIDE 28.2 MMOL/L (24-32); TOTAL PROTEIN 7.9 G/DL (6.4-8.2); eGFR 74 ML/MIN
[2021-05-05] MEDS ORDERED: ringers solution, lacted 1,000 ML IV SCH ×2 (10:55→18:20)
[2021-05-05 11:05] LABS: TOTAL CELLS COUNTED 100
[2021-05-05 11:06] LABS: ANISOCYTOSIS 3+; HYPOCHROMASIA 1+; MICROCYTOSIS 1+; PLATELET ESTIMATE INCREASED; POLYCHROMASIA FEW
[2021-05-05 11:07] LABS: STOMATOCYTES 1+
[2021-05-05] MEDS: JUVEN Shake w/Arg/Glut/Ca2+Bmb (Juven 19.3gm) pkt 240ml PO SCH ×2 (12:30→17:30)
[2021-05-05] MEDS ORDERED: famotidine/PF 10 mg/ml inj IV ONE (14:00)
[2021-05-05] MEDS ORDERED: fentaNYL/PF 50MCG/1 ML 2ML syringe ONE ×2 (17:31→18:06)
--- NOTE | 2021-05-05 17:53 | NUR ---
[place] documentation: I have reviewed and agree with all interventions, assessments performed and documented by Shelby LOPEZ. Esmer Medication Administration: For this medication-pass time frame, all medication were reviewed, dispensed, administered and documented per hospital policy by Shelby LOPEZ..
[2021-05-05] MEDS ORDERED: LIDOcaine 2% (20mg/ml) 5ml vial ONE (18:04)
[2021-05-05] MEDS ORDERED: ondansetron/PF 4mg/2ml inj ONE (18:04)
[2021-05-05] MEDS ORDERED: propofol inj 20 ML IV ONE (18:04)
--- NOTE | 2021-05-05 18:08 | NUR ---
Problems reprioritized. Patient report given, questions answered & plan of care reviewed with Sonia LOPEZ and Kaci LOPEZ. Patient in OR
--- NOTE | 2021-05-05 18:10 | NUR ---
PT ARRIVED TO THE RECOVERY ROOM VIA BED WITH DR. NAVARRETE, ANESTHESIA- REPORT GIVEN, PT AWAKE, VSS, PAINFUL AT SURGICAL SITE 01/18 FENTANYL RECENTLY GIVEN BY ANESTHESIA. PIV TO LUE-LR AT 100ML/HR, RISA DRAIN TO LEFT ABD, COVERED WITH OSTOMY BAG TO CATCH DRAINAGE-NO DRAINAGE NOTED YET, OSTOMY ON RIGHT AND MIDLINE DRESSING TO PREVIOUS INCISION UNCHANGED, SCDS ON,
[2021-05-05] MEDS ORDERED: fentaNYL/PF 50MCG/1 ML 2ML syringe IV PRN (18:20)
[2021-05-05] MEDS ORDERED: ondansetron/PF 4mg/2ml inj IV PRN (18:20)
[2021-05-05] MEDS: fentaNYL/PF 50MCG/1 ML 2ML syringe IV PRN ×2 (18:28→18:39)
--- NOTE | 2021-05-05 19:00 | NUR ---
PT TOLERATING CRACKERS AND WATER AFTER ZOFRAN AND FENTANYL GIVEN, PAIN STILL 12/19-PT STATES "T3'S' WORK THE BEST FOR ME" GIVEN PILL FOR PAIN ORDERED. NO N/V CURRENTLY, VSS.
--- NOTE | 2021-05-05 19:45 | NUR ---
CALLED HOSPITALIST DR. SCHRADER FOR REQUEST FOR INCREASE IN TYLENOL W/CODEINE PAIN MED-DR AGREED TO INCREASE TO 2 TABS Q 6 PRN FOR SEVERE PAIN, PT STILL QUITE PAINFUL BUT NOT WANTING MORE IV MEDS, HOPING T3'S WILL HELP.
--- NOTE | 2021-05-05 20:10 | NUR ---
REPORT CALLED TO AMELIA RN ON PCU-ALL QUESTIONS ANSWERED, VSS, PT STILL PAINFUL AT DRAIN SITE, NOTED TO HAVE RISA WITH OSTOMY INTACT WITH DARK RED DRAINAGE IN BAG, PT WILL ATTEMPT TO WAIT TILL NEXT DOSE OF PO PAIN MEDS AND HOPE IT STARTS TO HELP, DENIES N/V, PIV TO LUE-LR 100ML/HR, SCDS ON, DTRS AT BEDSIDE, RTN TO ROOM 3022, BED LOW AND LOCKED, PRIMARY RN IN ROOM TO RECEIVE PT.
[2021-05-05] MEDS: metoprolol succinate 25mg (24-HOUR) SR. Tablet PO SCH (20:44)
[2021-05-05] MEDS: chlorthalidone 25mg tablet PO SCH (20:44)
[2021-05-05] MEDS: enoxaparin 40mg/0.4ml syringe SQ SCH ×3 (20:44→21:05)
[2021-05-05] MEDS: losartan 25mg tablet PO SCH (20:45)
[2021-05-06] VITALS (8 sets, daily range): BP systolic 82–127; BP diastolic 50–79
[2021-05-06] MEDS: meropenem inj 1 GM in normal saline 100ml IV soln 100 ML IV SCH ×3 (00:07→16:01)
[2021-05-06] MEDS: acetaminophen w/codeine (30MG) #3 tablet PO PRN ×4 (05:37→22:03)
[2021-05-06 06:03] LABS: BASOPHILS % (AUTO) 0.2 % (0-1); EOSINOPHILS # (AUTO) 0.1 X10'3 (0-0.9); EOSINOPHILS % (AUTO) 1.2 % (0-6); HEMATOCRIT 28.1 % (35.0-45.0); HEMOGLOBIN 9.1 g/dl (12.0-16.0); LYMPHOCYTES # (AUTO) 1.1 X10'3 (1.1-4.8); MEAN CORPUSCULAR HEMOGLOBIN 25.1 PG (27.0-31.0); MEAN CORPUSCULAR HGB CONC 32.5 g/dL (33.0-36.5); MEAN CORPUSCULAR VOLUME 77.3 FL (78-98); MEAN PLATELET VOLUME 6.4 FL (7.4-10.4); MONOCYTES # (AUTO) 0.9 X10'3 (0-0.9); MONOCYTES % (AUTO) 10.5 % (2-12); NEUTROPHILS # (AUTO) 6.8 X10'3 (1.8-7.7); NEUTROPHILS % (AUTO) 76.1 % (42-75); PLATELET COUNT 498 X10'3 (140-440); RED BLOOD COUNT 3.64 X10'6 (4.20-5.60); RED CELL DISTRIBUTION WIDTH 21.1 % (11.5-14.5)
--- NOTE | 2021-05-06 06:11 | NUR ---
Problems reprioritized. Patient report given, questions answered & plan of care reviewed with JESSICA Frausto.
--- NOTE | 2021-05-06 06:15 | NUR ---
Patient in room PCU 3022. I have received report from Sonia LOPEZ & Kaci LOPEZ and had the opportunity to ask questions and assume patient care. Patient was resting comfortably in bed. All needs met at this time.
--- NOTE | 2021-05-06 06:15 | NUR ---
Patient in room PCU 3022. I have received report from Sonia LOPEZ and had the opportunity to ask questions and assume patient care.
--- NOTE | 2021-05-06 06:20 | NUR ---
[place] Medication Administration: For this medication-pass time frame, all medication were reviewed, dispensed, administered and documented per hospital policy by JESSICA Clemons. [place] documentation: I have reviewed and agree with all interventions, assessments performed and documented by JESSICA Clemons.
[2021-05-06 06:22] LABS: ALANINE AMINOTRANSFERASE 18 U/L (12-78); ALBUMIN 1.6 G/DL (3.4-5.0); ALBUMIN/GLOBULIN RATIO 0.3 (1.1-1.5); ALKALINE PHOSPHATASE 150 IU/L (46-116); ANION GAP 5 (8-16); ASPARTATE AMINO TRANSFERASE 33 U/L (10-37); BILIRUBIN,TOTAL 0.5 MG/DL (0.1-1.0); BLOOD UREA NITROGEN 17 MG/DL (7-18); BUN/CREATININE RATIO 17.2 (6.6-38.0); CALCIUM 8.5 MG/DL (8.5-10.1); CHLORIDE 102 MMOL/L (99-107); CREATININE 0.99 MG/DL (0.40-0.90); GLUCOSE 116 MG/DL (70-104); SODIUM 134 MMOL/L (135-145); TOTAL CARBON DIOXIDE 27.2 MMOL/L (24-32); TOTAL PROTEIN 6.9 G/DL (6.4-8.2); eGFR 61 ML/MIN
[2021-05-06 06:26] LABS: POTASSIUM 4.3 MMOL/L (3.5-5.1)
--- NOTE | 2021-05-06 06:28 | NUR ---
Patient in room PCU 3022. I have received report from Shelby LOPEZ and had the opportunity to ask questions and assume patient care.
[2021-05-06] MEDS: K and/or MAG REPLACEMENT MC SCH ×2 (07:11→20:00)
[2021-05-06] MEDS: vancomycin inj. 750 MG in normal saline 250ml IV soln 250 ML IV SCH (07:32)
[2021-05-06] MEDS: pantoprazole 40mg Tablet.DR PO SCH (07:32)
[2021-05-06] MEDS: lactobacillus rhamnosus 10,000 MMU CELLS/CAPSULE PO SCH ×2 (07:32→20:12)
[2021-05-06 09:11] LABS: ANISOCYTOSIS 3+; ELLIPTOCYTES 1+; MICROCYTOSIS 1+; PLATELET ESTIMATE INCREASED
[2021-05-06] MEDS: JUVEN Shake w/Arg/Glut/Ca2+Bmb (Juven 19.3gm) pkt 240ml PO SCH ×2 (12:30→17:40)
--- NOTE | 2021-05-06 14:25 | NUR ---
Paged Hospitalist. Pt was experiencing low blood pressure while sitting in her chair. PAGER ID: [phone] MESSAGE: Room 3022A; Jenny Cervantes: Patient's BP is 89/58 and was diaphoretic, we got her back into bed. [place] [id number]
--- NOTE | 2021-05-06 18:26 | NUR ---
Problems reprioritized. Patient report given, questions answered & plan of care reviewed with Jade LOPEZ and Kaci LOPEZ. Patient resting in bed in no acute distress.
[2021-05-06] MEDS ORDERED: VANCOMYCIN LEVEL IV ONE (18:30)
[2021-05-06] MEDS ORDERED: vancomycin/NS 500MG ADD-VANT 100 ML IV SCH (20:00)
[2021-05-06] MEDS: chlorthalidone 25mg tablet PO SCH (20:11)
[2021-05-06] MEDS: metoprolol succinate 25mg (24-HOUR) SR. Tablet PO SCH (20:12)
[2021-05-06] MEDS: losartan 25mg tablet PO SCH (20:21)
[2021-05-06] MEDS: enoxaparin 40mg/0.4ml syringe SQ SCH (20:22)
[2021-05-07] MEDS: meropenem inj 1 GM in normal saline 100ml IV soln 100 ML IV SCH ×2 (00:16→08:41)
--- NOTE | 2021-05-07 00:37 | NUR ---
pt had critical value: vancomycin trough of 21.9. I called Dr. Chang and was told to hold 1900 dose of vancomycin 750 mg. I talked to pharmacist and the dose is lowered to 500 mg BID. Initial dose started at 1999.
[2021-05-07 02:00] VITALS: BP 109/73
[2021-05-07 06:00] VITALS: BP 112/63
[2021-05-07 06:18] LABS: BASOPHILS % (AUTO) 0.2 % (0-1); EOSINOPHILS # (AUTO) 0.1 X10'3 (0-0.9); EOSINOPHILS % (AUTO) 1.3 % (0-6); HEMATOCRIT 26.7 % (35.0-45.0); HEMOGLOBIN 8.7 g/dl (12.0-16.0); LYMPHOCYTES # (AUTO) 1.6 X10'3 (1.1-4.8); LYMPHOCYTES % (AUTO) 18.3 % (21-51); MEAN CORPUSCULAR HEMOGLOBIN 25.4 PG (27.0-31.0); MEAN CORPUSCULAR HGB CONC 32.8 g/dL (33.0-36.5); MEAN CORPUSCULAR VOLUME 77.5 FL (78-98); MEAN PLATELET VOLUME 6.6 FL (7.4-10.4); MONOCYTES % (AUTO) 12.1 % (2-12); NEUTROPHILS # (AUTO) 5.9 X10'3 (1.8-7.7); NEUTROPHILS % (AUTO) 68.1 % (42-75); PLATELET COUNT 448 X10'3 (140-440); RED BLOOD COUNT 3.44 X10'6 (4.20-5.60); RED CELL DISTRIBUTION WIDTH 21.2 % (11.5-14.5); WHITE BLOOD COUNT 8.7 X10'3 (4.5-11.0)
--- NOTE | 2021-05-07 06:24 | NUR ---
Patient in room PCU 3022. I have received report from Kaci LOPEZ and had the opportunity to ask questions and assume patient care.
--- NOTE | 2021-05-07 06:26 | NUR ---
Problems reprioritized. Patient report given, questions answered & plan of care reviewed with Katie LOPEZ.
[2021-05-07 06:40] LABS: ALANINE AMINOTRANSFERASE 19 U/L (12-78); ALBUMIN 1.6 G/DL (3.4-5.0); ALBUMIN/GLOBULIN RATIO 0.3 (1.1-1.5); ALKALINE PHOSPHATASE 137 IU/L (46-116); ANION GAP 8 (8-16); ASPARTATE AMINO TRANSFERASE 23 U/L (10-37); BILIRUBIN,TOTAL 0.3 MG/DL (0.1-1.0); BLOOD UREA NITROGEN 16 MG/DL (7-18); BUN/CREATININE RATIO 18.4 (6.6-38.0); CALCIUM 8.1 MG/DL (8.5-10.1); CHLORIDE 101 MMOL/L (99-107); CREATININE 0.87 MG/DL (0.40-0.90); GLUCOSE 112 MG/DL (70-104); POTASSIUM 3.9 MMOL/L (3.5-5.1); SODIUM 137 MMOL/L (135-145); TOTAL CARBON DIOXIDE 27.8 MMOL/L (24-32); TOTAL PROTEIN 6.9 G/DL (6.4-8.2); TRIGLYCERIDES 260 MG/DL (20-135); eGFR 70 ML/MIN
[2021-05-07] MEDS: K and/or MAG REPLACEMENT MC SCH (08:00)
[2021-05-07] MEDS: lactobacillus rhamnosus 10,000 MMU CELLS/CAPSULE PO SCH (08:00)
[2021-05-07] MEDS: pantoprazole 40mg Tablet.DR PO SCH (08:42)
[2021-05-07] MEDS: acetaminophen w/codeine (30MG) #3 tablet PO PRN ×2 (08:42→14:20)
[2021-05-07 09:40] LABS: ANISOCYTOSIS 3+; MICROCYTOSIS 1+; PLATELET ESTIMATE INCREASED; STOMATOCYTES 1+
--- NOTE | 2021-05-07 09:46 | NUR ---
PICC NURSE PAGED REGARDING NEED FOR MIDLINE PRIOR TO DISCHARGE. PICC RN DANNY CALLED BACK AND STATED THAT SHE WOULD COME IN A BIT TO PLACE THE MIDLINE.
[2021-05-07] MEDS ORDERED: LOSA25TA41 PO (09:53)
[2021-05-07] MEDS ORDERED: ACET-1 PO (09:53)
[2021-05-07] MEDS ORDERED: LINE600T11 PO (09:53)
[2021-05-07] MEDS ORDERED: PANT40TA54 PO (09:53)
[2021-05-07] MEDS ORDERED: ertapenem sod inj 1 GM in normal saline 100ml IV soln 100 ML IV SCH (10:40)
[2021-05-07 11:00] VITALS: BP 95/69
[2021-05-07] MEDS: JUVEN Shake w/Arg/Glut/Ca2+Bmb (Juven 19.3gm) pkt 240ml PO SCH (13:14)
--- NOTE | 2021-05-07 16:53 | NUR ---
Patient stable for discharge per Dr. Martines and Dr. Noriega. PICC line placed for home antibiotic therapy. Francine educated patient on IV meds. PIV DC'd with the cannula intact. Tele DC'd. Patient verbalized understanding of the discharge instructions, importance of follow up and new medication regimen. Daughter took belongings home with her. Patient was wheeled to lobby for transport home by a [employer]-transit company.
[2021-05-07] MEDS ORDERED: linezolid 600mg tablet PO SCH (20:00)
[2021-05-08] MEDS ORDERED: VANCOMYCIN LEVEL IV ONE (07:30)
== END 2021-05-07 16:10 | disposition home health service (06) | DRG 230 ==
LOC: ER 17:40 → UNDOADMIN 22:29 → ED HOLD 22:29 → UNDOADMIN 22:31 → ED HOLD 22:31 → SUR 3N 04-10 20:00 → ICU 2S 04-11 20:29 → PCU 3S 04-18 17:40 → SUR 3N 04-20 16:28 → ICU 2S 04-23 16:58 → PCU 3S 04-28 18:25
PROVIDERS: ADMIT Internal Medicine; ATTEND Family Medicine
PROC: 0D1B0Z4 Bypass Ileum to Cutaneous, Open Approach (ICD-10-PCS; 2021-04-11)
PROC: 5A1945Z Respiratory Ventilation, 24-96 Consecutive Hours (ICD-10-PCS; 2021-04-11)
PROC: 0DBN0ZZ Excision of Sigmoid Colon, Open Approach (ICD-10-PCS; 2021-04-11)
PROC: 0D9N8ZZ Drainage of Sigmoid Colon, Via Natural or Artificial Opening Endoscopic (ICD-10-PCS; 2021-04-11)
PROC: 0BH17EZ Insertion of Endotracheal Airway into Trachea, Via Natural or Artificial Opening (ICD-10-PCS; 2021-04-11)
PROC: 0DBU0ZZ Excision of Omentum, Open Approach (ICD-10-PCS; principal; 2021-04-11 18:15)
PROC: 4A10X4Z Monitoring of Central Nervous Electrical Activity, External Approach (ICD-10-PCS; 2021-04-16)
PROC: 5A09457 Assistance with Respiratory Ventilation, 24-96 Consecutive Hours, Continuous Positive Airway Pressure (ICD-10-PCS; 2021-04-16)
PROC: 30233N1 Transfusion of Nonautologous Red Blood Cells into Peripheral Vein, Percutaneous Approach (ICD-10-PCS; 2021-04-21)
PROC: 0W9G0ZZ Drainage of Peritoneal Cavity, Open Approach (ICD-10-PCS; 2021-04-23)
PROC: BW211ZZ Computerized Tomography (CT Scan) of Abdomen and Pelvis using Low Osmolar Contrast (ICD-10-PCS; 2021-04-27)
PROC: 0W9F3ZZ Drainage of Abdominal Wall, Percutaneous Approach (ICD-10-PCS; 2021-05-02)
PROC: 0W9G0ZZ Drainage of Peritoneal Cavity, Open Approach (ICD-10-PCS; 2021-05-05)
DX: K56.609 Unspecified intestinal obstruction, unspecified as to partial versus complete obstruction (principal); J96.01 Acute respiratory failure with hypoxia; A41.02 Sepsis due to Methicillin resistant Staphylococcus aureus; N17.0 Acute kidney failure with tubular necrosis; K65.1 Peritoneal abscess; R65.21 Severe sepsis with septic shock; G93.40 Encephalopathy, unspecified; K57.20 Diverticulitis of large intestine with perforation and abscess without bleeding; E43 Unspecified severe protein-calorie malnutrition; I11.0 Hypertensive heart disease with heart failure; I50.9 Heart failure, unspecified; Y83.3 Surgical operation with formation of external stoma as the cause of abnormal reaction of the patient, or of later complication, without mention of misadventure at the time of the procedure; Y92.230 Patient room in hospital as the place of occurrence of the external cause; Z20.822 Contact with and (suspected) exposure to COVID-19; R18.8 Other ascites; E87.2 Acidosis; E87.8 Other disorders of electrolyte and fluid balance, not elsewhere classified; E87.6 Hypokalemia; I27.81 Cor pulmonale (chronic); J98.11 Atelectasis; B96.20 Unspecified Escherichia coli [E. coli] as the cause of diseases classified elsewhere; T81.43XA Infection following a procedure, organ and space surgical site, initial encounter; J18.9 Pneumonia, unspecified organism; D62 Acute posthemorrhagic anemia; I25.2 Old myocardial infarction; Z88.8 Allergy status to other drugs, medicaments and biological substances; Z79.899 Other long term (current) drug therapy; Z88.6 Allergy status to analgesic agent; Z90.49 Acquired absence of other specified parts of digestive tract; Z98.891 History of uterine scar from previous surgery; Z98.51 Tubal ligation status; Z87.442 Personal history of urinary calculi; Z68.32 Body mass index [BMI] 32.0-32.9, adult
CPT/HCPCS: 36415; 36430; 36600; 45337; 49406; 70450; 71045; 74018; 74019; 74176; 74177; 76937; 80047; 80048; 80053; 80202; 81001; 82378; 82803; 82948; 83540; 83550; 83605; 83735; 83880; 84100; 84145; 84478; 85007; 85008; 85018; 85025; 85610; 85730; 86885; 86900; 86901; 86920; 87040; 87070; 87075; 87076; 87077; 87081; 87102; 87185; 87186; 87635; 92508; 93005; 93306; 94002; 94003; 94640; 94760; 95720; 96374; 97110; 97116; 97161; 97164; 97530; 97535; 99152; 99153; 99285; A4421; A4618; A4620; A5052; A6253; A6258; A6446; A6449; A7000; C1758; C9113; G0378; J0131; J0153; J0360; J1170; J1200; J1450; J1644; J1650; J1815; J1885; J1940; J2001; J2060; J2185; J2250; J2310; J2370; J2405; J2543; J2704; J3010; J3370; J3480; J3490; J7030; J7040; J7050; J7120; P9016; P9045; P9047; Q9963; Q9967

== ENCOUNTER 2021-05-13 11:28 | Emergency (ER) | payer MEDICAID ==
[~2021-05-13] VITALS: Ht 175.3 cm; Wt 95.5 kg
[~2021-05-13 11:28] MED LIST changes: +ACET-1 PO; -CEFD300C3 PO; +LINE600T11 PO; +LOSA25TA41 PO; -LOSA50TA3 PO; -METR-159 PO; +PANT40TA54 PO
[2021-05-13] MEDS ORDERED: normal saline 1000ML IV soln IVB ONE (12:20)
[2021-05-13] MEDS ORDERED: fentaNYL/PF 50MCG/1 ML 2ML syringe IV ONE (12:20)
[2021-05-13] MEDS ORDERED: ondansetron/PF 4mg/2ml inj IV ONE (12:20)
[2021-05-13] MEDS ORDERED: iohexol 350MG/ML 100ml bottle IV ONE (12:29)
[2021-05-13 13:00] LABS: ALANINE AMINOTRANSFERASE 25 U/L (12-78); ALBUMIN 2.3 G/DL (3.4-5.0); ALBUMIN/GLOBULIN RATIO 0.4 (1.1-1.5); ALKALINE PHOSPHATASE 178 IU/L (46-116); ANION GAP 9 (8-16); ASPARTATE AMINO TRANSFERASE 29 U/L (10-37); BILIRUBIN,TOTAL 0.4 MG/DL (0.1-1.0); BLOOD UREA NITROGEN 11 MG/DL (7-18); BUN/CREATININE RATIO 10.4 (6.6-38.0); CHLORIDE 101 MMOL/L (99-107); CREATININE 1.06 MG/DL (0.40-0.90); GLUCOSE 114 MG/DL (70-104); SODIUM 139 MMOL/L (135-145); TOTAL CARBON DIOXIDE 28.6 MMOL/L (24-32); TOTAL PROTEIN 8.6 G/DL (6.4-8.2); eGFR 56 ML/MIN
[2021-05-13] MEDS ORDERED: IOHEXOL 12MG/ML oral solution 500 ML BOTTLE PO ONE (13:00)
[2021-05-13 13:06] LABS: BASOPHILS % (AUTO) 0.3 % (0-1); EOSINOPHILS # (AUTO) 0.1 X10'3 (0-0.9); EOSINOPHILS % (AUTO) 0.8 % (0-6); HEMATOCRIT 29.9 % (35.0-45.0); HEMOGLOBIN 9.7 g/dl (12.0-16.0); LIPASE 97 U/L (73-393); LYMPHOCYTES # (AUTO) 2.1 X10'3 (1.1-4.8); MEAN CORPUSCULAR HEMOGLOBIN 25.1 PG (27.0-31.0); MEAN CORPUSCULAR HGB CONC 32.4 g/dL (33.0-36.5); MEAN CORPUSCULAR VOLUME 77.5 FL (78-98); MEAN PLATELET VOLUME 6.1 FL (7.4-10.4); MONOCYTES # (AUTO) 0.6 X10'3 (0-0.9); MONOCYTES % (AUTO) 8.7 % (2-12); NEUTROPHILS # (AUTO) 4.5 X10'3 (1.8-7.7); NEUTROPHILS % (AUTO) 61.2 % (42-75); PLATELET COUNT 547 X10'3 (140-440); RED BLOOD COUNT 3.85 X10'6 (4.20-5.60); RED CELL DISTRIBUTION WIDTH 20.7 % (11.5-14.5); WHITE BLOOD COUNT 7.3 X10'3 (4.5-11.0)
[2021-05-13 13:47] LABS: ANISOCYTOSIS 3+; MICROCYTOSIS 1+; PLATELET ESTIMATE INCREASED
[2021-05-13 13:48] LABS: HYPOCHROMASIA 1+; POLYCHROMASIA 1+
[2021-05-13] MEDS ORDERED: ACET-3068 PO (15:59)
[2021-05-13 16:09] VITALS: BP 117/91
[2021-05-13 16:35] LABS: CLARITY,URINE SLIGHTLY CLOUDY (Clear); COLOR,URINE YELLOW (Yellow); UA COLLECTION TYPE CLN CATCH MIDSTREAM
[2021-05-13 16:36] LABS: GLUCOSE, URINE NEGATIVE (Neg); KETONES,URINE NEGATIVE (Neg); LEUKOCYTE ESTERASE ,URINE NEGATIVE (Neg); NITRITES, URINE NEGATIVE (Neg); OCCULT BLOOD,URINE MODERATE (Neg); PROTEIN,URINE TRACE mg/dl (Neg); UROBILINOGEN,URINE 0.2 E.U/dL (0.2-1.0)
[2021-05-13 16:38] LABS: BACTERIA,URINE NONE SEEN /HPF (Neg); CELLULAR CAST 0-4 /LPF (NEGATIVE); MUCUS STRANDS NONE SEEN /LPF (Neg); RBC,URINE 0-2 /HPF (0-2); SQUAMOUS EPITHELIAL CELL,UR MODERATE /LPF (FEW); WBC,URINE 0-4 /HPF (0-4)
--- NOTE | 2021-05-13 17:01 | NUR ---
Pt given and understands d/c instructions. Ambulatory with a steady gait.
== END 2021-05-13 17:04 | disposition home or self-care (01) ==
LOC: ER 11:28
DX: R10.9 Unspecified abdominal pain (principal); R07.89 Other chest pain; R06.02 Shortness of breath; I10 Essential (primary) hypertension; Z86.14 Personal history of Methicillin resistant Staphylococcus aureus infection; Z87.19 Personal history of other diseases of the digestive system; Z90.49 Acquired absence of other specified parts of digestive tract; Z98.891 History of uterine scar from previous surgery; Z98.51 Tubal ligation status; Z79.899 Other long term (current) drug therapy; Z88.5 Allergy status to narcotic agent; Z88.8 Allergy status to other drugs, medicaments and biological substances
CPT/HCPCS: 36415; 71045; 71275; 74177; 80053; 81001; 83690; 83880; 84484; 85008; 85025; 93005; 99285; Q9967

== ENCOUNTER 2021-06-29 13:08 | Emergency (ER) | payer MEDICAID ==
[~2021-06-29] VITALS: Ht 175.3 cm; Wt 81.8 kg
[~2021-06-29 13:08] MED LIST changes: +LIDOcaine 2% 5ml jelly ONE; -LINE600T11 PO
[2021-06-29 13:22] VITALS: BP 179/103
[2021-06-29] MEDS: diatr meglu/diatrizoate 30ml oral sol.-(3 dose) bottle PO SCH ×3 (13:47→15:35)
[2021-06-29] MEDS ORDERED: AMOX-117 PO (18:16)
== END 2021-06-29 18:36 | disposition home or self-care (01) ==
LOC: ER 13:08
DX: T81.9XXA Unspecified complication of procedure, initial encounter (principal); I10 Essential (primary) hypertension; Z98.890 Other specified postprocedural states
CPT/HCPCS: 74176; 99284; Q9963

== ENCOUNTER 2021-07-03 06:36 | Day surgery (SDC) | payer MEDICAID ==
[2021-07-03] VITALS (14 sets, daily range): BP systolic 130–166; BP diastolic 89–106
[~2021-07-03] VITALS: Ht 175.3 cm; Wt 87.0 kg
[~2021-07-03 06:36] MED LIST changes: +AMOX-117 PO; -LIDOcaine 2% 5ml jelly ONE
[2021-07-03] MEDS ORDERED: normal saline 1000ml 1,000 ML IV SCH (07:05)
[2021-07-03] MEDS ORDERED: LIDOcaine 1% (10mg/ml) 2ml vial ONE (09:05)
[2021-07-03] MEDS ORDERED: fentaNYL/PF 50MCG/1 ML 2ML syringe ONE ×2 (09:05→10:13)
[2021-07-03] MEDS ORDERED: midazolam 1 mg/ML 2ml injection ONE (09:05)
[2021-07-03 09:06] LABS: BASOPHILS % (AUTO) 0.1 % (0-1); EOSINOPHILS # (AUTO) 0.1 X10'3 (0-0.9); EOSINOPHILS % (AUTO) 1.4 % (0-6); HEMATOCRIT 30.5 % (35.0-45.0); HEMOGLOBIN 10.1 g/dl (12.0-16.0); LYMPHOCYTES # (AUTO) 1.5 X10'3 (1.1-4.8); MEAN CORPUSCULAR HGB CONC 33.3 g/dL (33.0-36.5); MEAN CORPUSCULAR VOLUME 78.3 FL (78-98); MEAN PLATELET VOLUME 6.5 FL (7.4-10.4); MONOCYTES # (AUTO) 0.7 X10'3 (0-0.9); MONOCYTES % (AUTO) 9.8 % (2-12); NEUTROPHILS # (AUTO) 4.9 X10'3 (1.8-7.7); NEUTROPHILS % (AUTO) 67.7 % (42-75); PLATELET COUNT 375 X10'3 (140-440); RED CELL DISTRIBUTION WIDTH 17.8 % (11.5-14.5); WHITE BLOOD COUNT 7.2 X10'3 (4.5-11.0)
[2021-07-03] MEDS ORDERED: ondansetron/PF 4mg/2ml inj ONE (10:12)
== END 2021-07-03 12:20 | disposition home or self-care (01) ==
LOC: SSTAY O 06:36
PROVIDERS: ATTEND Preventive Medicine Aerospace Medicine
DX: K75.0 Abscess of liver (principal); Z88.5 Allergy status to narcotic agent; Z88.8 Allergy status to other drugs, medicaments and biological substances; Z79.899 Other long term (current) drug therapy
CPT/HCPCS: 36415; 49405; 85025; 87070; 99152; 99153; J2250; J2405; J3010; J3490

== ENCOUNTER 2021-07-16 06:50 | Inpatient (IN) | payer MEDICAID ==
[2021-07-14 10:28] LABS: BASOPHILS % (AUTO) 0.2 % (0-1); EOSINOPHILS # (AUTO) 0.1 X10'3 (0-0.9); EOSINOPHILS % (AUTO) 1.9 % (0-6); LYMPHOCYTES # (AUTO) 1.5 X10'3 (1.1-4.8); LYMPHOCYTES % (AUTO) 26.4 % (21-51); MEAN CORPUSCULAR HEMOGLOBIN 25.9 PG (27.0-31.0); MEAN CORPUSCULAR HGB CONC 32.6 g/dL (33.0-36.5); MEAN CORPUSCULAR VOLUME 79.4 FL (78-98); MEAN PLATELET VOLUME 6.8 FL (7.4-10.4); MONOCYTES # (AUTO) 0.6 X10'3 (0-0.9); MONOCYTES % (AUTO) 10.6 % (2-12); NEUTROPHILS # (AUTO) 3.5 X10'3 (1.8-7.7); NEUTROPHILS % (AUTO) 60.9 % (42-75); PRE OP HEMATOCRIT 34.9 % (35.0-45.0); PRE OP HEMOGLOBIN 11.4 g/dL (12.0-16.0); PRE OP PLATELET COUNT 415 X10'3 (140-440); RED CELL DISTRIBUTION WIDTH 17.4 % (11.5-14.5)
[2021-07-14 10:35] LABS: CLARITY,URINE SLIGHTLY CLOUDY (Clear); COLOR,URINE YELLOW (Yellow); GLUCOSE, URINE NEGATIVE (Neg); KETONES,URINE TRACE mg/dl (Neg); LEUKOCYTE ESTERASE ,URINE NEGATIVE (Neg); NITRITES, URINE NEGATIVE (Neg); OCCULT BLOOD,URINE LARGE (Neg); PROTEIN,URINE 30 mg/dl (Neg); UROBILINOGEN,URINE 0.2 E.U/dL (0.2-1.0)
[2021-07-14 10:37] LABS: UA COLLECTION TYPE CLN CATCH MIDSTREAM
[2021-07-14 10:46] LABS: SQUAMOUS EPITHELIAL CELL,UR MANY /LPF (FEW)
[2021-07-14 10:47] LABS: BACTERIA,URINE FEW /HPF (Neg); HYALINE CASTS 0-3 /LPF (NEGATIVE); MUCUS STRANDS MANY /LPF (Neg); RBC,URINE 50-100 /HPF (0-2); WBC,URINE 0-4 /HPF (0-4)
[2021-07-14 10:54] LABS: PRE OP PROTIME 10.1 SECONDS (9.0-12.0)
[2021-07-14 10:58] LABS: ALBUMIN/GLOBULIN RATIO 0.5 (1.1-1.5); ALKALINE PHOSPHATASE 112 IU/L (46-116); BLOOD UREA NITROGEN 17 MG/DL (7-18); BUN/CREATININE RATIO 16.2 (6.6-38.0); CHLORIDE 104 MMOL/L (99-107); CREATININE 1.05 MG/DL (0.40-0.90); PRE OP ALT 30 U/L (30-65); PRE OP ANION GAP 9 (8-16); PRE OP AST 28 U/L (10-37); PRE OP BILIRUB, TOTAL 0.2 MG/DL (0.0-1.0); PRE OP GLUCOSE 100 MG/DL (70-104); PRE OP POTASSIUM 3.6 MMOL/L (3.4-5.1); PRE OP SODIUM 139 MMOL/L (135-145); TOTAL CARBON DIOXIDE 26.3 MMOL/L (24-32); TOTAL PROTEIN 8.6 G/DL (6.4-8.2); eGFR 57 ML/MIN
[~2021-07-16] VITALS: Ht 175.3 cm; Wt 84.1 kg
[~2021-07-16 06:50] MED LIST changes: -ACET-1 PO; -AMOX-117 PO; +AMOX-580 PO; +DOCUMENT DATE & TIME OF BETA-BLOCKER PO ONE; +LIDOcaine 2% 5ml jelly ONE; -LOSA25TA41 PO; -PANT40TA54 PO; -TOPI50TA24 PO; +ceFOXitin 2GM-NS 100mL ADDvant 100 ML IV ONE; +famotidine 20mg tablet PO ONE; +ringers solution, lacted 1,000 ML IV SCH
[2021-07-16 07:00] VITALS: BP 126/89
[2021-07-16 07:57] LABS: ABG BASE EXCESS 0.8 mmol/L (-2.0-2.0); ABG HCO3 24.4 mmol/L (22.0-26.0); ABG OXYGEN SATURATION 97.9 % (94-97); ABG PCO2 (T) 35.2 mmHg (32.0-45.0); ABG PO2 (T) 99.8 mmHg (75.0-100.0); ALLEN'S TEST POSITIVE; FCOHb 0.4 % (0.0-3.9); FMetHb 0.2 % (0.0-1.5); FO2Hb 97.3 % (94-97); TOTAL HEMOGLOBIN 12.1 G/dl (12.0-16.0)
[2021-07-16] MEDS ORDERED: diatrozoate meglu/diatrozoate sod (37% iodine) 120ML oral solution ONE (08:00)
[2021-07-16] MEDS ORDERED: albuterol 2.5 MG/3 ML nebule NEB ONE (08:10)
[2021-07-16] MEDS ORDERED: proCHLORperazine 10 MG/2 ml inj IV PRN (08:15)
[2021-07-16] MEDS ORDERED: meperidine/PF 25mg/ml syringe IV PRN (08:15)
[2021-07-16] MEDS ORDERED: ringers solution, lacted 1,000 ML IV SCH (08:15)
[2021-07-16] MEDS ORDERED: fentaNYL/PF 50MCG/1 ML 2ML syringe IV PRN (08:15)
[2021-07-16] MEDS ORDERED: ondansetron/PF 4mg/2ml inj IV PRN (08:15)
[2021-07-16] MEDS ORDERED: iohexol 300 MG/1 ML 50ml polymer ONE (08:48)
--- NOTE | 2021-07-16 13:30 | NUR ---
PTS SURG CXL PER MARTIN. PRIOR TO DC RIGHT DARIO DRAIN PULLED WITH ASSIST OF MARTIN. PT MANISH WELL ALL QUESTIONS ASKED AND ANSWERED. PT AMBULATED TO LOBBY TO HOME WITH
== END 2021-07-16 13:30 | disposition home or self-care (01) | DRG 244 ==
LOC: PAS IN 06:50
PROVIDERS: ADMIT Surgery; ATTEND Surgery
DX: K57.80 Diverticulitis of intestine, part unspecified, with perforation and abscess without bleeding (principal); Z88.8 Allergy status to other drugs, medicaments and biological substances; Z93.3 Colostomy status; Z90.49 Acquired absence of other specified parts of digestive tract
CPT/HCPCS: 36415; 36600; 71046; 74270; 80053; 81001; 82803; 82948; 85018; 85025; 85610; 85730; 86885; 86900; 86901; 87081; 87635; 94060; 94760; J7120; Q9963; Q9967

== ENCOUNTER 2021-10-16 10:03 | Outpatient (CLI) | payer MEDICAID ==
[~2021-10-16 10:03] MED LIST changes: -DOCUMENT DATE & TIME OF BETA-BLOCKER PO ONE; -LIDOcaine 2% 5ml jelly ONE; -ceFOXitin 2GM-NS 100mL ADDvant 100 ML IV ONE; +diatrozoate meglu/diatrozoate sod (37% iodine) 120ML oral solution ONE; -famotidine 20mg tablet PO ONE; -ringers solution, lacted 1,000 ML IV SCH
== END 2021-10-16 23:59 | disposition home or self-care (01) ==
LOC: RAD 10:03
PROVIDERS: ATTEND Surgery
DX: K63.89 Other specified diseases of intestine (principal); Z98.0 Intestinal bypass and anastomosis status
CPT/HCPCS: 74270; Q9963

== ENCOUNTER 2021-12-31 08:43 | Outpatient (CLI) | payer MEDICAID ==
[~2021-12-31 08:43] MED LIST changes: -diatrozoate meglu/diatrozoate sod (37% iodine) 120ML oral solution ONE
[2021-12-31] MEDS ORDERED: iohexol 300mg/ml 100ml inj. ONE (08:52)
== END 2021-12-31 23:59 | disposition home or self-care (01) ==
LOC: RAD 08:43
PROVIDERS: ATTEND Family Medicine
DX: N85.2 Hypertrophy of uterus (principal); L02.91 Cutaneous abscess, unspecified; Z90.49 Acquired absence of other specified parts of digestive tract; Z93.3 Colostomy status
CPT/HCPCS: 74177; J3490; Q9967

== ENCOUNTER 2022-02-10 08:29 | Outpatient (CLI) | payer MEDICAID ==
[~2022-02-10 08:29] MED LIST changes: +diatrozoate meglu/diatrozoate sod (37% iodine) 120ML oral solution ONE
[2022-02-10] MEDS ORDERED: IOPAMIDOL 10 ML VIAL IT ONE (08:56)
[2022-02-10] MEDS ORDERED: SULF1TAB45 PO (17:52)
[2022-02-14] MEDS ORDERED: IBUP-1984 PO (17:55)
[2022-02-14] MEDS ORDERED: IBUP-24 PO (17:56)
== END 2022-02-10 23:59 | disposition home or self-care (01) ==
LOC: 64 CT 08:29
PROVIDERS: ATTEND Surgery
DX: L98.8 Other specified disorders of the skin and subcutaneous tissue (principal); J90 Pleural effusion, not elsewhere classified; N20.0 Calculus of kidney; Z01.812 Encounter for preprocedural laboratory examination; Z98.0 Intestinal bypass and anastomosis status; K63.89 Other specified diseases of intestine; K57.30 Diverticulosis of large intestine without perforation or abscess without bleeding
CPT/HCPCS: 49424; 74176; 74270; 76080; Q9963; Q9966; A6258; A6449

== ENCOUNTER 2022-04-18 08:19 | Emergency (ER) | payer MEDICAID ==
[~2022-04-18] VITALS: Ht 172.7 cm; Wt 90.9 kg
[~2022-04-18 08:19] MED LIST changes: -AMOX-580 PO; +ASCO500C18 PO; +B COMPLEX PO; -CHLO25TA10 PO; +CHOL200042 PO; +FERR325T28 PO; +[UNRECOGNIZED DRUG - OTHER] PO; -diatrozoate meglu/diatrozoate sod (37% iodine) 120ML oral solution ONE
[2022-04-18 11:41] VITALS: BP 170/103
== END 2022-04-18 11:44 | disposition home or self-care (01) ==
LOC: ER 08:19
DX: S31.109D Unspecified open wound of abdominal wall, unspecified quadrant without penetration into peritoneal cavity, subsequent encounter (principal); I10 Essential (primary) hypertension; Z86.14 Personal history of Methicillin resistant Staphylococcus aureus infection; Z91.018 Allergy to other foods; Z88.5 Allergy status to narcotic agent; Z79.899 Other long term (current) drug therapy; X58.XXXD Exposure to other specified factors, subsequent encounter
CPT/HCPCS: 99281; A6253; A6449

== ENCOUNTER 2022-04-27 20:01 | Emergency (ER) | payer MEDICAID ==
[~2022-04-27] VITALS: Ht 172.7 cm; Wt 90.0 kg
[2022-04-27 20:41] LABS: BASOPHILS % (AUTO) 0.1 % (0-1); EOSINOPHILS # (AUTO) 0.2 X10'3 (0-0.9); EOSINOPHILS % (AUTO) 2.2 % (0-6); LYMPHOCYTES % (AUTO) 9.2 % (21-51); MEAN CORPUSCULAR HEMOGLOBIN 23.7 PG (27.0-31.0); MEAN CORPUSCULAR HGB CONC 31.7 g/dL (33.0-36.5); MEAN CORPUSCULAR VOLUME 74.7 FL (78-98); MEAN PLATELET VOLUME 6.4 FL (7.4-10.4); MONOCYTES # (AUTO) 1.5 X10'3 (0-0.9); MONOCYTES % (AUTO) 14.2 % (2-12); NEUTROPHILS # (AUTO) 8.1 X10'3 (1.8-7.7); NEUTROPHILS % (AUTO) 74.3 % (42-75); PLATELET COUNT 542 X10'3 (140-440); RED BLOOD COUNT 2.96 X10'6 (4.20-5.60); RED CELL DISTRIBUTION WIDTH 17.7 % (11.5-14.5); WHITE BLOOD COUNT 10.9 X10'3 (4.5-11.0)
[2022-04-27 20:56] LABS: ALANINE AMINOTRANSFERASE 25 U/L (12-78); ALBUMIN 2.3 G/DL (3.4-5.0); ALBUMIN/GLOBULIN RATIO 0.4 (1.1-1.5); ALKALINE PHOSPHATASE 288 IU/L (46-116); ANION GAP 14 (8-16); ASPARTATE AMINO TRANSFERASE 19 U/L (10-37); BILIRUBIN,TOTAL 0.3 MG/DL (0.1-1.0); BLOOD UREA NITROGEN 21 MG/DL (7-18); BUN/CREATININE RATIO 10.3 (6.6-38.0); CALCIUM 9.1 MG/DL (8.5-10.1); CHLORIDE 101 MMOL/L (99-107); CREATININE 2.03 MG/DL (0.40-0.90); GLUCOSE 111 MG/DL (70-104); POTASSIUM 3.8 MMOL/L (3.5-5.1); SODIUM 136 MMOL/L (135-145); TOTAL CARBON DIOXIDE 21.4 MMOL/L (24-32); TOTAL PROTEIN 8.1 G/DL (6.4-8.2); eGFR 26 ML/MIN
[2022-04-27 21:03] LABS: LIPASE 85 U/L (73-393)
[2022-04-27 21:06] LABS: HEMATOCRIT 22.1 % (35.0-45.0)
[2022-04-27] MEDS ORDERED: ringers solution, lacted 1,000 ML IV ONE (23:00)
[2022-04-27] MEDS ORDERED: iron sucrose complex injection 500 MG in normal saline 250ml IV soln 250 ML IV ONE (23:20)
[2022-04-27 23:36] LABS: URINE HCG NEGATIVE (NEG)
[2022-04-27 23:41] LABS: CLARITY,URINE SLIGHTLY CLOUDY (Clear); COLOR,URINE YELLOW (Yellow); GLUCOSE, URINE NEGATIVE (Neg); KETONES,URINE NEGATIVE (Neg); LEUKOCYTE ESTERASE ,URINE NEGATIVE (Neg); NITRITES, URINE NEGATIVE (Neg); OCCULT BLOOD,URINE LARGE (Neg); PH,URINE 5.5 (4.8-8.0); PROTEIN,URINE 100 mg/dl (Neg); UROBILINOGEN,URINE 0.2 E.U/dL (0.2-1.0)
[2022-04-27 23:51] LABS: UA COLLECTION TYPE CLN CATCH MIDSTREAM
[2022-04-27 23:54] LABS: BACTERIA,URINE 2+ /HPF (Neg); RBC,URINE 20-50 /HPF (0-2); SQUAMOUS EPITHELIAL CELL,UR FEW /LPF (FEW)
[2022-04-27 23:55] LABS: MUCUS STRANDS NONE SEEN /LPF (Neg); YEAST MODERATE /HPF (NEGATIVE)
[2022-04-28] MEDS ORDERED: acetaminophen 325mg tablet PO ONE (01:10)
[2022-04-28 04:17] VITALS: BP 167/95
[2022-04-29] MEDS ORDERED: THALITONE PO (10:33)
[2022-04-29] MEDS ORDERED: ACET-3068 PO (10:34)
[2022-04-29] MEDS ORDERED: DOCU-342 PO (10:34)
== END 2022-04-28 04:19 | disposition home or self-care (01) ==
LOC: ER 20:02
DX: D50.9 Iron deficiency anemia, unspecified (principal); R11.2 Nausea with vomiting, unspecified; R10.13 Epigastric pain; I10 Essential (primary) hypertension; Z86.14 Personal history of Methicillin resistant Staphylococcus aureus infection; Z90.49 Acquired absence of other specified parts of digestive tract; Z98.51 Tubal ligation status; Z98.890 Other specified postprocedural states; Z88.5 Allergy status to narcotic agent; Z88.8 Allergy status to other drugs, medicaments and biological substances; Z79.899 Other long term (current) drug therapy
CPT/HCPCS: 36415; 71045; 74176; 80053; 81001; 81025; 83690; 83880; 84484; 85025; 86885; 86900; 86901; 87088; 93005; 96365; 96366; 99285; J1756; J7050; J7120

== ENCOUNTER 2022-04-29 10:16 | Day surgery (SDC) | payer MEDICAID ==
[2022-04-29] VITALS (22 sets, daily range): BP systolic 139–163; BP diastolic 79–100
[2022-04-29] MEDS ORDERED: THALITONE PO (10:33)
[2022-04-29] MEDS ORDERED: ACET-3068 PO (10:34)
[2022-04-29] MEDS ORDERED: DOCU-342 PO (10:34)
[2022-04-29] MEDS ORDERED: normal saline 1000ml 1,000 ML IV SCH (11:00)
[2022-04-29 11:02] LABS: BASOPHILS % (AUTO) 0 % (0-1); EOSINOPHILS # (AUTO) 0.2 X10'3 (0-0.9); EOSINOPHILS % (AUTO) 1.8 % (0-6); LYMPHOCYTES # (AUTO) 0.6 X10'3 (1.1-4.8); LYMPHOCYTES % (AUTO) 7.1 % (21-51); MEAN CORPUSCULAR HEMOGLOBIN 23.6 PG (27.0-31.0); MEAN CORPUSCULAR HGB CONC 31.9 g/dL (33.0-36.5); MEAN PLATELET VOLUME 6.1 FL (7.4-10.4); MONOCYTES # (AUTO) 1.1 X10'3 (0-0.9); MONOCYTES % (AUTO) 11.8 % (2-12); NEUTROPHILS # (AUTO) 7.2 X10'3 (1.8-7.7); NEUTROPHILS % (AUTO) 79.3 % (42-75); PLATELET COUNT 556 X10'3 (140-440); RED BLOOD COUNT 2.82 X10'6 (4.20-5.60); RED CELL DISTRIBUTION WIDTH 17.8 % (11.5-14.5)
[2022-04-29 11:04] LABS: HEMATOCRIT 20.9 % (35.0-45.0); HEMOGLOBIN 6.7 g/dl (12.0-16.0)
[2022-04-29] MEDS ORDERED: acetaminophen 325mg tablet PO PRN (11:25)
[2022-04-29] MEDS ORDERED: diphenhydrAMINE 25mg capsule PO PRN ×2 (11:25→11:50)
[2022-04-29] MEDS ORDERED: midazolam 1 mg/ML 2ml injection ONE (14:32)
[2022-04-29] MEDS ORDERED: fentaNYL/PF 50MCG/1 ML 2ML syringe ONE (14:32)
[2022-04-29] MEDS ORDERED: LIDOcaine 1% (10mg/ml) 2ml vial ONE (14:32)
[2022-04-30] MEDS ORDERED: sod chloride 0.9% 10ml flush syringe IV SCH (08:00)
== END 2022-04-29 16:55 | disposition home or self-care (01) ==
LOC: SSTAY O 10:16
PROVIDERS: ATTEND Radiology Vascular & Interventional Radiology
DX: L02.211 Cutaneous abscess of abdominal wall (principal); K65.1 Peritoneal abscess; Z79.899 Other long term (current) drug therapy; Z88.6 Allergy status to analgesic agent; Z88.8 Allergy status to other drugs, medicaments and biological substances; Z90.49 Acquired absence of other specified parts of digestive tract; Z98.51 Tubal ligation status; Z98.890 Other specified postprocedural states
CPT/HCPCS: 36415; 36430; 49406; 85025; 86885; 86900; 86901; 86920; 87070; 87077; 87186; 99152; 99153; C1729; C1769; J2250; J3010; J3490; J7030; P9016; Q0163; 10160; 77012; A4421; A6258; A6449

== ENCOUNTER 2022-05-20 22:54 | Emergency (ER) | payer MEDICAID ==
[~2022-05-20] VITALS: Ht 172.7 cm; Wt 87.8 kg
[~2022-05-20 22:54] MED LIST changes: +ACET-3068 PO; +DOCU-342 PO; +THALITONE PO
[2022-05-20 23:25] LABS: BASOPHILS % (AUTO) 0.8 % (0-1); EOSINOPHILS # (AUTO) 0.1 X10'3 (0-0.9); EOSINOPHILS % (AUTO) 1.8 % (0-6); HEMATOCRIT 30.5 % (35.0-45.0); HEMOGLOBIN 9.8 g/dl (12.0-16.0); LYMPHOCYTES # (AUTO) 0.6 X10'3 (1.1-4.8); LYMPHOCYTES % (AUTO) 11.2 % (21-51); MEAN CORPUSCULAR HEMOGLOBIN 25.2 PG (27.0-31.0); MEAN CORPUSCULAR HGB CONC 32.1 g/dL (33.0-36.5); MEAN CORPUSCULAR VOLUME 78.4 FL (78-98); MEAN PLATELET VOLUME 6.7 FL (7.4-10.4); MONOCYTES # (AUTO) 0.4 X10'3 (0-0.9); MONOCYTES % (AUTO) 8.2 % (2-12); NEUTROPHILS # (AUTO) 4.1 X10'3 (1.8-7.7); PLATELET COUNT 349 X10'3 (140-440); RED BLOOD COUNT 3.89 X10'6 (4.20-5.60); RED CELL DISTRIBUTION WIDTH 21.1 % (11.5-14.5); WHITE BLOOD COUNT 5.3 X10'3 (4.5-11.0)
[2022-05-20 23:29] LABS: CLARITY,URINE SLIGHTLY CLOUDY (Clear); COLOR,URINE YELLOW (Yellow); GLUCOSE, URINE NEGATIVE (Neg); KETONES,URINE NEGATIVE (Neg); LEUKOCYTE ESTERASE ,URINE NEGATIVE (Neg); NITRITES, URINE NEGATIVE (Neg); OCCULT BLOOD,URINE LARGE (Neg); PROTEIN,URINE 30 mg/dl (Neg); URINE HCG NEGATIVE (NEG); UROBILINOGEN,URINE 0.2 E.U/dL (0.2-1.0)
[2022-05-20 23:30] LABS: UA COLLECTION TYPE CLN CATCH MIDSTREAM
[2022-05-20 23:35] LABS: COARSE GRANULAR CAST 0-3 /LPF (NEGATIVE); RBC,URINE TNTC /HPF (0-2)
[2022-05-20 23:36] LABS: BACTERIA,URINE FEW /HPF (Neg); SQUAMOUS EPITHELIAL CELL,UR MODERATE /LPF (FEW); TRANSITIONAL EPI CELLS,URINE MODERATE /HPF
[2022-05-20 23:37] LABS: WBC,URINE 0-4 /HPF (0-4)
[2022-05-20] MEDS ORDERED: fentaNYL/PF 50MCG/1 ML 2ML syringe IV ONE (23:40)
[2022-05-20] MEDS ORDERED: ondansetron/PF 4mg/2ml inj IV ONE (23:40)
[2022-05-20 23:41] LABS: ALANINE AMINOTRANSFERASE 24 U/L (12-78); ALBUMIN 3.2 G/DL (3.4-5.0); ALBUMIN/GLOBULIN RATIO 0.7 (1.1-1.5); ALKALINE PHOSPHATASE 106 IU/L (46-116); ANION GAP 8 (8-16); ASPARTATE AMINO TRANSFERASE 20 U/L (10-37); BILIRUBIN,TOTAL 0.3 MG/DL (0.1-1.0); BLOOD UREA NITROGEN 21 MG/DL (7-18); BUN/CREATININE RATIO 11.1 (6.6-38.0); CALCIUM 8.9 MG/DL (8.5-10.1); CHLORIDE 102 MMOL/L (99-107); CREATININE 1.89 MG/DL (0.40-0.90); GLUCOSE 120 MG/DL (70-104); LIPASE 157 U/L (73-393); POTASSIUM 3.9 MMOL/L (3.5-5.1); SODIUM 139 MMOL/L (135-145); TOTAL PROTEIN 8.1 G/DL (6.4-8.2); eGFR 29 ML/MIN
[2022-05-20 23:42] LABS: ANISOCYTOSIS 3+; MICROCYTOSIS 1+; PLATELET ESTIMATE NORMAL
[2022-05-20 23:43] LABS: ELLIPTOCYTES FEW
[2022-05-21 01:13] VITALS: BP 119/76
== END 2022-05-21 01:00 | disposition home or self-care (01) ==
LOC: ER 22:54
DX: R10.12 Left upper quadrant pain (principal); I10 Essential (primary) hypertension; Z86.14 Personal history of Methicillin resistant Staphylococcus aureus infection; Z98.890 Other specified postprocedural states; Z88.8 Allergy status to other drugs, medicaments and biological substances; Z88.5 Allergy status to narcotic agent; Z79.899 Other long term (current) drug therapy; Z79.1 Long term (current) use of non-steroidal anti-inflammatories (NSAID); Z79.2 Long term (current) use of antibiotics
CPT/HCPCS: 36415; 80053; 81001; 81025; 83690; 84145; 85008; 85025; 96374; 96375; 99284; J2405; J3010

== ENCOUNTER 2022-05-31 04:49 | Emergency (ER) | payer MEDICAID ==
[~2022-05-31] VITALS: Ht 175.3 cm; Wt 86.4 kg
[2022-05-31 05:31] VITALS: BP 109/75
[2022-05-31] MEDS ORDERED: diatrozoate meglu/diatrozoate sod (37% iodine) 120ML oral solution PO ONE (09:35)
[2022-05-31] MEDS ORDERED: diatr meglu/diatrizoate 30ml oral sol.-(3 dose) bottle PO ONE (09:55)
[2022-05-31 10:32] LABS: BASOPHILS % (AUTO) 0.4 % (0-1); EOSINOPHILS # (AUTO) 0.1 X10'3 (0-0.9); EOSINOPHILS % (AUTO) 0.8 % (0-6); HEMATOCRIT 25.8 % (35.0-45.0); HEMOGLOBIN 8.5 g/dl (12.0-16.0); LYMPHOCYTES # (AUTO) 1.5 X10'3 (1.1-4.8); LYMPHOCYTES % (AUTO) 17.9 % (21-51); MEAN CORPUSCULAR HEMOGLOBIN 25.7 PG (27.0-31.0); MEAN CORPUSCULAR HGB CONC 32.8 g/dL (33.0-36.5); MEAN CORPUSCULAR VOLUME 78.2 FL (78-98); MEAN PLATELET VOLUME 7.2 FL (7.4-10.4); MONOCYTES # (AUTO) 0.8 X10'3 (0-0.9); MONOCYTES % (AUTO) 9.5 % (2-12); NEUTROPHILS # (AUTO) 6.2 X10'3 (1.8-7.7); NEUTROPHILS % (AUTO) 71.4 % (42-75); PLATELET COUNT 378 X10'3 (140-440); RED CELL DISTRIBUTION WIDTH 19.5 % (11.5-14.5); WHITE BLOOD COUNT 8.6 X10'3 (4.5-11.0)
[2022-05-31 10:35] LABS: ALANINE AMINOTRANSFERASE 27 U/L (12-78); ALBUMIN 3.2 G/DL (3.4-5.0); ALBUMIN/GLOBULIN RATIO 0.6 (1.1-1.5); ALKALINE PHOSPHATASE 134 IU/L (46-116); ANION GAP 9 (8-16); ASPARTATE AMINO TRANSFERASE 29 U/L (10-37); BILIRUBIN,TOTAL 0.6 MG/DL (0.1-1.0); BLOOD UREA NITROGEN 26 MG/DL (7-18); BUN/CREATININE RATIO 14.5 (6.6-38.0); CALCIUM 9.2 MG/DL (8.5-10.1); CHLORIDE 100 MMOL/L (99-107); CREATININE 1.79 MG/DL (0.40-0.90); GLUCOSE 97 MG/DL (70-104); SODIUM 136 MMOL/L (135-145); TOTAL CARBON DIOXIDE 27.2 MMOL/L (24-32); eGFR 30 ML/MIN
[2022-05-31 10:38] LABS: POTASSIUM 3.8 MMOL/L (3.5-5.1)
--- NOTE | 2022-05-31 12:08 | NUR ---
pt went to ct and is now back in room
== END 2022-05-31 13:43 | disposition home or self-care (01) ==
LOC: ER 04:51
DX: L02.211 Cutaneous abscess of abdominal wall (principal); R10.31 Right lower quadrant pain; G43.909 Migraine, unspecified, not intractable, without status migrainosus; I10 Essential (primary) hypertension; Z88.8 Allergy status to other drugs, medicaments and biological substances; Z88.5 Allergy status to narcotic agent; Z90.49 Acquired absence of other specified parts of digestive tract; Z98.890 Other specified postprocedural states; Z98.51 Tubal ligation status
CPT/HCPCS: 74176; 80053; 83605; 85025; 99284; Q9963

== ENCOUNTER 2022-06-01 12:56 | Emergency (ER) | payer MEDICAID ==
[~2022-06-01] VITALS: Ht 175.3 cm; Wt 111.3 kg
[2022-06-01] MEDS ORDERED: LIDOcaine 1% 30ml preserv. free vial ONE (15:19)
--- NOTE | 2022-06-01 15:37 | NUR ---
PT TO CT WITH TECH/NURSE
--- NOTE | 2022-06-01 16:03 | NUR ---
PT TO ANGIO
[2022-06-01 16:04] VITALS: BP 149/100
[2022-06-01 16:11] VITALS: BP 135/81
--- NOTE | 2022-06-01 16:28 | NUR ---
PATIENT TAKEN TO [facility], 1ML OF FLUID REMOVED FROM RLQ COLLECTION. PATIENT TOLERATED WELL. PATIENT RETURNED TO ER ROOM. BEDSIDE RN UNAVAILABLE FOR REPORT, UNABLE TO LOCATE CHARGE NURSE. REPORT GIVEN TO DR. JOHN.
[2022-06-01 18:20] VITALS: BP 124/84
== END 2022-06-01 18:23 | disposition home or self-care (01) ==
LOC: ER 12:57
DX: R10.31 Right lower quadrant pain (principal); G43.909 Migraine, unspecified, not intractable, without status migrainosus; I10 Essential (primary) hypertension; Z88.5 Allergy status to narcotic agent; Z88.8 Allergy status to other drugs, medicaments and biological substances; Z90.49 Acquired absence of other specified parts of digestive tract; Z98.890 Other specified postprocedural states; Z98.51 Tubal ligation status
CPT/HCPCS: 10160; 76942; 87070; 99284; J3490

== ENCOUNTER 2022-10-17 16:58 | Emergency (ER) | payer MEDICAID ==
[~2022-10-17] VITALS: Ht 175.3 cm; Wt 96.8 kg
[2022-10-17 17:29] LABS: BASOPHILS % (AUTO) 0.2 % (0-1); EOSINOPHILS # (AUTO) 0.2 X10'3 (0-0.9); EOSINOPHILS % (AUTO) 3.1 % (0-6); HEMATOCRIT 32.4 % (35.0-45.0); HEMOGLOBIN 10.5 g/dl (12.0-16.0); LYMPHOCYTES # (AUTO) 1.4 X10'3 (1.1-4.8); LYMPHOCYTES % (AUTO) 29.8 % (21-51); MEAN CORPUSCULAR HEMOGLOBIN 23.7 PG (27.0-31.0); MEAN CORPUSCULAR HGB CONC 32.4 g/dL (33.0-36.5); MEAN CORPUSCULAR VOLUME 73.4 FL (78-98); MEAN PLATELET VOLUME 7.1 FL (7.4-10.4); MONOCYTES # (AUTO) 0.6 X10'3 (0-0.9); MONOCYTES % (AUTO) 11.4 % (2-12); NEUTROPHILS # (AUTO) 2.7 X10'3 (1.8-7.7); NEUTROPHILS % (AUTO) 55.5 % (42-75); PLATELET COUNT 270 X10'3 (140-440); RED BLOOD COUNT 4.42 X10'6 (4.20-5.60); RED CELL DISTRIBUTION WIDTH 18.6 % (11.5-14.5); WHITE BLOOD COUNT 4.9 X10'3 (4.5-11.0)
[2022-10-17 17:44] LABS: CLARITY,URINE CLEAR (Clear); COLOR,URINE YELLOW (Yellow); GLUCOSE, URINE NEGATIVE (Neg); KETONES,URINE NEGATIVE (Neg); LEUKOCYTE ESTERASE ,URINE NEGATIVE (Neg); NITRITES, URINE NEGATIVE (Neg); OCCULT BLOOD,URINE LARGE (Neg); PROTEIN,URINE 100 mg/dl (Neg); UROBILINOGEN,URINE 0.2 E.U/dL (0.2-1.0)
[2022-10-17 17:45] LABS: ALANINE AMINOTRANSFERASE 24 U/L (12-78); ALBUMIN 3.3 G/DL (3.4-5.0); ALBUMIN/GLOBULIN RATIO 0.7 (1.1-1.5); ALKALINE PHOSPHATASE 87 IU/L (46-116); ANION GAP 7 (8-16); ASPARTATE AMINO TRANSFERASE 21 U/L (10-37); BILIRUBIN,TOTAL 0.2 MG/DL (0.1-1.0); BLOOD UREA NITROGEN 29 MG/DL (7-18); BUN/CREATININE RATIO 19.9 (10.0-20.0); CALCIUM 8.4 MG/DL (8.5-10.1); CHLORIDE 104 MMOL/L (99-107); CREATININE 1.46 MG/DL (0.40-0.90); GLUCOSE 120 MG/DL (70-104); LIPASE 113 U/L (73-393); SODIUM 140 MMOL/L (135-145); TOTAL CARBON DIOXIDE 28.6 MMOL/L (24-32); TOTAL PROTEIN 7.8 G/DL (6.4-8.2); eGFR 38 ML/MIN
[2022-10-17 17:46] LABS: URINE HCG NEGATIVE (NEG)
[2022-10-17 17:52] LABS: UA COLLECTION TYPE CLN CATCH MIDSTREAM
[2022-10-17 17:53] LABS: BACTERIA,URINE NONE SEEN /HPF (Neg); MUCUS STRANDS NONE SEEN /LPF (Neg); RBC,URINE 20-50 /HPF (0-2); SQUAMOUS EPITHELIAL CELL,UR FEW /LPF (FEW); WBC,URINE 0-4 /HPF (0-4)
[2022-10-17] MEDS ORDERED: normal saline 1000ML IV soln IVB ONE (20:05)
[2022-10-17] MEDS ORDERED: acetaminophen 325mg tablet PO ONE (21:20)
[2022-10-17] MEDS ORDERED: normal saline 1000ml 1,000 ML IV ONE (21:25)
[2022-10-17] MEDS ORDERED: iohexol 300mg/ml 100ml inj. ONE (21:27)
[2022-10-17] MEDS ORDERED: amLODIPine 5mg tablet PO ONE (22:35)
[2022-10-17] MEDS ORDERED: AMLO5TAB95 PO (22:49)
[2022-10-17 23:22] VITALS: BP 184/22
== END 2022-10-17 23:23 | disposition home or self-care (01) ==
LOC: ER 16:58
DX: T81.9XXA Unspecified complication of procedure, initial encounter (principal); I10 Essential (primary) hypertension; G43.909 Migraine, unspecified, not intractable, without status migrainosus; D64.9 Anemia, unspecified; Z86.14 Personal history of Methicillin resistant Staphylococcus aureus infection; Z98.890 Other specified postprocedural states; Z88.8 Allergy status to other drugs, medicaments and biological substances; Z88.5 Allergy status to narcotic agent; Z79.899 Other long term (current) drug therapy; Z79.1 Long term (current) use of non-steroidal anti-inflammatories (NSAID); Z79.2 Long term (current) use of antibiotics
CPT/HCPCS: 74177; 80053; 81001; 81025; 83690; 85025; 96360; 96361; 99285; J3490; J7030; Q9967

== ENCOUNTER 2022-11-09 09:32 | Outpatient (CLI) | payer MEDICAID ==
[~2022-11-09 09:32] MED LIST changes: +AMLO5TAB95 PO
== END 2022-11-09 23:59 | disposition home or self-care (01) ==
LOC: RAD 09:32
PROVIDERS: ATTEND Family Medicine
DX: G93.89 Other specified disorders of brain (principal); M85.88 Other specified disorders of bone density and structure, other site; J34.89 Other specified disorders of nose and nasal sinuses; R22.0 Localized swelling, mass and lump, head
CPT/HCPCS: 70551

== ENCOUNTER 2022-11-30 07:53 | Outpatient (CLI) | payer MEDICAID ==
[~2022-11-30 07:53] MED LIST changes: -DOCU-342 PO; +DOCU-391 PO
[2022-11-30] MEDS ORDERED: GADOTERATE MEGLUMINE 7.5 MMOL/15 ML VIAL IV ONE (13:01)
== END 2022-11-30 23:59 | disposition home or self-care (01) ==
LOC: RAD 07:53
PROVIDERS: ATTEND Family Medicine
DX: G08 Intracranial and intraspinal phlebitis and thrombophlebitis (principal); G93.89 Other specified disorders of brain
CPT/HCPCS: 70544; 70552; A9575

== ENCOUNTER 2023-01-03 07:36 | Emergency (ER) | payer MEDICAID ==
[~2023-01-03] VITALS: Ht 172.7 cm; Wt 90.9 kg
[2023-01-03] MEDS ORDERED: amox tr/potassium clavulanate 875/125mg TAB PO ONE (08:45)
[2023-01-03] MEDS ORDERED: METR-159 PO (08:47)
[2023-01-03] MEDS ORDERED: AMOX-117 PO (08:47)
[2023-01-03 08:59] VITALS: BP 147/90
== END 2023-01-03 09:00 | disposition home or self-care (01) ==
LOC: ER 07:36
DX: R10.84 Generalized abdominal pain (principal); G43.909 Migraine, unspecified, not intractable, without status migrainosus; R14.0 Abdominal distension (gaseous); I10 Essential (primary) hypertension; Z87.19 Personal history of other diseases of the digestive system; Z90.49 Acquired absence of other specified parts of digestive tract; Z98.891 History of uterine scar from previous surgery; Z98.51 Tubal ligation status; Z88.5 Allergy status to narcotic agent; Z88.8 Allergy status to other drugs, medicaments and biological substances; Z79.2 Long term (current) use of antibiotics; Z79.899 Other long term (current) drug therapy
CPT/HCPCS: 99283

== ENCOUNTER 2023-05-06 09:04 | Outpatient (CLI) | payer MEDICAID ==
[2023-05-06] MEDS ORDERED: iohexol 300mg/ml 100ml inj. ONE (09:16)
== END 2023-05-06 23:59 | disposition home or self-care (01) ==
LOC: RAD 09:04
PROVIDERS: ATTEND Internal Medicine
DX: K65.1 Peritoneal abscess (principal); R16.0 Hepatomegaly, not elsewhere classified; K46.9 Unspecified abdominal hernia without obstruction or gangrene
CPT/HCPCS: 74177; J3490; Q9967

== ENCOUNTER → 2023-08-27 | Outpatient (CLI) | payer MEDICAID | END | disposition home or self-care (01) | LOC: RAD 09:47 | PROVIDERS: ATTEND Surgery | DX: K75.0 Abscess of liver (principal); Z90.49 Acquired absence of other specified parts of digestive tract; Z98.890 Other specified postprocedural states | CPT/HCPCS: 74176 ==

== ENCOUNTER 2023-12-19 14:36 | Outpatient (CLI) | payer MEDICAID ==
[2023-12-19] MEDS ORDERED: GADOTERATE MEGLUMINE 7.5 MMOL/15 ML VIAL IV ONE (15:59)
== END 2023-12-19 23:59 | disposition home or self-care (01) ==
LOC: MRI 14:36
PROVIDERS: ATTEND Surgery
DX: K65.0 Generalized (acute) peritonitis (principal); N88.8 Other specified noninflammatory disorders of cervix uteri; N83.202 Unspecified ovarian cyst, left side
CPT/HCPCS: 72197; 74183; A9575